=== PATIENT | male | born 1955 | race Caucasian/White ===

== ENCOUNTER 2019-11-09 13:33 | Inpatient (IN) | payer OTHER ==
[~2019-11-09] VITALS: Ht 193 cm; Wt 136.1 kg
--- OUTSIDE RECORDS SUMMARY | 2019-11-09 13:45 | XMS REPORT | Clinical Summary ---
Author Author [facility] Address Unknown Phone Unavailable Care Team Providers Care Tool Crib Attendant Name Role Phone Provider, Unknown PCP Unavailable Allergies Comments Active Allergy Reactions Severity Noted Date nausea Pentazocine 07/20/2018 Topiramate 11/13/2015 Medications End Date Status Medication Sig Dispensed Refills Start Date Active ARMOUR THYROID 30 mg 0 tablet 6 Active pantoprazole (PROTONIX) 0 40 MG EC tablet 6 Active BENICAR HCT 20-12.5 mg 0 per tablet 6 Active montelukast (SINGULAIR) Take 10 mg by 5 10 mg tablet mouth once 6 daily. Active SUMAtriptan (IMITREX) 50 TAKE 1 TAB BY 5 08/08 MG tablet MOUTH ONCE, 6 NEEDED HEADACHE,INST R:MAY REPEAT ONE TIME AFTER 2 HOURS Active phentermine (ADIPEX-P) TAKE 1 TABLET 0 10/16/2 01 37.5 mg tablet BY MOUTH 6 EVERY DAY IN THE MORNING Active aspirin (ECOTRIN) 81 MG Take 81 mg by 0 enteric coated tablet mouth. Active folic acid (FOLVITE) 400 Take 400 mcg 0 MCG tablet by mouth. Active ezetimibe-simvastatin Take 1 tablet 0 (VYTORIN) 10-10 mg per by mouth tablet nightly. Active verapamil (CALAN) 120 MG Take 120 mg 0 tablet by mouth 2 (two) times a day. Active divalproex (DEPAKOTE) 500 Take 500 mg 0 MG EC tablet by mouth 3 (three) times a day. Active cholecalciferol, vitamin Take 10,000 0 D3, (VITAMIN D3) 5,000 tablets by unit tablet mouth. Active zinc 50 mg tablet Take by 0 mouth. Active potassium 99 mg tablet Take 120 0 tablets by mouth. Active magnesium 250 mg tablet Take 500 0 tablets by mouth. Active Linzess 72 mcg capsule TAKE 1 30 capsule 4 CAPSULE BY 0 MOUTH EVERY DAY BEFORE BREAKFAST 08/04/2019 Discontinued linaclotide (LINZESS) 72 Take 1 30 capsule 4 0 mcg capsule capsule (72 9 mcg total) by mouth daily before breakfast. Active Problems Problem Noted Date Gastroparesis 07/20/2018 Chronic constipation 07/20/2018 Gastroesophageal reflux disease 07/20/2018 Encounters Care Team Description Date Type Specialty Casey Leal NP 08/04/2019 Refill Gastroenterology after 11/08/2018 Family History Medical History Relation Name Comments Cancer Paternal Aunt Relation Name Status Comments Paternal Aunt Social History Date Tobacco Use Types Packs/Day Years Used Never Smoker Smokeless Tobacco: Never Used Drinks/Week oz/Week Comments Alcohol Use No Sex Assigned at Date Recorded Not on file Industry Job Start Date Occupation Not on file Not on file Not on file Travel End Travel History Travel Start No recent travel history available. Last Filed Vital Signs Not on file Plan of Treatment Health Maintenance Due Date Last Done Comments DIABETIC RETINAL EYE EXAM 1955 DIABETIC FOOT EXAM 07/18/1965 URINE MICROALBUMIN 07/18/1965 COLONOSCOPY SCREENING 07/18/2005 SHINGLES VACCINES (#1) 07/18/2005 INFLUENZA VACCINE 10/25/2019 Results Not on fileafter 11/08/2018 Insurance Type Payer Benefit Subscriber ID Effective Phone Address Plan / Dates Group HMO AETNA AETNA xxxxxxxxxx 2008-P HMO,POS,EP resent O, MC/EC [phone] Advance Directives For more information, please contact: [phone] Patient Hand Pattern Marker Explanation Type Date Recorded Advance Directives, Living Will and 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
--- OUTSIDE RECORDS SUMMARY | 2019-11-09 13:46 | XMS REPORT | Continuity of Care Document ---
Author Author [facility] Rikki Information STEVEN [place] Information Exchange Address Unknown Phone Unavailable Care Team Providers Care Clinical Dermatologist Name Role Phone [facility] [employer] Information Exchange Unavailable Un available Problems Problem Status Onset Date Classification Date Reported Comments Source PNA Active 1 04/08/2016 [facility] PROLAPSED LUMBAR INTERVERTEBRAL DISC Active 08/22/2016 [facility] Seizure (finding) Active 04/23/2016 Problem 02/04/2019 mini siezures- pt did not know he had t hem [facility] Transient ischemic attack (disorder) Active 04/23/2016 Problem 02/04/2019 [facility] G97.0 Active 09/04/2015 [facility] Epidermoid cyst of skin of scalp (disorder) Active 08/22/2014 Problem 02/04/2019 Data migrated from [employer] on 08/30/14. [facility] Allergic rhinitis (disorder) A ctive 08/22/2013 Problem 02/04/2019 Data migrated from [employer] on . [facility] Anxiety disorder (disorder) Ac tive 08/22/2013 Problem 02/04/2019 Data migrated from [employer] on . Medical [facility] Benign essential hypertension (disorder) Active 08/22/2013 Problem 02/04/2019 Data migrated from [employer] on 07/25/14. [facility] Coronary arteriosclerosis (disorder) Active 08/22/2013 Problem 02/04/2019 Data migrated from [employer] on . [facility] Gastroesophageal reflux disease (disorder) Active 08/22/2013 Problem 02/04/2019 Data migrated from [employer] on 07/25/14. [facility] Hyperlipidemia (disorder) Acti ve 08/22/2013 Problem 02/04/2019 Data migrated from [employer] on . [facility] Impaired glucose tolerance (disorder) Active 08/22/2013 Problem 02/04/2019 Data migrated from [employer] on . [facility] Insomnia (disorder) Active 08/22/2013 Problem 02/04/2019 Data migrated from [employer] on . [facility] Migraine (disorder) Active 08/22/2013 Problem 02/04/2019 Data migrated from [employer] on . [facility] Myocardial infarction (disorder) Resolved 08/24/2007 Problem 02/04/2019 [facility] Appendicitis (disorder) Resolv ed Problem Medical Group,[facility] Arthritis (disorder) Resolved Problem 02/04/2019 [facility] Asthma (disorder) Resolved Problem 02/04/2019 [facility] Bronchitis (disorder) Resolved Problem 02/04/2019 [facility] History of - pneumonia (context-dependent category) Active Problem 02/04/2019 [facility] Group Heart disease (disorder) Resol denise Problem Medical [facility] Hypercholesterolemia (disorder) Resolved Problem [facility] Hypertensive disorder, systemic arterial (disorder) Resolved Problem 02/04/2019 [facility] Hypothyroidism (disorder) Acti ve Problem Medical [facility] Obesity (disorder) Active Problem 02/04/2019 [facility] Osteoarthritis (disorder) Acti ve Problem Medical [facility] Large prostate (finding) Resol denise Problem Medical [facility] Cyst of scalp (disorder) Resol denise Problem Medical Group,[facility] Herniated structure (morphologic abnormality) Resolved Problem 09/09/2015 [facility] Abnormal gastric motility (finding) Active Problem [facility] Viral upper respiratory tract infection (disorder) Active Problem 02/04/2019 [facility] PNEUMONIA IN DISEASES CLASSIFIED ELSEWHE Active [facility] Medications Medication Details Route Status Patient Instructions Ordering Provider Order Date Source cetirizine 10 mg oral tablet 1 0 mg = 1 tab, PO, Daily, # 30 tab, 0 Refill(s), Pharmacy: [id number] Active 02/01/2019 [facility] Codeine Phosphate 0.5 MG/ML / Guaifenesi n 15 MG/ML Oral Solution 10 mL, PO, Q4H, PRN for cough, # 200 mL, 0 Refill(s) Active 02/01/2019 [facility] Levofloxacin 500 MG Oral Tablet [Levaquin] 500 mg = 1 tab, PO, Q24H, X 10 day, # 10 tab, 0 Refill(s), Pharmacy: [facility]/pharmacy #[id number] Active 06/22/2018 [facility] 200 ACTUAT Albuterol 0.09 MG/ACTUAT Mete red Dose Inhaler [ProAir HFA] 2 puff, INHALER, Q4H, PRN for wheezing, # 8.5 gm, 0 Refill(s), Pharmacy: [facility][id number] Active 06/22/2018 [facility] Levofloxacin 500 MG Oral Tablet [Levaquin] 500 mg = 1 tab, PO, Q24H, X 10 day, # 10 tab, 0 Refill(s), Pharmacy: [facility] Inactive 06/22/2018 [facility] Codeine Phosphate 2 MG/ML / Guaifenesin 20 MG/ML Oral Solution 10 mL, PO, Q4H, PRN for cough, X 7 day, # 180 mL, 0 Refill(s) Active 06/22/2018 [facility] 200 ACTUAT Albuterol 0.09 MG/ACTUAT Mete red Dose Inhaler [ProAir HFA] 2 puff, INHALER, Q4H, PRN for wheezing, # 8.5 gm, 0 Refill(s), Pharmacy: [facility] Inactive 06/22/2018 [facility] Metoclopramide 10 MG Oral Tablet 10 mg = 1 tab, PO, Daily, # 360 tab, 0 Refill(s) Active 06/22/2018 [facility] SUMAtriptan 100 mg oral tablet 100 mg = 1 tab, PO, Daily, PRN for migraine headache, # 18 tab, 0 Refill(s) Active 06/22/2018 [facility] folic acid 0.8 mg oral tablet 0.8 mg = 1 tab, PO, Daily, 0 Refill(s) Active 06/22/2018 [facility] pantoprazole 40 mg oral enteric coated tablet 40 mg = 1 tab, PO, Daily, # 90 tab, 0 Refill(s) Active 06/22/2018 [facility] Vitamin D3 10,000 intl units oral capsule 10,000 IntlUnit = 1 cap, PO, 0 Refill(s) Active 06/22/2018 [facility] Hydrochlorothiazide 12.5 MG / Olmesartan medoxomil 20 MG Oral Tablet 1 tab, PO, Daily, # 90 tab, 0 Refill(s) Active 06/22/2018 [facility] ezetimibe 10 MG Oral Tablet [Zetia] 10 mg = 1 tab, PO, Daily, # 90 tab, 0 Refill(s) Active 06/22/2018 [facility] gabapentin 100 MG Oral Capsule 100 mg = 1 cap, PO, Q8H, Please send all requests for new Rx or refills to the patient's virtual recruiter or physiognomist, not to Dr. Ceja, # 90 cap, 0 Refill(s) Active 02/18/2017 [facility] Furosemide 40 MG Oral Tablet 4 0 mg = 1 tab, PO, BID, Please send all requests for new Rx or refills to the patient's virtual recruiter or physiognomist, not to Dr. Ceja, # 60 tab, 0 Refill(s) Active 02/18/2017 [facility] cetirizine 10 mg oral tablet 1 0 mg = 1 tab, PO, Bedtime, Please send all requests for new Rx or refills to the patient's virtual recruiter or physiognomist, not to Dr. Ceja, # 30 tab, 0 Refill(s) Active 02/18/2017 [facility] verapamil 120 mg oral capsule, extended release 120 mg = 1 tab, PO, Daily, do not crush or chew Please send all requests for new Rx or refills to the patient's virtual recruiter or physiognomist, not to Dr. Jonh Pool, # 30 tab, 0 Refill(s) Active 02/18/2017 [facility] nter SUMAtriptan 50 mg oral tablet 50 mg = 1 tab, PO, Q2H, PRN Headache 4-6, 0 Refill(s) Active 02/18/2017 [facility] nter potassium chloride 20 mEq oral tablet, extended releas e 40 mEq = 2 tab, PO, BID, do not crush or chew Follow your Potassium level with your human services manager. Please send all requests for new Rx or refills to the patient's virtual recruiter or physiognomist, not to Dr. Ceja, # 120 tab, 0 Refill(s) Active 02/18/2017 [facility] Sumatriptan Notes: (Same As: I mitrex) No Longer Active 02/13/2017 [facility] gabapentin 100 MG Oral Capsule Notes: (Same as: Neurontin) No Longer Active 02/12/2017 [facility] Furosemide 40 MG Oral Tablet 4 0 mg, 1 tab, Route: PO, Drug form: TAB, BID, Dosing Weight 125, kg, Start date: 02/11/17 9:00:00 [employer]IES[employer] PRODUCTION ASSOCIATE, Duration: 30 day, Stop date: 03/12/17 17:00:00 BIODIESEL PRODUCTION ASSOCIATE No Longer Active 02/11/2017 [facility] Antwan Thyroid Notes: (Same As : Antwan Thyroid, S-P-T) No Longer Active 02/11/2017 [facility] Verapamil 120 mg, 1 tab, Route : PO, Drug form: ERTAB, Daily, Dosing Weight 125, kg, Start date: 02/11/17 9:00:00 BIODIESEL PRODUCTION ASSOCIATE, Duration: 30 day, Stop date: 03/12/17 9:00:00 BIODIESEL PRODUCTION ASSOCIATE No Longer Active 02/11/2017 [facility] nter 24 HR Divalproex Sodium 500 MG Extended Release Tablet Notes: (Same as: Depakote ER) Once daily dosing; indicated for migraines. Divalproex sodium extended-release tab. Do not chew or crush. "Do Not Crush" No Longer Active 02/11/2017 [facility] Sodium Chloride 0.9% (Bolus) IV 250 mL, 250 ml/hr, Infuse Over: 1 hr, Route: IV, 250, Drug form: INJ, ONCE, Priority: STAT, Dosing Weight 125 kg, Start date: 02/10/17 23:04:00 BIODIESEL PRODUCTION ASSOCIATE, Stop date: 02/10/17 23:04:00 BIODIESEL PRODUCTION ASSOCIATE Inactive 02/11/2017 [facility] Crestor Notes: (Same As: Crest or) No Longer Active 02/11/2017 [facility] cetirizine Notes: (Same As: Nigel rtec) No Longer Active 02/11/2017 [facility] rosuvastatin Notes: Same as Cr estor Inactive 02/11/2017 [facility] Loratadine 10 mg, Route: PO, B edtime, Dosing Weight 125, kg, Start date: 02/10/17 21:00:00 BIODIESEL PRODUCTION ASSOCIATE, Duration: 30 day, Stop date: 03/11/17 21:00:00 BIODIESEL PRODUCTION ASSOCIATE Inactive 02/11/2017 [facility] Sodium Chloride 0.9% (Bolus) IV 500 mL, 250 ml/hr, Infuse Over: 2 hr, Route: IV, 500, Drug form: INJ, ONCE, Priority: STAT, Dosing Weight 125 kg, Start date: 02/10/17 20:11:00 BIODIESEL PRODUCTION ASSOCIATE, Stop date: 02/10/17 20:11:00 BIODIESEL PRODUCTION ASSOCIATE Inactive 02/11/2017 [facility] Pulmicort Respules Notes: ([facility] e As: Pulmicort) No Longer Active 02/10/2017 [facility] Sumatriptan Notes: (Same As: I mitrex) No Longer Active 02/10/2017 [facility] Potassium Chloride Notes: ([facility] e as: K-Dur 20) "Do Not Crush" With food and full glass of water No Longer Active 02/10/2017 [facility] nter SUMAtriptan 50 mg oral tablet 50 mg = 1 tab, PO, ONCE, PRN Headache 1-3, 0 Refill(s) No Longer Active 02/10/2017 [facility] nter Verapamil 120 mg, PO, Daily, 0 Refill(s) No Longer Active 02/10/2017 [facility] 24 HR Divalproex Sodium 500 MG Extended Release Tablet 500 mg = 1 tab, PO, Daily, 0 Refill(s) Active 02/10/2017 [facility] nter rosuvastatin 40 mg oral tablet 40 mg = 1 tab, PO, Bedtime, 0 Refill(s) Active 02/10/2017 [facility] heparin sodium, porcine 2500 UNT/ML Injectable Solutio n Notes: porcine heparin No Longer Active 02/10/2017 [facility] nter NS (Bolus) IV 250 mL, 250 ml/h r, Infuse Over: 1 hr, Route: IV, 250, Drug form: INJ, ONCE, Priority: STAT, Dosing Weight 125 kg, Start date: 02/09/17 17:28:00 BIODIESEL PRODUCTION ASSOCIATE, Stop date: 02/09/17 17:28:00 BIODIESEL PRODUCTION ASSOCIATE Inactive 02/09/2017 [facility] Potassium Chloride Notes: ([facility] as: K-Dur 20) "Do Not Crush" With food and full glass of water No Longer Active 02/09/2017 [facility] Sodium Chloride 0.9% (Bolus) IV 250 mL, 250 ml/hr, Infuse Over: 1 hr, Route: IV, 250, Drug form: INJ, ONCE, Dosing Weight 125 kg, Start date: 02/09/17 16:17:00 BIODIESEL PRODUCTION ASSOCIATE, Stop date: 02/09/17 16:17:00 BIODIESEL PRODUCTION ASSOCIATE Inactive 02/09/2017 [facility] verapamil 120 mg oral tablet 1 20 mg = 1 tab, PO, Daily, 0 Refill(s) No Longer Active 02/09/2017 [facility] divalproex sodium 125 mg oral enteric co ated tablet (Depakote) 125 mg = 1 tab, PO, Daily, 0 Refill(s) No Longer Active 02/09/2017 [facility] thyroid (CORRECTION) 60 MG Oral Tablet [[place] Thyroid] 60 mg = 1 tab, PO, Daily, # 30 tab, 1 Refill(s) Active 02/09/2017 [facility] nter Potassium Chloride Notes: ([facility] e as: K-Dur 20) "Do Not Crush" With food and full glass of water No Longer Active 02/09/2017 [facility] Codeine Phosphate 10 MG / Guaifenesin 30 0 MG Oral Tablet Notes: (Same As: Robitussin AC) No Longer Active 02/09/2017 [facility] nter Furosemide Notes: (Same as: Yulia ramirez) MEDICATION WASTE Product Size: 40 mg Product Wasted: ___ mg No Longer Active 02/08/2017 [facility] montelukast Notes: (Same as:Si ngulair) No Longer Active 02/08/2017 [facility] divalproex sodium 125 mg oral enteric co ated tablet (Depakote) Notes: (Same as: Depakote Delayed Releas e) Do not confuse with the extended-release tablet. Delayed absorption, enteric coated tablet. Do not crush No Longer Active 02/08/2017 [facility] Furosemide 20 MG Oral Tablet N otes: (Same as: Lasix) May cause GI upset. Give with food or milk. No Longer Active 02/07/2017 [facility] pantoprazole Notes: Tablet joshua uld not be chewed or crushed. (Same as: Protonix) N o Longer Active 02/07/2017 [facility] nter Verapamil Notes: (Same As: Hardy an, Isoptin) "Avoid grapefruit and grapefruit juice" No Longer Active 02/07/2017 [facility] nter [place] Thyroid Notes: (Same As : Antwan Thyroid, S-P-T) No Longer Active 02/07/2017 [facility] Hydrochlorothiazide 12.5 MG / Olmesartan medoxomil 20 MG Oral Tablet [Benicar HCT 20/12.5] 1 tab, Route: PO, Drug Form: TAB, Dosing Weight 121.364, kg, Daily, Start date: 02/07/17 9:00:00 BIODIESEL PRODUCTION ASSOCIATE, Duration: 30 day, Stop date: 03/08/17 9:00:00 BIODIESEL PRODUCTION ASSOCIATE No Longer Active 02/07/2017 [facility] nter Microzide Notes: (Same as: Sarwat rozide) With food. No Longer Active 02/07/2017 [facility] Folic Acid 0.4 mg, 1 tab, Rout e: PO, Drug form: TAB, Daily, Dosing Weight 121.364, kg, Start date: 02/07/17 9:00:00 BIODIESEL PRODUCTION ASSOCIATE, Duration: 30 day, Stop date: 03/08/17 9:00:00 BIODIESEL PRODUCTION ASSOCIATE No Longer Active 02/07/2017 [facility] nter clopidogrel Notes: (Same As: P lavix) No Longer Active 02/07/2017 [facility] Vitamin D3 Notes: Same as: Vit poon D3 No Longer Active 02/07/2017 [facility] Aspirin Enteric Coated Notes: Do not crush or chew. (Same As: Ecotrin) No Longer Active 02/07/2017 [facility] nter Benicar 20 mg, 1 tab, Route: P O, Drug form: TAB, Daily, Start date: 02/07/17 9:00:00 BIODIESEL PRODUCTION ASSOCIATE, Duration: 30 day, Stop date: 03/08/17 9:00:00 BIODIESEL PRODUCTION ASSOCIATE No Longer Active 02/07/2017 [facility] influenza virus vaccine, inactivated Notes: (Same as: Fluzone Quadrivalent, Fluarix Quadrivalent) For 3 years of age and older (0.5 mL IM) Shake well before use Inactive 02/07/2017 [facility] nter Docusate Notes: (Same as: Cola ce) (Do Not Crush) No Longer Active 02/07/2017 [facility] Albuterol 0.833 MG/ML / Ipratropium Brom kathy 0.167 MG/ML Inhalant Solution [DuoNeb] Notes: (Same as: Duoneb) No Longer Active 02/07/2017 [facility] Dextromethorphan Hydrobromide 10 MG / Gu aifenesin 200 MG Oral Capsule Notes: (dextromethorphan-guaifenesin 10- 100mg/5ml 10 ml oral SOLN ud) (Same as: Robitussin DM) N o Longer Active 02/07/2017 [facility] nter Ondansetron Notes: (Same as: Omayra lane) MEDICATION WASTE Product Size: 4 mg Product Wasted: ___ mg No Longer Active 02/07/2017 [facility] Acetaminophen 325 MG / Hydrocodone Lamar trate 5 MG Oral Tablet Notes: (Same as: Kulm 325/5) Do not ex ceed 4gm/day of acetaminophen. No Longer Active 02/07/2017 [facility] Acetaminophen Notes: Do not ex ceed 4 gm/day. (Same as: Tylenol) No Longer Active 02/07/2017 [facility] Docusate 100 mg, Route: PO, Dr ug form: CAP, BID, Dosing Weight 121.364, kg, Start date: 02/05/17 17:00:00 BIODIESEL PRODUCTION ASSOCIATE, Duration: 30 day, Stop date: 03/07/17 9:00:00 BIODIESEL PRODUCTION ASSOCIATE Inactive 02/05/2017 [facility] nter Dextromethorphan Hydrobromide 10 MG / Gu aifenesin 200 MG Oral Capsule 1 cap, Route: PO, Drug Form: CAP, Dosing Weight 121.364, kg, Q4H, PRN Cough, Start date: 02/05/17 15:14:00 BIODIESEL PRODUCTION ASSOCIATE, Duration: 30 day, Stop date: 03/07/17 15:13:00 BIODIESEL PRODUCTION ASSOCIATE Inactive 02/05/2017 [facility] Ondansetron 4 mg, Route: IVP, Q6H, Dosing Weight 121.364, kg, PRN Nausea & Vomiting, Start date: 02/05/17 15:14:00 BIODIESEL PRODUCTION ASSOCIATE, Duration: 30 day, Stop date: 03/07/17 15:13:00 BIODIESEL PRODUCTION ASSOCIATE Inactive 02/05/2017 [facility] nter Acetaminophen 325 MG / Hydrocodone Lamar trate 5 MG Oral Tablet 1 tab, Route: PO, Drug Form: TAB, Dosing Weight 121.364, kg, Q4H, PRN Pain Score 4-6, Start date: 02/05/17 15:14:00 BIODIESEL PRODUCTION ASSOCIATE, Duration: 30 day, Stop date: 03/07/17 15:13:00 BIODIESEL PRODUCTION ASSOCIATE Inactive 02/05/2017 [facility] Acetaminophen 100.4 F, Start date: 02/05/17 15:14:00 BIODIESEL PRODUCTION ASSOCIATE, Duration: 30 day, Stop date: 03/07/17 15:13:00 BIODIESEL PRODUCTION ASSOCIATE Inactive 02/05/2017 [facility] Albuterol 0.833 MG/ML / Ipratropium Brom kathy 0.167 MG/ML Inhalant Solution [DuoNeb] 3 ml, Route: NEB, Drug Form: SOLN, Dosin g Weight 121.364, kg, PRN, PRN Respiratory Protocol, Start date: 02/05/17 15:14:00 BIODIESEL PRODUCTION ASSOCIATE, Duration: 30 day, Stop date: 03/07/17 15:13:00 BIODIESEL PRODUCTION ASSOCIATE Inactive 02/05/2017 [facility] Hydromorphone Notes: Same as D ilaudid No Longer Active 08/27/2016 [facility] Robaxin Notes: (Same as:Robaxi n) Inactive 08/27/2016 [facility] Robaxin Notes: (Same as:Robaxi n) Inactive 08/27/2016 [facility] Dilaudid Notes: Same as Dilaud id Inactive 08/27/2016 [facility] Lactated Ringers 1,000 mL 1,00 0 mL, Rate: 125 ml/hr, Infuse over: 8 hr, Route: IV, Dosing Weight 121.364 kg, Total Volume: 1,000, Start date: 08/27/16 12:23:00 CDT, Duration: 30 day, Stop date: 09/26/16 12:22:00 CDT No Longer Active 08/27/2016 [facility] Promethazine Notes: Do not giv e IV push. (Same as: Phenergan) No Longer Active 08/27/2016 [facility] Hydromorphone Notes: Same as D ilaudid No Longer Active 08/27/2016 [facility] Acetaminophen 325 MG / Hydrocodone Lamar trate 10 MG Oral Tablet Notes: Do not exceed 4gm/day of acetamin ophen. (Same as: Kulm 325/10) No Longer Active 08/27/2016 [facility] Ondansetron Notes: (Same as: Omayra lane) MEDICATION WASTE Product Size: 4 mg Product Wasted: ___ mg No Longer Active 08/27/2016 [facility] Lactated Ringers 1,000 mL 1,00 0 mL, Rate: 125 ml/hr, Infuse over: 8 hr, Route: IV, Dosing Weight 125.511 kg, Total Volume: 1,000, Start date: 08/27/16 10:37:00 CDT, Duration: 30 day, Stop date: 09/26/16 10:36:00 CDT Inactive 08/27/2016 [facility] Hydromorphone Notes: Same as D ilaudid No Longer Active 08/15/2016 [facility] Acetaminophen 325 MG / Hydrocodone Lamar trate 10 MG Oral Tablet Notes: Do not exceed 4gm/day of acetamin ophen. (Same as: Kulm 325/10) No Longer Active 08/15/2016 [facility] Ondansetron Notes: (Same as: Omayra lane) MEDICATION WASTE Product Size: 4 mg Product Wasted: ___ mg No Longer Active 08/15/2016 [facility] Promethazine Notes: Do not giv e IV push. (Same as: Phenergan) No Longer Active 08/15/2016 [facility] Lactated Ringers 1,000 mL 1,00 0 mL, Rate: 125 ml/hr, Infuse over: 8 hr, Route: IV, Dosing Weight 125.511 kg, Total Volume: 1,000, Start date: 08/15/16 10:45:00 CDT, Duration: 30 day, Stop date: 09/14/16 10:44:00 CDT No Longer Active 08/15/2016 [facility] Lactated Ringers 1,000 mL 1,00 0 mL, Rate: 125 ml/hr, Infuse over: 8 hr, Route: IV, Dosing Weight 125.511 kg, Total Volume: 1,000, Start date: 08/15/16 9:29:00 CDT, Duration: 30 day, Stop date: 09/14/16 9:28:00 CDT Inactive 08/15/2016 [facility] celecoxib 200 MG Oral Capsule [Celebrex] 200 mg = 1 cap, PO, Daily, # 30 cap, 0 Refill(s) Active 08/14/2016 [facility] Methocarbamol 750 MG Oral Tablet [Robaxin] 1,500 mg = 2 tab, PO, TID, # 42 tab, 0 Refill(s) Active 08/14/2016 [facility] verapamil 40 mg oral tablet 40 mg = 1 tab, PO, BID, # 90 tab, 0 Refill(s) Active 08/14/2016 [facility] Acetaminophen 325 MG / Hydrocodone Lamar trate 10 MG Oral Tablet [Kulm 10/325] 1-2 tab, PO, Q4-6H, PRN Pain, # 30 tab, 0 Refill(s) Active 08/14/2016 [facility] Divalproex Sodium 125 MG Enteric Coated Tablet 250 mg = 2 tab, PO, Bedtime, # 90 tab, 0 Refill(s) Active 08/14/2016 [facility] midazolam Notes: (Same as: Faisal sed) MEDICATION WASTE Product Size: 2 mg Product Wasted: ___ mg Inactive 09/06/2015 [facility] Sublimaze Notes: (Same as: Sub limaze) Preservative free. Inactive 09/06/2015 [facility] Allergies, Adverse Reactions, Alerts Substance Category Reaction Severity Reaction type Status Date Reported Comments Source topiramate<sup>1</sup> Asserti on Drug aller gy Active 08/22/2013 Data migrated from [employer] on 06/22/14. Originally documented as TOPAMAX. memory loss [facility] Assertion anaphalaxis Severe Propensity to adverse reactions to substance Active Medical Group Topamax Assertion Drug allergy Active [facility] Immunizations No Data Provided for This Section Results Order Name Results Value Reference Range Date Interpretation Comments Source MOLECULAR DIAGNOSTIC EBV PCR Qnt (lo g) <2.8 02/16/2017 [facility] MOLECULAR DIAGNOSTIC EBV PCR Qnt Not Detected (02/16/17 5:04 AM) 02/16/2017 [facility] CHEM PANEL Phosphorus 3.6 2.5 - 4.5 02/15/2017 [facility] CHEM PANEL Magnesium Lvl 2.2 1.8 - 2.4 02/15/2017 [facility] CHEM PANEL eGFR 71 02/15/2017 Result Comment: The eGFR is calculated using the CKD-EPI formula. In most young, healthy individuals the eGFR will be >90 mL/min/1.73m2. The eGFR declines with age. An eGFR of 60-89 may be normal in some populations, particularly the elderly, for whom the CKD-EPI formula has not been extensively validated. Use of the eGFR is not recommended in the following populations:

Individuals with unstable creatinine concentrations, including patients and those with serious co-morbid conditions.

Patients with extremes in muscle mass or diet.

The data above are obtained from the National Kidney Disease Education Program (NKDEP) which additionally recommends that when the eGFR is used in patients with extremes of body mass index for purposes of drug dosing, the eGFR should be multiplied by the estimated BMI. [facility] CHEM PANEL Calcium Lvl 8.5 8.5 - 10.5 02/15/2017 [facility] CHEM PANEL AGAP 13.1 10.0 - 20.0 02/15/2017 [facility] CHEM PANEL CO2 30 24 - 32 02/15/2017 [facility] CHEM PANEL Chloride Lvl 98 95 - 109 02/15/2017 [facility] CHEM PANEL Potassium Lvl 4.1 3.5 - 5.1 02/15/2017 [facility] CHEM PANEL Sodium Lvl 137 135 - 145 02/15/2017 [facility] CHEM PANEL Creatinine Lvl 1.11 0.50 - 1.40 02/15/2017 [facility] CHEM PANEL Glucose Lvl 94 70 - 99 02/15/2017 [facility] CHEM PANEL BUN 15 7 - 22 02/15/2017 [facility] IMMUNOLOGY CMV IgM 0.8 02/15/2017 [facility] IMMUNOLOGY CMV IgG React peggy *ABN* (02/15/17 3:28 AM) Non Reactive 02/15/2017 [facility] IMMUNOLOGY EBV VCA IgM 1.4 <=0.8 AI 02/15/2017 [facility] IMMUNOLOGY EBV VCA IgG >8.0 <=0.8 AI 02/15/2017 [facility] IMMUNOLOGY EBV NA IgG >8.0 <=0.8 AI 02/15/2017 [facility] CHEM PANEL Phosphorus 3.0 2.5 - 4.5 02/14/2017 [facility] CHEM PANEL Magnesium Lvl 2.1 1.8 - 2.4 02/14/2017 [facility] ELECTROLYTES Sodium Lvl 138 135 - 145 02/14/2017 [facility] ELECTROLYTES Creatinine Lvl 1.0 2 0.50 - 1.40 02/14/2017 [facility] ELECTROLYTES CO2 29 24 - 32 02/14/2017 [facility] ELECTROLYTES AGAP 13.1 10.0 - 20.0 02/14/2017 [facility] ELECTROLYTES Calcium Lvl 8.4 8.5 - 10.5 02/14/2017 [facility] ELECTROLYTES eGFR 79 02/14/2017 Result Comment: The eGFR is calculated using the CKD-EPI formula. In most young, healthy individuals the eGFR will be >90 mL/min/1.73m2. The eGFR declines with age. An eGFR of 60-89 may be normal in some populations, particularly the elderly, for whom the CKD-EPI formula has not been extensively validated. Use of the eGFR is not recommended in the following populations:

Individuals with unstable creatinine concentrations, including patients and those with serious co-morbid conditions.

Patients with extremes in muscle mass or diet.

The data above are obtained from the National Kidney Disease Education Program (NKDEP) which additionally recommends that when the eGFR is used in patients with extremes of body mass index for purposes of drug dosing, the eGFR should be multiplied by the estimated BMI. [facility] ELECTROLYTES Chloride Lvl 100 95 - 109 02/14/2017 [facility] ELECTROLYTES Potassium Lvl 4.1 3.5 - 5.1 02/14/2017 [facility] ELECTROLYTES BUN 13 7 - 22 02/14/2017 [facility] ELECTROLYTES Glucose Lvl 93 70 - 99 02/14/2017 [facility] CHEM PANEL Phosphorus 3.0 2.5 - 4.5 02/13/2017 [facility] CHEM PANEL eGFR 69 02/13/2017 Result Comment: The eGFR is calculated using the CKD-EPI formula. In most young, healthy individuals the eGFR will be >90 mL/min/1.73m2. The eGFR declines with age. An eGFR of 60-89 may be normal in some populations, particularly the elderly, for whom the CKD-EPI formula has not been extensively validated. Use of the eGFR is not recommended in the following populations:

Individuals with unstable creatinine concentrations, including patients and those with serious co-morbid conditions.

Patients with extremes in muscle mass or diet.

The data above are obtained from the National Kidney Disease Education Program (NKDEP) which additionally recommends that when the eGFR is used in patients with extremes of body mass index for purposes of drug dosing, the eGFR should be multiplied by the estimated BMI. [facility] CHEM PANEL Calcium Lvl 8.3 8.5 - 10.5 02/13/2017 [facility] CHEM PANEL CO2 28 24 - 32 02/13/2017 [facility] CHEM PANEL Chloride Lvl 100 95 - 109 02/13/2017 [facility] CHEM PANEL Potassium Lvl 4.2 3.5 - 5.1 02/13/2017 [facility] CHEM PANEL AGAP 12.2 10.0 - 20.0 02/13/2017 [facility] CHEM PANEL Glucose Lvl 102 70 - 99 02/13/2017 [facility] CHEM PANEL BUN 13 7 - 22 02/13/2017 [facility] CHEM PANEL Sodium Lvl 136 135 - 145 02/13/2017 [facility] CHEM PANEL Creatinine Lvl 1.14 0.50 - 1.40 02/13/2017 [facility] CHEM PANEL Magnesium Lvl 2.1 1.8 - 2.4 02/13/2017 [facility] URINE CHEM Total Volume 2680 02/13/2017 [facility] URINE CHEM Total Volume 2680 02/13/2017 [facility] URINE CHEM U24 Creatinine 2203 02/13/2017 [facility] URINE CHEM U Creat mg/dL 82.2 02/13/2017 [facility] URINE CHEM U VMA 2.5 Undefined mg/L 02/13/2017 [facility] URINE CHEM U24 VMA 6.7 0.0 - 7.5 02/13/2017 Result Comment:
This test was yogesh lockwood and its performance characteristics
determined by [facility]. It has not been cleared or
approved by the Food and Drug Administration.
Performed At: [facility]
[address], [place] [id number]
Vivian Scott MD Ph:[phone] [facility] URINE CHEM U24 Normetanephrine 485 82 - 27275 02/13/2017 Result Comment: (Hypertensive) >17 years 11 months: 110 - 1050 [facility] URINE CHEM U24 Metanephrine 142 45 61237 02/13/2017 Result Comment: (Hypertensive) >17 years 11 months: 35 - 460
Performed At: [facility]
[address] [place], [place] [id number]
Vivian Scott MD Ph:[phone] [facility] URINE CHEM U Normetaneph 181 Undefined microgram/Liter 02/13/2017 [facility] URINE CHEM U Metanephrine 53 Undefined microgram/Liter 02/13/2017 [facility] URINE CHEM Total Volume 2680 02/13/2017 [facility] URINE CHEM Total Volume 2680 02/13/2017 [facility] URINE CHEM U Creat mg/dL 82.2 Not Estab. mg/dL 02/13/2017 [facility] URINE CHEM U24 Creatinine 2203 1000 - 2000 02/13/2017 [facility] URINE CHEM U Cortisol Free 9 Undefined microgram/Liter 02/13/2017 [facility] URINE CHEM U24 [place] 24 0 - 5024 02/13/2017 Result Comment:
This test was yogesh lockwood and its performance characteristics
determined by [facility]. It has not been cleared or
approved by the Food and Drug Administration.
Performed At: [facility]
[address], [place] [id number]
Vivian Scott MD Ph:[phone]
Performed At: [facility]
[address], [place] [id number]
Jem Koo MD Ph:[phone] [facility] CHEM PANEL Uric Acid 5.7 3.8 - 8.0 02/11/2017 [facility] ENDOCRINOLOGY Cortisol 13.4 02/11/2017 [facility] ENDOCRINOLOGY Aldosterone 19.5 0.0 - 30.0 02/11/2017 Result Comment:
This test was yogesh lockwood and its performance characteristics
determined by [facility]. It has not been cleared or
approved by the Food and Drug Administration.
Performed At: [facility]
[address], [place] [id number]
Vivian Scott MD Ph:[phone] [facility] ENDOCRINOLOGY Normetanephrine 84 0 - 145 02/11/2017 [facility] ENDOCRINOLOGY Metanephrine 14 0 - 62 02/11/2017 Result Comment:
Concentrations of Normetanephrine between 146 and 487
pg/mL, and Metanephrine between 63 and 255 pg/mL are
considered indeterminate. Follow-up biochemical testing is
recommended when patient levels fall within this
indeterminate range. These tests include repeat testing of
plasma/urinary fractionated metanephrines and plasma
catecholamines.
Performed At: [facility]
[address], [place] [id number]
Vivian Scott MD Ph:[phone] [facility] ENDOCRINOLOGY Renin Activity 19 .586 0.167 - 5.380 02/11/2017 Result Comment: This test was developed and its performance characteristics
determined by [facility]. It has not been cleared or
approved by the Food and Drug Administration.
Performed At: [facility]
[address], [place] [id number]
Vivian Scott MD Ph:[phone] [facility] SPECIAL CHEMISTRY ACTH Lvl 14 0 - 46 02/11/2017 [facility] URINE CHEM U Sodium 113 02/11/2017 [facility] URINE CHEM U Prot/Creat <0.15 02/11/2017 [facility] URINE CHEM U Protein <5.0 02/11/2017 [facility] URINE CHEM U Chloride 151 02/11/2017 [facility] URINE CHEM U Creatinine 33.90 02/11/2017 [facility] URINE CHEM U Osmolality 403 300 - 800 02/11/2017 [facility] URINE CHEM U Potassium 37.9 02/11/2017 [facility] CARDIAC ENZYMES BNP 12 <=100 pg/mL 02/11/2017 [facility] CHEM PANEL Bili Indirect Unabl e to Calculate 0.0 - 1.0 02/11/2017 [facility] CHEM PANEL Bili Total 0.5 0.2 - 1.3 02/11/2017 [facility] CHEM PANEL Bili Direct <0.1 0.0 - 0.3 02/11/2017 [facility] CHEM PANEL A/G Ratio 0.8 0.7 - 1.6 02/11/2017 [facility] CHEM PANEL ALT 49 0 - 65 02/11/2017 [facility] CHEM PANEL Alk Phos 98 39 - 136 02/11/2017 [facility] CHEM PANEL AST 25 0 - 37 02/11/2017 [facility] CHEM PANEL Total Protein 6.0 6.4 - 8.4 02/11/2017 [facility] CHEM PANEL Albumin Lvl 2.6 3.5 - 5.0 02/11/2017 [facility] CHEM PANEL Globulin 3.4 2.7 - 4.2 02/11/2017 [facility] HEMATOLOGY MCV 89.0 80.0 - 94.0 02/11/2017 [facility] HEMATOLOGY Platelet 206 133 - 450 02/11/2017 [facility] HEMATOLOGY MPV 7.8 7.4 - 10.4 02/11/2017 [facility] HEMATOLOGY MCH 30.4 27.0 - 31.0 02/11/2017 [facility] HEMATOLOGY RDW 15.2 11.5 - 14.5 02/11/2017 [facility] HEMATOLOGY MCHC 34.2 32.0 - 36.0 02/11/2017 [facility] HEMATOLOGY Hct 37.4 42.0 - 54.0 02/11/2017 [facility] HEMATOLOGY RBC 4.20 4.70 - 6.10 02/11/2017 [facility] HEMATOLOGY WBC 9.3 3.7 - 10.4 02/11/2017 [facility] HEMATOLOGY Hgb 12.8 14.0 - 18.0 02/11/2017 [facility] HEMATOLOGY Segs 67.6 45.0 - 75.0 02/11/2017 [facility] HEMATOLOGY Lymphocytes 22.6 20.0 - 40.0 02/11/2017 [facility] HEMATOLOGY Monocytes 7.8 2.0 - 12.0 02/11/2017 [facility] HEMATOLOGY Eosinophils 1.2 0.0 - 4.0 02/11/2017 [facility] HEMATOLOGY Basophils # 0.1 0.0 - 0.2 02/11/2017 [facility] HEMATOLOGY Basophils 0.8 0.0 - 1.0 02/11/2017 [facility] HEMATOLOGY Segs-Bands # 6.3 1.5 - 8.1 02/11/2017 [facility] HEMATOLOGY Lymphocytes # 2.1 1.0 - 5.5 02/11/2017 [facility] HEMATOLOGY Monocytes # 0.7 0.0 - 0.8 02/11/2017 [facility] HEMATOLOGY Eosinophils # 0.1 0.0 - 0.5 02/11/2017 [facility] HEMATOLOGY Basophils # 0.1 0.0 - 0.2 02/08/2017 [facility] HEMATOLOGY Monocytes # 1.0 0.0 - 0.8 02/08/2017 [facility] HEMATOLOGY Lymphocytes # 2.2 1.0 - 5.5 02/08/2017 [facility] HEMATOLOGY Segs-Bands # 7.2 1.5 - 8.1 02/08/2017 [facility] HEMATOLOGY Eosinophils # 0.1 0.0 - 0.5 02/08/2017 [facility] HEMATOLOGY Lymphocytes 21.2 20.0 - 40.0 02/08/2017 [facility] HEMATOLOGY Basophils 0.6 0.0 - 1.0 02/08/2017 [facility] HEMATOLOGY Monocytes 9.4 2.0 - 12.0 02/08/2017 [facility] HEMATOLOGY Segs 68.1 45.0 - 75.0 02/08/2017 [facility] HEMATOLOGY Eosinophils 0.7 0.0 - 4.0 02/08/2017 [facility] HEMATOLOGY Platelet 148 133 - 450 02/08/2017 [facility] HEMATOLOGY MPV 7.8 7.4 - 10.4 02/08/2017 [facility] HEMATOLOGY RDW 15.5 11.5 - 14.5 02/08/2017 [facility] HEMATOLOGY MCHC 34.9 32.0 - 36.0 02/08/2017 [facility] HEMATOLOGY MCH 30.8 27.0 - 31.0 02/08/2017 [facility] HEMATOLOGY Hct 38.2 42.0 - 54.0 02/08/2017 [facility] HEMATOLOGY RBC 4.34 4.70 - 6.10 02/08/2017 [facility] HEMATOLOGY MCV 88.1 80.0 - 94.0 02/08/2017 [facility] HEMATOLOGY Hgb 13.3 14.0 - 18.0 02/08/2017 [facility] HEMATOLOGY WBC 10.5 3.7 - 10.4 02/08/2017 [facility] URINE AND STOOL UA Nitrite Negative (02/07/17 1:50 AM) Negative 02/07/2017 [facility] URINE AND STOOL UA CaOx [place] Occasional /HPF None Seen /HPF 02/07/2017 [facility] URINE AND STOOL UA Leuk Est Negative (02/07/17 1:50 AM) Negative 02/07/2017 [facility] URINE AND STOOL UA RBC <1 0 - 2 02/07/2017 [facility] URINE AND STOOL UA Mucus Few /LPF None Seen /LPF 02/07/2017 [facility] URINE AND STOOL UA WBC 1 0 - 5 02/07/2017 [facility] URINE AND STOOL UA Bili Negative *NA* (02/07/17 1:50 AM) Negative 02/07/2017 [facility] URINE AND STOOL UA Glucose Negative mg/dL Negative mg/dL 02/07/2017 [facility] URINE AND STOOL UA Ketones Negative mg/dL Negative mg/dL 02/07/2017 [facility] URINE AND STOOL UA Blood Negative (02/07/17 1:50 AM) Negative 02/07/2017 [facility] URINE AND STOOL UA Color Yellow *NA* (02/07/17 1:50 AM) Yellow 02/07/2017 [facility] URINE AND STOOL UA Turbidity Clear (02/07/17 1:50 AM) Clear 02/07/2017 [facility] URINE AND STOOL UA Protein 20 mg/dL Negative mg/dL 02/07/2017 [facility] URINE AND STOOL UA Spec Grav 1.024 <=1.030 02/07/2017 [facility] URINE AND STOOL UA pH 6.0 5.0 - 8.0 02/07/2017 [facility] URINE AND STOOL UA Hyal Cast 3 0 - 2 02/07/2017 [facility] URINE AND STOOL UA Sq Epi None Seen 02/07/2017 [facility] URINE AND STOOL UA Urobilinogen <=1.0 mg/dL 0.1 - 1.0 02/07/2017 [facility] URINE CHEM U Sodium 42 02/07/2017 [facility] URINE CHEM U Creatinine 247.00 02/07/2017 [facility] URINE CHEM U Prot/Creat 0.14 02/07/2017 [facility] URINE CHEM U Protein 35.5 02/07/2017 [facility] URINE CHEM U Osmolality 894 300 - 800 02/07/2017 [facility] CHEM PANEL Osmolality 286 280 - 300 02/07/2017 [facility] CHEM PANEL Bili Indirect 0.8 0.0 - 1.0 02/07/2017 [facility] CHEM PANEL Bili Direct 0.2 0.0 - 0.3 02/07/2017 [facility] CHEM PANEL Bili Total 1.0 0.2 - 1.3 02/07/2017 [facility] CHEM PANEL Alk Phos 108 39 - 136 02/07/2017 [facility] CHEM PANEL AST 34 0 - 37 02/07/2017 [facility] CHEM PANEL ALT 66 0 - 65 02/07/2017 [facility] CHEM PANEL Albumin Lvl 2.9 3.5 - 5.0 02/07/2017 [facility] CHEM PANEL Total Protein 5.9 6.4 - 8.4 02/07/2017 [facility] CHEM PANEL A/G Ratio 1.0 0.7 - 1.6 02/07/2017 [facility] CHEM PANEL Globulin 3.0 2.7 - 4.2 02/07/2017 [facility] HEMATOLOGY Lymphocytes 16.4 20.0 - 40.0 02/07/2017 [facility] HEMATOLOGY Monocytes 9.6 2.0 - 12.0 02/07/2017 [facility] HEMATOLOGY Eosinophils 0.4 0.0 - 4.0 02/07/2017 [facility] HEMATOLOGY Basophils 0.6 0.0 - 1.0 02/07/2017 [facility] HEMATOLOGY Segs-Bands # 7.7 1.5 - 8.1 02/07/2017 [facility] HEMATOLOGY Basophils # 0.1 0.0 - 0.2 02/07/2017 [facility] HEMATOLOGY Monocytes # 1.0 0.0 - 0.8 02/07/2017 [facility] HEMATOLOGY Lymphocytes # 1.7 1.0 - 5.5 02/07/2017 [facility] HEMATOLOGY Segs 73.0 45.0 - 75.0 02/07/2017 [facility] HEMATOLOGY Sed Rate 12 0 - 15 02/07/2017 [facility] HEMATOLOGY D-Dimer 1.12 02/07/2017 [facility] HEMATOLOGY WBC 10.5 3.7 - 10.4 02/07/2017 [facility] HEMATOLOGY RBC 4.76 4.70 - 6.10 02/07/2017 [facility] HEMATOLOGY Hgb 14.7 14.0 - 18.0 02/07/2017 [facility] HEMATOLOGY MCH 30.8 27.0 - 31.0 02/07/2017 [facility] HEMATOLOGY RDW 14.7 11.5 - 14.5 02/07/2017 [facility] HEMATOLOGY Platelet 150 133 - 450 02/07/2017 [facility] HEMATOLOGY MCHC 35.0 32.0 - 36.0 02/07/2017 [facility] HEMATOLOGY Hct 41.9 42.0 - 54.0 02/07/2017 [facility] HEMATOLOGY MCV 87.9 80.0 - 94.0 02/07/2017 [facility] HEMATOLOGY MPV 7.2 7.4 - 10.4 02/07/2017 [facility] HEMATOLOGY PTT 28.6 22.9 - 35.8 02/07/2017 [facility] HEMATOLOGY PT 13.7 12.0 - 14.7 02/07/2017 [facility] HEMATOLOGY INR 1.05 0.85 - 1.17 02/07/2017 [facility] LIPIDS CHD Risk 3.64 4.00 - 7.30 02/07/2017 [facility] LIPIDS Trig 159 <=149 mg/dL 02/07/2017 [facility] LIPIDS HDL 33 >=61 mg/dL 02/07/2017 [facility] LIPIDS Chol 120 <=199 mg/dL 02/07/2017 [facility] LIPIDS LDL (Calculated) 55 <=99 mg/dL 02/07/2017 [facility] LIPIDS VLDL 32 02/07/2017 [facility] SPECIAL CHEMISTRY Hgb A1C 7.8 <=5.6 % 02/07/2017 [facility] Pathology Reports No Data Provided for This Section Diagnostic Reports Report Value Date Source Neck soft tissue wo contrast CT Exam: CT neck soft tissue without contrast. INDICATION: Cough. COMPARISON: None. TECHNIQUE: Noncontrast axial imaging of the neck soft tissues is performed. Coronal and sagittal reconstructions are obtained. Discussion: Exam is limited without the use of intravenous contrast. No occlusive masses in the aerodigestive tract are identified. True vocal cords are apposed. No fluid collections in the neck are identified. No lymphadenopathy. Mucosal thickening in the left maxillary sinus. Anterior fusion of C5 and C6 is present. IMPRESSION: Noncontrast exam shows no obstructing lesions in the aerodigestive tract. 02/17/2017 [facility] Brain wo contrast CT EXAM: CT BRAIN WITHOUT CONTRAST DATE: 02/17/2017 2:05 PM [employer] INDICATION: - please assess for possible changes contributing to triggered cough COMPARISON: TECHNIQUE: Routine axial CT images of the brain were obtained IV contrast: None. FINDINGS: The sulci and the ventricles are slightly increased in size. To volume loss. The ellington-white matter differentiation is preserved. No intracranial hemorrhage is seen. No parenchymal lesions are noted. The midline is central without evidence of herniations. The paranasal sinuses, orbits and mastoids are unremarkable. IMPRESSION: Age-related volume loss without evidence of acute intracranial injury. 02/17/2017 [facility] Abdomen/Pelvis wo IV contrast CT EXAM: CT ABDOMEN AND PELVIS WITHOUT CONTRAST DATE: 02/07/2017 at 1611 hours INDICATION: Abdominal fullness - severe cough and right flank pain x 6 weeks ADDITIONAL INFORMATION: None. COMPARISON: None. TECHNIQUE: Volumetric CT acquisition of the abdomen and pelvis without intravenous contrast. Axial, coronal and sagittal reconstructions. IV contrast: None. Enteric contrast: None. DLP: 1970 mGy-cm FINDINGS: Lines, tubes and hardware: None. Lower thorax: Minimal subsegmental atelectasis. Liver: Decreased attenuation in keeping with steatosis. Biliary tree: No intra- or extrahepatic biliary ductal dilation. Gallbladder: Normal. No CT evidence of gallstones. Pancreas: Normal. Spleen: Normal. Adrenals: Normal. Kidneys and ureters: Normal. Bladder: Normal. Reproductive organs: Prostate and seminal vesicles are unremarkable. Gastrointestinal tract: Stomach: Normal. Gastric fundal diverticulum is noted as an anatomic variant. Small bowel: Normal. Colon: Normal. Appendix: Normal. Peritoneum, mesentery and retroperitoneum: No free air, ascites or loculated fluid. Lymph nodes: Normal. Vasculature: * Scattered vascular calcifications. * Phleboliths are noted in the pelvis. Bones: Age-related degenerative changes. Soft tissues: Normal. IMPRESSION: 1. No findings to suggest etiology of r ight flank pain. (No right renal calculi or obstruction.) 2. Hepatic steatosis RECOMMENDATIONS: None. 02/07/2017 [facility] Chest wo contrast CT EXAM: CT CHEST WITHOUT CONTRAST DATE: 02/07/2017 12:54 PM [employer] INDICATION: Coughing - unremitting cough, abnormalities seen on chest xray TECHNIQUE: Volumetric CT acquisition of the chest without contrast. Axial, sagittal and coronal reconstructions. Axial MIP images included. IV contrast: None. DLP: 765 mGy-cm COMPARISON: Chest CT 02/28/2011 DISCUSSION: Lines and Tubes: None. Lower Neck: The visible portions or the lower neck and thyroid are unremarkable. Heart, Mediastinum, and Great Vessels: The heart is normal in size. A trace pericardial effusion is seen. Mild calcification of the left anterior descending and right coronary arteries are noted. The ascending aorta is mildly dilated measuring 3.8 cm at the level of the main pulmonary trunk which measures 3.0 cm. Prominent epicardial fat is seen on both sides of the heart. Lymph Nodes: No hilar, mediastinal, axillary or internal mammary lymphadenopathy. Lungs: Streaky airspace densities in both lower lobes and the right middle lobe are noted, likely representing subsegmental atelectasis. No suspicious pulmonary nodules are identified. Small calcified granulomas are seen in both lower lobes. The central airways are patent. Pleura: No pleural effusion or pneumothorax. Esophagus and Upper abdomen: The visualized upper abdominal structures are better evaluated on the concurrent CT abdomen/pelvis performed on the same day. Bones and Soft Tissues: No aggressive osseous lesion is seen. Anterior flowing osteophytes along the thoracic spine are suggestive of DISH. IMPRESSION: 1. Subsegmental atelectasis in the righ t middle lobe and both lower lobes. 2. Ectatic ascending aorta measuring up to 3.8 cm. 3. Trace pericardial effusion. 02/07/2017 [facility] Chest 2 views DX EXAM: XR CHES T 2 VIEWS DATE: 02/07/2017 7:00 AM [employer] INDICATION: - chronic unrelieved coughing COMPARISON: 06/23/2015 TECHNIQUE: PA and lateral chest radiographs FINDINGS: Lines, tubes and hardware: None. Lungs and pleura: Mild bibasilar atelectasis is seen. Underlying consolidation in the right middle lobe cannot be excluded. No pleural effusion or pneumothorax is identified. Mild pleural thickening is seen along the right lateral hemithorax. Heart and mediastinum: The cardiomediastinal silhouette is enlarged, likely slightly accentuated due to poor inspiration. The aorta is tortuous. Bones: Images of ACDF are seen in the lower cervical spine. IMPRESSION: 1. Right middle lobe opacity, possibly representing atelectasis and/or consolidation. 2. Bibasilar atelectasis. 3. Cardiomegaly. 02/07/2017 [facility] Blood patch VR DATE: 6 INDICATION: cerebrospinal fluid leak from spinal puncture. Post dural puncture headache's COMPARISON: None available. Technique informed consent was attained. Patient was prepped and draped. Secondary to anxiety/apprehension moderate sedation was provided utilizing 100 mcg of fentanyl and 1 mg of Versed. Patient was monitored with pulse oximetry, blood pressure, and electrocardiogram. Local anesthesia was affected with 1% lidocaine without epinephrine administered subcutaneously. A 3.5 inch 22-gauge Touhy needle was advanced by Dr. Barron Hanley under fluoroscopic control into the right dorsal lamina at C7-T1. Using [id number] technique (nonbacteriostatic saline), the dorsal epidural space was entered and epidurogram was performed using 2 mL Omnipaque 300. 8 mL of autologous blood was injected sl owly into dorsal epidural space. Needle was removed and patient tolerated procedure well without immediate complication. Fluoroscopy time was 1 minute 9 seconds and dose was 413.7. FINDINGS: Epidurogram demonstrates cephalad flow to the C2 level and caudad flow to the C7 level. IMPRESSION: 1. C7-T1 interlaminar blood patch was pe rformed as described above. 09/06/2015 [facility] Chest 2 views DX Clinical Elisa cation: cough and chest congestion for 1 week Comparison: March 05, 2015 FINDINGS: PA and lateral chest radiographs were obtained. MEDIASTINUM: The cardiac silhouette is normal in size. The aorta is unremarkable. LUNGS: Lung volumes are maintained. There are no focal infiltrates or effusions. There are no pneumothoraces noted. BONES: The visualized osseous structures are unremarkable. IMPRESSION: No acute infiltrates or effusions. SL: [id number] 06/23/2015 [facility] Chest 2 views DX Name: STEVEN HOUGH : 1955 SEX: M Ordering Physician: Juan Atkinson Chest 2 views : Mar 05, 2015 03:24:00 PM. CLINICAL INDICATION: Six week history of cough Comparison Examination: 01/23/2011 FINDINGS: PA and lateral views of the chest demonstrate normal lung volumes without focal consolidation, edema, pleural effusions or pneumothorax. The heart size and pulmonary vasculature is normal. There is a mildly tortuous calcified and atherosclerotic aorta. There are degenerative changes throughout the thoracic spine. IMPRESSION: No acute cardiopulmonary abnormality. SL: 23 03/05/2015 [facility] Consultation Notes No Data Provided for This Section Discharge Summaries No Data Provided for This Section History and Physicals No Data Provided for This Section Vital Signs Vital Sign Value Date Comments Source Systolic (mm Hg) 136 [facility] Diastolic (mm Hg) 80 02/01/2019 [facility] Heart Rate 71 02/01/2019 [facility] Temperature Oral (F) 98.1 F 02/01/2019 [facility] Height 182.88 cm 02/01/2019 [facility] Weight 127.074 02/01/2019 [facility] BMI Calculated 37.99 02/01/2019 [facility] Weight 131.08 06/22/2018 [facility] BMI Calculated 39.19 06/22/2018 [facility] Height 182.88 cm 06/22/2018 [facility] Systolic (mm Hg) 162 06/22/2018 [facility] Diastolic (mm Hg) 110 06/22/2018 [facility] Temperature Oral (F) 97.8 F 06/22/2018 [facility] Heart Rate 69 06/22/2018 [facility] Temperature Oral (F) 98.3 F 02/18/2017 [facility] Heart Rate 94 02/18/2017 [facility] Systolic (mm Hg) 115 02/18/2017 [facility] Diastolic (mm Hg) 80 02/18/[address] [facility] Respitory Rate 18 02/18/2017 [facility] Heart Rate 93 02/18/[address] [facility] Respitory Rate 18 02/18/[address] [facility] Systolic (mm Hg) 129 02/18/[address] [facility] Diastolic (mm Hg) 89 02/18/2017 [facility] Temperature Oral (F) 98.7 F 02/18/2017 [facility] Systolic (mm Hg) 123 02/18/[address] [facility] Diastolic (mm Hg) 84 02/18/[address] [facility] Respitory Rate 18 02/18/2017 [facility] Heart Rate 90 02/18/2017 [facility] Temperature Oral (F) 99.4 F 02/18/2017 [facility] BMI Calculated 37.37 02/07/2017 [facility] Weight 125 02/07/2017 [facility] Height 182.88 cm 02/07/[address] [facility] Systolic (mm Hg) 127 08/27/2016 [facility] Diastolic (mm Hg) 84 08/27/2016 [facility] Respitory Rate 15 08/27/2016 [facility] Respitory Rate 13 08/27/2016 [facility] Systolic (mm Hg) 121 08/27/2016 [facility] Diastolic (mm Hg) 87 08/27/2016 [facility] Respitory Rate 13 08/27/2016 [facility] Systolic (mm Hg) 127 08/27/2016 [facility] Diastolic (mm Hg) 88 08/27/2016 [facility] Heart Rate 88 08/27/2016 [facility] BMI Calculated 36.29 08/27/2016 [facility] Weight 121.364 08/27/2016 [facility] Height 182.88 cm 08/27/2016 [facility] Systolic (mm Hg) 137 08/15/2016 [facility] Diastolic (mm Hg) 83 08/15/2016 [facility] Respitory Rate 16 08/15/2016 [facility] Respitory Rate 16 08/15/2016 [facility] Systolic (mm Hg) 133 08/15/2016 [facility] Diastolic (mm Hg) 82 08/15/2016 [facility] Systolic (mm Hg) 132 08/15/2016 [facility] Diastolic (mm Hg) 79 08/15/2016 [facility] Respitory Rate 16 08/15/2016 [facility] Heart Rate 76 08/15/2016 [facility] Heart Rate 73 08/15/2016 [facility] Temperature Oral (F) 98.2 F 08/15/2016 [facility] Weight 125.511 08/15/2016 [facility] BMI Calculated 37.53 08/15/2016 [facility] Height 182.88 cm 08/14/2016 [facility] Respitory Rate 18 09/06/2015 [facility] Heart Rate 72 09/06/2015 [facility] Systolic (mm Hg) 141 09/06/2015 [facility] Diastolic (mm Hg) 91 09/06/2015 [facility] Heart Rate 71 09/06/2015 [facility] Respitory Rate 20 09/06/2015 [facility] Systolic (mm Hg) 133 09/06/2015 [facility] Diastolic (mm Hg) 90 09/06/2015 [facility] Respitory Rate 18 09/06/2015 [facility] Heart Rate 76 09/06/2015 [facility] Systolic (mm Hg) 152 09/06/2015 [facility] Diastolic (mm Hg) 97 09/06/2015 [facility] Weight 114.545 09/06/2015 [facility] BMI Calculated 34.25 09/06/2015 [facility] Height 182.88 cm 09/06/2015 [facility] Temperature Oral (F) 97.4 F 09/06/2015 [facility] Encounters Location Location Details Encounter Type Encounter Number Reason For Visit Attending Provider ADM Date DC Date Status Source Outpatient [id number] JACKIE SOLO 09/15/2014 Active [facility] Outpatient [id number] RENAN RK 09/29/2014 Active [facility] Outpatient [id number] DONNIE BOYKIN 10/03/2014 Active [facility] Outpatient [id number] DONNIE BOYKIN 12/18/2014 Active [facility] Outpatient [id number] SANGITA GREWAL 02/10/2015 [facility] Outpatient [id number] DONNIE BOYKIN 02/12/2015 [facility] Outpatient [id number] JUAN ATKINSON 03/05/2015 [facility] Outpatient [id number] JUAN ATKINSON 06/18/2015 [facility] Outpatient [id number] JUAN ATKINSON 06/23/2015 [facility] [id number] Luan Maradiaga 09/06/2015 09/07/2015 [facility] Day Surgery [id number] Barron Hanley 08/15/2016 08/16/2016 [facility] Orthopedic [facility] Spine [facility] Day Surgery [id number] Barron Hanley 08/27/2016 08/28/2016 [facility] Inpatient [id number] Elizabeth Ceja 201602/18/2017 [facility] Outpatient [id number] Randee Tamayo 06/22/2018 [facility] Outpatient [id number] Randee Tamayo 06/22/2018 06/23/2018 [facility] [id number] Randee Tamayo 07/02/2018 [facility]ulatory [facility]Reg [id number] Donnie Boykin 07/02/2018 07/02/2018 [facility] Outpatient [id number] Karen Haines 02/01/2019 [facility] Outpatient [id number] Donnie Boykin 02/01/2019 02/02/2019 [facility] Procedures Procedure Code Date Perfomer Comments Source Injection [id number] 08/15/2016 [facility] Bladder operation<sup>1</sup> [id number] 11/24/2015 Removed growth from bladder [facility] Operation on prostate<sup>2</sup> [id number] 11/24/2015 surgery on prostate- scraped [facility] Back fusion [id number] 09/23/2012 [facility] Vagotomy [id number] 02/23/1993 [facility] Arthroscopy of knee<sup>3</sup> [id number] 11 kness s urgeries between both knees [facility] Carpal tunnel release [id number] [facility] Neck closure [id number] [facility] Vasectomy [id number] [facility] Assessment and Plan Assessment and Plan Date Source Extracted from:Title: Clinical Document Author: Barron Hanley MD Date: 08/27/16 PROCEDURE: Bilateral L4-L5 and L5-S1 transforaminal epidural steroid injection. PREOPERATIVE DIAGNOSIS: Lumbar disk herniation. POSTOPERATIVE DIAGNOSIS: Lumbar disk herniation. CLINICAL HISTORY: Bilateral low back and buttock pain. TECHNIQUE: Informed consent was obtained. The patient was prepped and draped. Secondary to anxiety/apprehension monitored anesthesia care was provided. The patient was monitored with pulse oximetry, blood pressure, and EKG. Local anesthesia was effected with 1% lidocaine without epinephrine administered subcutaneously. Then 25-gauge spinal needles were advanced by Dr. Barron Hanley under fluoroscopic control into both L4-L5 and L5-S1 neural foramina. Then 1 mL of Omnipaque 300 was injected for epineurogram/epidurogram into each neural foramen. This was followed by injection of 1.5 mL of a steroid mixture consisting of 12 mg of Celestone, 2 mL of 2% lidocaine and 2 mL of Omnipaque 300 into each neural foramen. AP and lateral images were obtained and needles were removed. Patient tolerated the procedure well without any complication. Fluoro time was 2 minutes and 17 seconds, and dose was 56.29 mGy. FINDINGS: Epidurogram showed cephalad flow of contrast to L2 and caudad flow of contrast to S2. PAIN EVALUATION: Prior to procedure patient's pain was 3/10 and postprocedure patient's pain was 0/10. IMPRESSION: 1. Right L4-L5 transforaminal epidural s teroid injection was performed. 2. Right L5-S1 transforaminal epidural s teroid injection was performed. 3. Left L4-L5 transforaminal epidural st eroid injection was performed. 4. Left L5-S1 transforaminal epidural st eroid injection was performed. 5. Prior to procedure patient's pain was 3/10 and postprocedure patient's pain was 0/10. Barron Hanley MD Date Dictated: 08/27/2016 Date Transcribed: 08/27/2016 ARTHUR/KAIDEN Extracted from:Title: Clinical Document Author: Barron Hanley MD Date: 08/27/16 History and Physical Update: 1. Required on all H&P's completed prior admission, within last 30 days. 2. Update must be completed post admissi on, within 24 hrs or prior to procedure, whichever comes first. Based on examination of the patient: No change in patient current condition 08/28/2016 [facility] Extracted from:Title: Clinical Document Author: Barron Hanley MD Date: 08/15/16 HISTORY AND PHYSICAL EXAMINATION/REVIEW OF SYSTEMS Present Complaint:_ low back pain Past History: chronic Alcohol Details: Past Details: Past, Last use: 1983. Stopped age 28 Years. Exercise Details: Exercise frequency: 3-4 times/week. Exercise type: Walking, Weight lifting.; Comment(s): 3 hrs each time Tobacco Details: Use: Never smoker. Tobacco smoke exposure: None. Did the Patient Smoke Cigarettes Anytime During the Last 365 Days? No. Cessation Counseling Provided? No. Details: Use: Former smoker. Type: Cigarettes. Started age 5.0 Years. Stopped age 28 Years. Tobacco smoke exposure: Exposed at work. Did the Patient Smoke Cigarettes Anytime During the Last 365 Days? No. Cessation Counseling Provided? No. Details: Use: Former smoker. Tobacco smoke exposure: None. Did the Patient Smoke Cigarettes Anytime During the Last 365 Days? No. Cessation Counseling Provided? No. Details: Use: Former smoker. Tobacco smoke exposure: None. Did the Patient Smoke Cigarettes Anytime During the Last 365 Days? No. Cessation Counseling Provided? No. Details: Use: Former smoker. Type: Cigarettes. Stopped age 28 Years. Tobacco smoke exposure: None. Did the Patient Smoke Cigarettes Anytime During the Last 365 Days? No. Cessation Counseling Provided? No. Substance Abuse Details: Use: None. Details: Use: None. Injection: 08/15/16 Bladder operation: 11/2015 Operation on prostate: 11/2015 Back fusion: 09/23/12 Vagotomy: 02/23/93 Vasectomy Carpal tunnel release Neck closure Heart attack HTN - Hypertension Scalp cyst Asthma Bronchitis Appendicitis Heart disease Arthritis High cholesterol Enlarged prostate Mother: Stroke Father: Cancer.; HTN (hypertension).; Thyroid disease Sister: Cancer of body of uterus.; Ovarian cancer. Brother: Thyroid disease Allergies Allergies (3) Active Reaction Bee Sting None Documented Topamax None Documented topiramate None Documented Home Medications: Home Medications (17) Active [place] Thyroid 30 mg oral tablet 30 mg = 1 tab, PO, Daily Aspirin Enteric Coated 81 mg oral delayed release tablet 81 mg = 1 tab, PO, Daily Benicar HCT 12.5 mg-20 mg oral tablet 1 tab, PO, Daily CeleBREX 200 mg oral capsule 200 mg = 1 cap, PO, Daily clopidogrel 75 mg oral tablet 75 mg = 1 tab, PO, Daily divalproex sodium 125 mg oral enteric coated tablet (Depakote) 250 mg = 2 tab, PO, Bedtime EpiPen Auto-Injector 0.3 mg injectable kit 0.3 mg, IM, ONCE folic acid 0.4 mg oral tablet 0.4 mg = 1 tab, PO, Daily glucosamine , PO, Daily magnesium gluconate 500 mg oral tablet 500 mg = 1 tab, PO, Daily montelukast 10 mg oral tablet 10 mg = 1 tab, PO, Bedtime Kulm 10/325 oral tablet 1-2 tab, PRN, PO, Q4-6H pantoprazole 40 mg oral enteric coated tablet 40 mg = 1 tab, PO, Daily propranolol 40 mg oral tablet See Instructions Robaxin-750 oral tablet 1,500 mg = 2 tab, PO, TID verapamil 40 mg oral tablet 40 mg = 1 tab, PO, BID Vitamin D3 2000 intl units oral capsule 2,000 IntlUnit = 1 cap, PO, Daily Vitals Signs: Vital Signs (last 24 hrs) Last Charted Temp Oral 98.2 DegF (AUG 15:56) Heart Rate Peripheral 76 bpm (AUG 15 09:24) Resp Rate 17 BRMIN (AUG 15:56) SBP 138 mmHg (AUG 15:24) DBP 76 mmHg (AUG 15:24) SpO2 95 % (AUG 15:56) Weight 125.51 kg (AUG 15 07:34) Height 182.88 cm (AUG 14 13:01) BMI 37.53 (AUG 15 07:34) General(_xAlert, Oriented, No Acute Distress):_ Pertinent Lab:___none HEENT (_x no mass or deformity):_ Torso/Breast (_ no mass or deformity):_ deferred Heart (_x normal Rhythm, no murmur or gallop):_ Lungs (_x Clear no auscultation):_ Abdomen (no mass or tenderness):_deferred Pelvic/Rectal (no mass or tenderness):_ deferred Extremities (no edema or tenderness):_ deferred Neurological (_ intact):_ deferreed Impressions: _ Diagnosis: -lumbar disc herniation [id number] Treatment plan:_ bilateral L4-S1 TFESI 08/16/2016 [facility] Plan of Care No Data Provided for This Section Social History Social History Date Source Social History TypeResponse Alcohol Past, Last use: 1983. Stopped age 28 Years. Employment/School Status: Employed. Exercise Exercise frequency: Daily. Exercise type: Walking, Weight lifting.1 Sexual Sexually active: Yes. What is your current gender identity? Choose not to disclose. Substance Abuse Use: None. Smoking Status Former smoker; Type: Cigarettes; Exposure to Tobacco Smoke None; Cigarette Smoking Last 365 Days No; Reg Smoking Cessation Counseling No; Stopped at age: 28; entered on: 02/01/19 13 hrs each time 06/22/2018 [facility] Social History TypeResponse Substance Abuse Use: None. Exercise Exercise frequency: 3-4 times/week. Exercise type: Walking, Weight lifting.1 Alcohol Past, Last use: 1983. Stopped age 28 Years. Smoking Status Former smoker; Type: Cigarettes; Stopped at age: 28; Exposure to Tobacco Smoke None; Cigarette Smoking Last 365 Days No; Reg Smoking Cessation Counseling No 13 hrs each time 06/19/2015 [facility] Social History TypeResponse Substance Abuse Use: None. Exercise Exercise frequency: 3-4 times/week. Exercise type: Walking, Weight lifting.1 Alcohol Past, Last use: 1983. Stopped age 28 Years. Smoking Status Former smoker; Type: Cigarettes; Exposure to Tobacco Smoke None; Cigarette Smoking Last 365 Days No; Reg Smoking Cessation Counseling No; Stopped at age: 28; 13 hrs each time 06/19/2015 [facility] Family History No Data Provided for This Section Advance Directives No Data Provided for This Section Functional Status No Data Provided for This Section
--- OUTSIDE RECORDS SUMMARY | 2019-11-09 13:46 | XMS REPORT | Continuity of Care Document ---
Author Author [facility] Organization [facility] Address [address] [place] [address] Phone Unavailable Care Team Providers Care Commissioned [employer] Officer Name Role Phone Provider, Unknown PCP Unavailable Elvis GÓMEZ, Devi Peña Attphys [phone] Xu Boykin Attphys Jose C Tamayo Attphys Swathi Ceja Attphys [phone] SUSANNE DIAZ Attcaroline Unavailable Yan Maradiaga Attphys Swathi Ceja Admphys [phone] SUSANNE DIAZ Unavailable Payers Payer Name Policy Type Policy Number Effective Date Expiration Date S brandon AETNAAETNA HMO,POS,EPO, [id number] xxxxxxxxxx 2008 00:00:00 Bryce Galvez Problems Condition Name Condition Details Condition Category Status Onset Date Resolution Date Last Treatment Date Treating Clinician Comments Source Gastroparesis Gastroparesis Disease Active 2018-07-20 00:00:00 Bryce Galvez Chronic constipation Chronic constipation Disease Active 00:00:00 Bryce Galvez Gastroesophageal reflux disease Gastroesophageal reflux disease Dis ease Active 2018-07-20 00:00:00 Bryce Galvez PNA PNA Active 02/05/2017 [facility] Diagnosis Active 2017-02-05 00:00:00 2017-02-26 21:56:00 Rick Brandt 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 Active 08/22/2016 Rick Barndt Diagnosis Active 2016-08-22 00:00:00 2016-10-17 18:24:00 [facility] Seizure (finding) Seiz ure (finding) Active 04/23/2016 Problem 02/04/2019 mini siezures- pt did not know he had them [facility] Problem Active 2016-04-23 00:00:00 2019-02-04 01:58:14 Rick Brandt Transient ischemic attack (disorder) Transient ischemic attack (disorder) Active 04/23/2016 Problem 02/04/2019 [facility] Group,[facility], [facility] Problem Active 2016-04-23 00:00:00 2019-02-04 01:58:14 Rick Brandt G97.0 G97. 0 Active 09/04/2015 Rick Brandt Diagnosis Active 2015-09-04 00:00:00 2015-09-06 07:04:00 Rick Brandt Epidermoid cyst of skin of scalp (disorder) Epidermoid cyst of skin of scalp (disorder) Active 08/22/2014 Problem 02/04/2019 Data migrated from [employer] on 08/30/14. [facility] Problem Active 2014-08-22 00:00:00 2019-02-04 01:58:14 [facility] R[place] Allergic rhinitis (disorder) A llergic rhinitis (disorder) Active 08/22/2013 Problem 02/04/2019 Data migrated from [employer] on 07/25/14. [facility] Problem Active 2013-08-22 00:00:00 2019-02-04 01:58:14 [facility] [place] Anxiety disorder (disorder) An xiety disorder (disorder) Active 08/22/2013 Problem 02/04/2019 Data migrated from [employer] on 07/25/14. [facility], [facility] Problem Active 2013-08-22 00:00:00 2019-02-04 01:58:14 [facility] Benign essential hypertension (disorder) Benign essential hypertension (disorder) Active 08/22/2013 Problem 02/04/2019 Data migrated from [employer] on 07/25/14. [facility] Problem Active 2013-08-22 00:00:00 2019-02-04 01:58: 14 [facility] Coronary arteriosclerosis (disorder) Coronary arteriosclerosis (disorder) Active 08/22/2013 Problem 02/04/2019 Data migrated from [employer] on 07/25/14. [facility] Group,[facility], [facility] Problem Active 2013-08-22 00:00:00 2019-02-04 01:58:14 [facility] Gastroesophageal reflux disease (disorder) Gastroesophageal reflux disease (disorder) Active 08/22/2013 Problem 02/04/2019 Data migrated from [employer] on 07/25/14. [facility] Group,[facility], [facility] Problem Active 2013-08-22 00:00:00 2019-02-04 01:58: 14 [facility] Hyperlipidemia (disorder) Hype rlipidemia (disorder) Active 08/22/2013 Problem 02/04/2019 Data migrated from [employer] on 07/25/14. [facility] Group,[facility], [facility] Problem Active 2013-08-22 00:00:00 2019-02-04 01:58:14 [facility] Impaired glucose tolerance (disorder) Impaired glucose tolerance (disorder) Active 08/22/2013 Problem 02/04/2019 Data migrated from [employer] on 07/25/14. [facility] Group,[facility], [facility] Problem Active 2013-08-22 00:00:00 2019-02-04 01:58:14 [facility] Insomnia (disorder) Inso mnia (disorder) Active 08/22/2013 Problem 02/04/2019 Data migrated from [employer] on 07/25/14. Medical Group,[facility] Problem Active 2013-08-22 00:00:00 2019-02-04 01:58:14 [facility] Migraine (disorder) Migr odalys (disorder) Active 08/22/2013 Problem 02/04/2019 Data migrated from [facility] on 07/25/14. Medical Group,[facility], [facility] Problem Active 2013-08-22 00:00:00 2019-02-04 01:58:14 Rick Smithann Appendicitis (disorder) Appe ndicitis (disorder) Resolved Problem 02/04/2019 [facility] Problem Resolved 2019-02-04 01:58:14 [facility] Arthritis (disorder) Arth ritis (disorder) Resolved Problem 02/04/2019 [facility] Problem Resolved 2019-02-04 01:58:14 [facility] Asthma (disorder) Asth ma (disorder) Resolved Problem 02/04/2019 [facility] Problem Resolved 2019-02-04 01:58:14 Ermias Brandt Bronchitis (disorder) Bron chitis (disorder) Resolved Problem 02/04/2019 [facility], [facility] Problem Resolved 2019-02-04 01:58:14 [facility] Heart disease (disorder) Hear t disease (disorder) Resolved Problem 02/04/2019 [facility] Problem Resolved 2019-02-04 01:58:14 Rick Brandt Hypercholesterolemia (disorder) Hypercholesterolemia (disorder) Resolved Problem 02/04/2019 [facility] Problem Resolved 2019-02-04 01:58:14 Rick Brandt Hypertensive disorder, systemic arterial (disorder) Hypertensive disorder, systemic arterial (disorder) Resolved Problem 02/04/2019 Medical Group,[facility], [facility] Problem Resolved 2019-02-04 01:58:14 Memfloyd Brandt Large prostate (finding) Larg e prostate (finding) Resolved Problem 02/04/2019 [facility] Problem Resolved 2019-02-04 01:58:14 Rick Brandt Cyst of scalp (disorder) Cyst of scalp (disorder) Resolved Problem 02/04/2019 [facility], [facility] Problem Resolved 2019-02-04 01:58:14 Rick Brandt Herniated structure (morphologic abnormality) Herniated structure (morphologic abnormality) Resolved Problem 09/09/2015 [facility] Problem Resolved 2015-09-09 02:17:48 Jozef Brandt History of - pneumonia (context-dependent category) History of - pneumonia (context-dependent category) Active Problem 02/04/2019 Medical Group Problem Active 2019-02-04 01:58:14 Rick Brandt Hypothyroidism (disorder) Hypo thyroidism (disorder) Active Problem 02/04/2019 [facility] Group,[facility], [facility] Problem Active 2019-02-04 01:58:14 Rick Brandt Obesity (disorder) Obes ity (disorder) Active Problem 02/04/2019 [facility], [facility] Problem Active 2019-02-04 01:58:14 Ermias Brandt Osteoarthritis (disorder) Oste oarthritis (disorder) Active Problem 02/04/2019 [facility] Problem Active 2019-02-04 01:58:14 Rick Brandt 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 Problem 02/04/2019 [facility] Group Problem Active 2019-02-04 01:58:14 Rick Brandt Viral upper respiratory tract infection (disorder) Viral upper respiratory tract infection (disorder) Active Problem 02/04/2019 [facility] Problem Active 2019-02-04 01:58:14 [facility] [place] PNEUMONIA IN DISEASES CLASSIFIED ELSEWHE PNEUMONIA IN DISEASES CLASSIFIED ELSEWHE Active [facility] Diagnosis Active 2017-02-26 21:56:00 Rick Brandt History of Past Illness Condition Name Condition Details Condition Category Status Onset Date Resolution Date Last Treatment Date Treating Clinician Comments Source Myocardial infarction (disorder) Myocardial infarction (disorder) Resolved 08/24/2007 Problem 02/04/2019 [facility] Problem Resolved 2007-08-24 00:00:00 20 10-02-13 01:58:14 2019-02-04 01:58:14 Rick galvez Allergies, Adverse Reactions, Alerts Allergy Name Allergy Type Status Severity Reaction(s) Onset Date Inacti ve Date Treating Clinician Comments Source Pentazocine Propensity to adverse reactions to drug Active 2018-07-20 00:00:00 nausea [facility] topiramate DA Active SV 2017-10-29 00:00:00 [facility] coconut DA Active SV 2017-10-29 00:00:00 [facility] pentazocine DA Active SV 2017-09-02 00:00:00 [facility] topiramate DA Active SV 2017-09-02 00:00:00 [facility] coconut DA Active SV 2017-09-02 00:00:00 [facility] Topiramate Propensity to adverse reactions to drug Active 2015-11-13 00:00:00 Bryce salas Bee Sting Bee Sting Active Severe Barrie rial R[facility]ki Topamax Topamax Active Rick Brandt Family History Family Member Diagnosis Comments Start Date Stop Date Source Paternal aunt Cancer Bryce barba Social History Social Habit Start Date Stop Date Quantity Comments Source Sex Assigned At Lon rivera Leonor Alcohol intake 2017-11-26 00:00:00 2017-11-26 00:00:00 Current non-drinker of alcohol (finding) Bryce Galvez Social History 2015-06-19 01:40:32 2015-06-19 01:40:32 Rick Brandt Smoking Status Start Date Stop Date Source Never smoker Bryce salas Medications Ordered Medication Name Filled Medication Name Start Date Stop Da te Current Medication? Ordering Clinician Indication Dosage Frequency Signature (SIG) Comments Components Source Linzess 72 mcg capsule 2019-08-04 00:00:00 Yes TAKE 1 CAPSULE BY MOUTH EVERY DAY BEFORE BREAKFAST Bryce Galvez cetirizine 10 mg oral tablet 2019-02-01 16:54:00 Yes 10 mg = 1 tab, PO, Daily, # 30 tab, 0 Refill(s), Pharmacy: [id number] Rick Brandt Codeine Phosphate 0.5 MG/ML / Guaifenesin 15 MG/ML Oral Solu tion 2019-02-01 16:54:00 Yes 10 mL, PO, Q4H, PRN for cough , # 200 mL, 0 Refill(s) Rick Brandt zinc 50 mg tablet 2018-07-20 08:52:07 Yes Ta ke by mouth. Bryce Galvez potassium 99 mg tablet 2018-07-20 08:52:07 Yes 120{tbl} Take 120 tablets by mouth. Bryce Galvez magnesium 250 mg tablet 2018-07-20 08:52:07 Yes 500{tbl} Take 500 tablets by mouth. Bryce Galvez verapamil (CALAN) 120 MG tablet 2018-07-20 08:52:06 Yes 120mg Q.5D Take 120 mg by mouth 2 (two) times a day. Lon Galvez divalproex (DEPAKOTE) 500 MG EC tablet 2018-07-20 08:52:06 Yes 500mg Q.[id number] Take 500 mg by mouth 3 (three) times a day. Bryce Galvez cholecalciferol, vitamin D3, (VITAMIN D3) 5,000 unit tablet 2018-07-20 08:52:06 Yes 19150{tbl} Take 10,000 tablets by [facility]. Bryce Galvez folic acid (FOLVITE) 400 MCG tablet 2018-07-20 08:48:47 Yes 400ug Take 400 mcg by mouth. Bryce Galvez ezetimibe-simvastatin (VYTORIN) 10-10 mg per tablet 07-20 08:48:47 Yes 1{tbl} QD Take 1 tablet by mouth nightly. Bryce Galvez linaclotide (LINZESS) 72 mcg capsule 2018-07-20 00:00: 00 2019-08-04 00:00:00 No 72ug QD Take 1 capsule (72 mcg total) by mouth daily before breakfast. Bryce Galvez Levofloxacin 500 MG Oral Tablet [Levaquin] 2018-06-22 16:07:08 Yes 500 mg = 1 tab, PO, Q24H, X 10 day, # 10 tab, 0 Refill(s), Pharmacy: [facility]/pharmacy #[id number] [facility] Rikki 200 ACTUAT Albuterol 0.09 MG/ACTUAT Metered Dose Inhaler [Pr oAir HFA] 2018-06-22 16:07:08 Yes 2 puff, INHALER, Q4H, PRN for wheezing, # 8.5 gm, 0 Refill(s), Pharmacy: [facility]/pharmacy #[id number] [facility] Levofloxacin 500 MG Oral Tablet [Levaquin] 2018-06-22 15:55:00 No 500 mg = 1 tab, PO, Q24H, X 10 day, # 10 tab, 0 Refill(s), Pharmacy: [facility] Codeine Phosphate 2 MG/ML / Guaifenesin 20 MG/ML Oral Soluti on 2018-06-22 15:55:00 Yes 10 mL, PO, Q4H, PRN for cough, X 7 day, # 180 mL, 0 Refill(s) Rick Brandt 200 ACTUAT Albuterol 0.09 MG/ACTUAT Metered Dose Inhaler [Pr oAir HFA] 2018-06-22 15:55:00 No 2 puff, INHALER, Q4H, PRN for wheezing, # 8.5 gm, 0 Refill(s), Pharmacy: [facility] [place] Metoclopramide 10 MG Oral Tablet 2018-06-22 15:41:00 Yes 10 mg = 1 tab, PO, Daily, # 360 tab, 0 Refill(s) [facility] R[facility] SUMAtriptan 100 mg oral tablet 2018-06-22 15:41:00 Yes 100 mg = 1 tab, PO, Daily, PRN for migraine headache, # 18 tab, 0 Refill(s) Rick Brandt folic acid 0.8 mg oral tablet 2018-06-22 15:41:00 Yes 0.8 mg = 1 tab, PO, Daily, 0 Refill(s) Rick [facility] galvez pantoprazole 40 mg oral enteric coated tablet 2018-06-22 15:41:0 0 Yes 40 mg = 1 tab, PO, Daily, # 90 tab, 0 Refill(s) [facility] [place] Vitamin D3 10,000 intl units oral capsule 2018-06-22 15:41:00 Yes 10,000 IntlUnit = 1 cap, PO, 0 Refill(s) Rick Brandt Hydrochlorothiazide 12.5 MG / Olmesartan medoxomil 20 MG Ora l Tablet 2018-06-22 15:41:00 Yes 1 tab, PO, Daily, # 90 tab, 0 Refill(s) [facility] ezetimibe 10 MG Oral Tablet [Zetia] 2018-06-22 15:41:00 Yes 10 mg = 1 tab, PO, Daily, # 90 tab, 0 Refill(s) [facility] gabapentin 100 MG Oral Capsule 2017-02-18 20:43:00 Yes 100 mg = 1 cap, PO, Q8H, Please send all requests for new Rx or refills to the patient's co chairman or gill net stringer, not to Dr. Ceja, # 90 cap, 0 Refill(s) [facility] Furosemide 40 MG Oral Tablet 2017-02-18 20:43:00 Yes 40 mg = 1 tab, PO, BID, Please send all requests for new Rx or refills to the patient's co chairman or gill net stringer, not to Dr. Ceja, # 60 tab, 0 Refill(s) Rick Smithann cetirizine 10 mg oral tablet 2017-02-18 20:43:00 Yes 10 mg = 1 tab, PO, Bedtime, Please send all requests for new Rx or refills to the patient's co chairman or gill net stringer, not to Dr. Ceja, # 30 tab, 0 Refill(s) Rick Rikki verapamil 120 mg oral capsule, extended release 2017-02-18 20:43 :00 Yes 120 mg = 1 tab, PO, Daily, d o not crush or chew Please send all requests for new Rx or refills to the patient's co chairman or gill net stringer, not to Dr. Ceja, # 30 tab, 0 Refill(s) Rick Brandt SUMAtriptan 50 mg oral tablet 2017-02-18 20:43:00 Yes 50 mg = 1 tab, PO, Q2H, PRN Headache 4-6, 0 Refill(s) Rick [place] potassium chloride 20 mEq oral tablet, extended release 2017-02-18 20:43:00 Yes 40 mEq = 2 tab, PO, BID, do not crush or chew Follow your Potassium level with your pumper gauger apprentice. Please send all requests for new Rx or refills to the patient's co chairman or gill net stringer, not to Dr. Ceja, # 120 tab, 0 Refill(s) Rick Brandt Sumatriptan 2017-02-13 22:13:00 No Notes: ( Same As: Imitrex) Rick Brandt gabapentin 100 MG Oral Capsule 2017-02-12 22:00:00 No Notes: (Same as: Neurontin) Rick Brandt Furosemide 40 MG Oral Tablet 2017-02-11 15:00:00 No 40 mg, 1 tab, Route: PO, Drug form: TAB, BID, Dosing Weight 125, kg, Start date: 02/11/17 9:00:00 ASSOCIATE PRODUCER, Duration: 30 day, Stop date: 03/12/17 17:00:00 ASSOCIATE PRODUCER Rick Brandt [place] Thyroid 2017-02-11 15:00:00 No Notes: (Same As: Antwan Thyroid, S-P-T) [facility] Verapamil 2017-02-11 15:00:00 No 120 mg, 1 tab, Route: PO, Drug form: ERTAB, Daily, Dosing Weight 125, kg, Start date: 02/11/17 9:00:00 ASSOCIATE PRODUCER, Duration: 30 day, Stop date: 03/12/17 9:00:00 ASSOCIATE PRODUCER [facility] 24 HR Divalproex Sodium 500 MG Extended Release Tablet 2017-02-11 15:00:00 No Notes: (Same as : Depakote ER) Once daily dosing; indicated for migraines. Divalproex sodium extended-release tab. Do not chew or crush. "Do Not Crush" [facility] Sodium Chloride 0.9% (Bolus) IV 2017-02-11 05:04:00 No 250 mL, 250 ml/hr, Infuse Over: 1 hr, Route: IV, 250, Drug form: INJ, ONCE, Priority: STAT, Dosing Weight 125 kg, Start date: 02/10/17 23:04:00 ASSOCIATE PRODUCER, Stop date: 02/10/17 23:04:00 [facility] Crestor 2017-02-11 04:00:00 No Notes: (Same As: Mckenna) [facility] cetirizine 2017-02-11 03:00:00 No Notes: (S hilary As: Dyan) [facility] rosuvastatin 2017-02-11 03:00:00 No Notes: Same as Mckenna [facility] Loratadine 2017-02-11 03:00:00 No 10 mg, Route: PO, Bedtime, Dosing Weight 125, kg, Start date: 02/10/17 21:00:00 ASSOCIATE PRODUCER, Duration: 30 day, Stop date: 03/11/17 21:00:00 ASSOCIATE PRODUCER [facility] Sodium Chloride 0.9% (Bolus) IV 2017-02-11 02:11:00 No 500 mL, 250 ml/hr, Infuse Over: 2 hr, Route: IV, 500, Drug form: INJ, ONCE, Priority: STAT, Dosing Weight 125 kg, Start date: 02/10/17 20:11:00 ASSOCIATE PRODUCER, Stop date: 02/10/17 20:11:00 ASSOCIATE PRODUCER [facility] Pulmicort Respules 2017-02-10 23:32:00 No Notes: (Same As: Pulmicort) [facility] Sumatriptan 2017-02-10 23:06:00 No Notes: ( Same As: Imitrex) [facility] Potassium Chloride 2017-02-10 23:00:00 No Notes: (Same as: K-Dur 20) "Do Not Crush" With food and full glass of water [facility] SUMAtriptan 50 mg oral tablet 2017-02-10 22:59:00 No 50 mg = 1 tab, PO, ONCE, PRN Headache 1-3, 0 Refill(s) [facility] Verapamil 2017-02-10 22:59:00 No 120 mg, PO , Daily, 0 Refill(s) [facility] 24 HR Divalproex Sodium 500 MG Extended Release Tablet 2017-02-10 22:59:00 Yes 500 mg = 1 tab, PO, Daily, 0 Refill(s) [facility] rosuvastatin 40 mg oral tablet 2017-02-10 22:59:00 Yes 40 mg = 1 tab, PO, Bedtime, 0 Refill(s) [facility] heparin sodium, porcine 2500 UNT/ML Injectable Solution 2017-02-10 03:00:00 No Notes: porcine heparin [facility] NS (Bolus) IV 2017-02-09 23:28:00 No 250 mL, 250 ml/hr, Infuse Over: 1 hr, Route: IV, 250, Drug form: INJ, ONCE, Priority: STAT, Dosing Weight 125 kg, Start date: 02/09/17 17:28:00 ASSOCIATE PRODUCER, Stop date: 02/09/17 17:28:00 ASSOCIATE PRODUCER [facility] Potassium Chloride 2017-02-09 23:00:00 No Notes: (Same as: K-Dur 20) "Do Not Crush" With food and full glass of water [facility] Sodium Chloride 0.9% (Bolus) IV 2017-02-09 22:17:00 No 250 mL, 250 ml/hr, Infuse Over: 1 hr, Route: IV, 250, Drug form: INJ, ONCE, Dosing Weight 125 kg, Start date: 02/09/17 16:17:00 ASSOCIATE PRODUCER, Stop date: 02/09/17 16:17:00 ASSOCIATE PRODUCER [facility] verapamil 120 mg oral tablet 2017-02-09 17:24:00 No 120 mg = 1 tab, PO, Daily, 0 Refill(s) [facility] [place] divalproex sodium 125 mg oral enteric coated tablet (Depakot e) 2017-02-09 17:24:00 No 125 mg = 1 tab, PO, Daily, 0 Refill(s) Rick Brandt thyroid (RETIREMENT) 60 MG Oral Tablet [[place] Thyroid] 2017-02-09 17:24:00 Yes 60 mg = 1 tab, PO, Daily, # 30 tab, 1 Refill(s) [facility] R[place] Potassium Chloride 2017-02-09 15:00:00 No Notes: (Same as: K-Dur 20) "Do Not Crush" With food and full glass of water [facility] R[place] Codeine Phosphate 10 MG / Guaifenesin 300 MG Oral Tablet 2017-02-09 05:57:00 No Notes: (Same As: Robitussin AC) [facility] [place] Furosemide 2017-02-08 23:00:00 No Notes: (Same as: Lasix) MEDICATION WASTE Product Size: 40 mg Product Wasted: ___ mg [facility] R[place] montelukast 2017-02-08 03:00:00 No Notes: ( Same as:Lizethir) [facility] divalproex sodium 125 mg oral enteric coated tablet (Depakot e) 2017-02-08 03:00:00 No Notes: (Sa me as: Depakote Delayed Release) Do not confuse with the extended-release tablet. Delayed absorption, enteric coated tablet. Do not crush [facility] Furosemide 20 MG Oral Tablet 2017-02-07 23:00:00 No Notes: (Same as: Lasix) May cause GI upset. Give with food or milk. [facility] pantoprazole 2017-02-07 22:30:00 No Notes: Tablet should not be chewed or crushed. (Same as: Protonix) [facility] Verapamil 2017-02-07 15:00:00 No Notes: (Same As: Daniel Sutton) "Avoid grapefruit and grapefruit juice" [facility] [place] Thyroid 2017-02-07 15:00:00 No Notes: (Same As: [place]tw[place] Thyroid, S-P-T) [facility] Hydrochlorothiazide 12.5 MG / Olmesartan medoxomil 20 MG Oral Tablet [Benicar HCT 20/12.5] 2017-02-07 15:00:00 No 1 tab, Route: PO, Drug Form: TAB, Dosing Weight 121.364, kg, Daily, Start date: 02/07/17 9:00:00 ASSOCIATE PRODUCER, Duration: 30 day, Stop date: 03/08/17 9:00:00 ASSOCIATE PRODUCER [facility] Microzide 2017-02-07 15:00:00 No Notes: (Same as: Microzide) With food. [facility] Folic Acid 2017-02-07 15:00:00 No 0.4 mg, 1 tab, Route: PO, Drug form: TAB, Daily, Dosing Weight 121.364, kg, Start date: 02/07/17 9:00:00 ASSOCIATE PRODUCER, Duration: 30 day, Stop date: 03/08/17 9:00:00 ASSOCIATE PRODUCER [facility] clopidogrel 2017-02-07 15:00:00 No Notes: ( Same As: Plavix) [facility] Vitamin D3 2017-02-07 15:00:00 No Notes: Sa me as: Vitamin D3 [facility] Aspirin Enteric Coated 2017-02-07 15:00:00 No Notes: Do not crush or chew. (Same As: Ecotrin) [facility] Benicar 2017-02-07 15:00:00 No 20 mg, 1 tab, Route: PO, Drug form: TAB, Daily, Start date: 02/07/17 9:00:00 ASSOCIATE PRODUCER, Duration: 30 day, Stop date: 03/08/17 9:00:00 [facility] influenza virus vaccine, inactivated 2017-02-07 15:00:00 Ye s Notes: (Same as: Fluzone Quadrivalent, Fluarix Quadrivalent) For 3 years of age and older (0.5 mL IM) Shake well before use [facility] Docusate 2017-02-07 15:00:00 No Notes: (Same as: Colace) (Do Not Crush) [facility] Albuterol 0.833 MG/ML / Ipratropium Brom kathy 0.167 MG/ML Inhalant Solution [DuoNeb] 2017-02-07 06:00:00 No Notes: (S hilary as: Duoneb) [facility] Dextromethorphan Hydrobromide 10 MG / Guaifenesin 200 MG Ora l Capsule 2017-02-07 03:02:00 No Notes: (dextromethorphan-guaifenesin 10- 100mg/5ml 10 ml oral SOLN ud) (Same as: Robitussin DM) Rick Brandt Ondansetron 2017-02-07 03:02:00 No Notes: (Same as: Zofran) MEDICATION WASTE Product Size: 4 mg Product Wasted: ___ mg Rick Brandt Acetaminophen 325 MG / Hydrocodone Bitartrate 5 MG Oral Tabl et 2017-02-07 03:02:00 No Notes: (Sa me as: Brule 325/5) Do not exceed 4gm/day of acetaminophen. Rick Brandt Acetaminophen 2017-02-07 03:02:00 No Notes: Do not exceed 4 gm/day. (Same as: Tylenol) Rick Brandt Docusate 2017-02-05 23:00:00 No 100 mg, Route: PO, Drug form: CAP, BID, Dosing Weight 121.364, kg, Start date: 02/05/17 17:00:00 ASSOCIATE PRODUCER, Duration: 30 day, Stop date: 03/07/17 9:00:00 ASSOCIATE PRODUCER [facility] laura Brandt Dextromethorphan Hydrobromide 10 MG / Guaifenesin 200 MG Ora l Capsule 2017-02-05 21:14:00 No 1 cap, Route: PO, Drug Form: CAP, Dosing Weight 121.364, kg, Q4H, PRN Cough, Start date: 02/05/17 15:14:00 ASSOCIATE PRODUCER, Duration: 30 day, Stop date: 03/07/17 15:13:00 [facility]OCIATE PRODUCER [facility] Ondansetron 2017-02-05 21:14:00 No 4 mg, Route: IVP, Q6H, Dosing Weight 121.364, kg, PRN Nausea & Vomiting, Start date: 02/05/17 15:14:00 ASSOCIATE PRODUCER, Duration: 30 day, Stop date: 03/07/17 15:13:00 ASSOCIATE PRODUCER Rick Brandt Acetaminophen 325 MG / Hydrocodone Bitartrate 5 MG Oral Tabl et 2017-02-05 21:14:00 No 1 tab, Rou te: PO, Drug Form: TAB, Dosing Weight 121.364, kg, Q4H, PRN Pain Score 4-6, Start date: 02/05/17 15:14:00 ASSOCIATE PRODUCER, Duration: 30 day, Stop date: 03/07/17 15:13:00 ASSOCIATE PRODUCER [facility] Acetaminophen 2017-02-05 21:14:00 No 100.4 F, Start date: 02/05/17 15:14:00 ASSOCIATE PRODUCER, Duration: 30 day, Stop date: 03/07/17 15:13:00 ASSOCIATE PRODUCER [facility] Albuterol 0.833 MG/ML / Ipratropium Brom kathy 0.167 MG/ML Inhalant Solution [DuoNeb] 2017-02-05 21:14:00 No 3 ml, Route: NEB, Drug Form: SOLN, Dosing Weight 121.364, kg, PRN, PRN Respiratory Protocol, Start date: 02/05/17 15:14:00 ASSOCIATE PRODUCER, Duration: 30 day, Stop date: 03/07/17 15:13:00 ASSOCIATE PRODUCER [facility] Hydromorphone 2016-08-27 18:45:00 No Notes: Same as Dildaniid [facility] Robaxin 2016-08-27 18:44:00 No Notes: (Same as:Robaxin) [facility] Robaxin 2016-08-27 18:37:00 No Notes: (Same as:Robaxin) [facility] Dilaudid 2016-08-27 17:59:00 No Notes: [facility] Lactated Ringers 1,000 mL 2016-08-27 17:23:00 No 1,000 mL, Rate: 125 ml/hr, Infuse over: 8 hr, Route: IV, Dosing Weight 121.364 kg, Total Volume: 1,000, Start date: 08/27/16 12:23:00 CDT, Duration: 30 day, Stop date: 09/26/16 12:22:00 CDT [facility] Promethazine 2016-08-27 17:23:00 No Notes: Do not give IV push. (Same as: Phenergan) [facility] Hydromorphone 2016-08-27 17:23:00 No Notes: Same as Dilbob [facility] Acetaminophen 325 MG / Hydrocodone Bitartrate 10 MG Oral Tab let 2016-08-27 17:23:00 No Notes: Do not exceed 4gm/day of acetaminophen. (Same as: Brule 325/10) Rick Brandt Ondansetron 2016-08-27 17:23:00 No Notes: (Same as: Zofran) MEDICATION WASTE Product Size: 4 mg Product Wasted: ___ mg Rick Brandt Lactated Ringers 1,000 mL 2016-08-27 15:37:00 No 1,000 mL, Rate: 125 ml/hr, Infuse over: 8 hr, Route: IV, Dosing Weight 125.511 kg, Total Volume: 1,000, Start date: 08/27/16 10:37:00 CDT, Duration: 30 day, Stop date: 09/26/16 10:36:00 CDT [facility] [place] Hydromorphone 2016-08-15 15:45:00 No Notes: Same as Dilaudid Rick Brandt Acetaminophen 325 MG / Hydrocodone Bitartrate 10 MG Oral Tab let 2016-08-15 15:45:00 No Notes: Do not exceed 4gm/day of acetaminophen. (Same as: Brule 325/10) [facility] [place] Ondansetron 2016-08-15 15:45:00 No Notes: (Same as: Roseannefran) MEDICATION WASTE Product Size: 4 mg Product Wasted: ___ mg Rick Brandt Promethazine 2016-08-15 15:45:00 No Notes: Do not give IV push. (Same as: Phenergan) Rick Brandt Lactated Ringers 1,000 mL 2016-08-15 15:45:00 No 1,000 mL, Rate: 125 ml/hr, Infuse over: 8 hr, Route: IV, Dosing Weight 125.511 kg, Total Volume: 1,000, Start date: 08/15/16 10:45:00 CDT, Duration: 30 day, Stop date: 09/14/16 10:44:00 CDT [facility] [place] Lactated Ringers 1,000 mL 2016-08-15 14:29:00 No 1,000 mL, Rate: 125 ml/hr, Infuse over: 8 hr, Route: IV, Dosing Weight 125.511 kg, Total Volume: 1,000, Start date: 08/15/16 9:29:00 CDT, Duration: 30 day, Stop date: 09/14/16 9:28:00 CDT Rick Brandt celecoxib 200 MG Oral Capsule [Celebrex] 2016-08-14 18:20:00 Yes 200 mg = 1 cap, PO, Daily, # 30 cap, 0 Refill(s) Rick Brandt Methocarbamol 750 MG Oral Tablet [Robaxin] 2016-08-14 18:20:00 Yes 1,500 mg = 2 tab, PO, TID, # 42 tab, 0 Refill(s) Rick Brandt verapamil 40 mg oral tablet 2016-08-14 18:19:00 Yes 40 mg = 1 tab, PO, BID, # 90 tab, 0 Refill(s) Rick Brandt Acetaminophen 325 MG / Hydrocodone Bitartrate 10 MG Or al Tablet [Brule 10/325] 2016-08-14 18:19:00 Yes 1-2 tab, PO, Q4-6H, PRN Pain, # 30 tab, 0 Refill(s) Rick Brandt Divalproex Sodium 125 MG Enteric Coated Tablet 2016-08-14 18:18: 00 Yes 250 mg = 2 tab, PO, Bedtime, # 90 tab, 0 Refill(s) Rick Brandt aspirin (ECOTRIN) 81 MG enteric coated tablet 2015-11-13 13:52:5 5 Yes 81mg Take 81 mg by mouth. Bryce Galvez BENICAR HCT 20-12.5 mg per tablet 2015-11-09 00:00:00 Yes Bryce Galvez ARMOUR THYROID 30 mg tablet 2015-11-08 00:00:00 Yes Bryce Galvez pantoprazole (PROTONIX) 40 MG EC tablet 2015-11-08 00:00:00 Ye john Galvez montelukast (SINGULAIR) 10 mg tablet 2015-10-30 00:00:00 Hany lopez 10mg QD Take 10 mg by mouth once daily. Bryce Galvez phentermine (ADIPEX-P) 37.5 mg tablet 2015-10-17 00:00:00 Y es TAKE 1 TABLET BY MOUTH EVERY DAY IN THE MORNING Bryce Galvez midazolam 2015-09-06 14:45:00 No Notes: (Same as: Versed) MEDICATION WASTE Product Size: 2 mg Product Wasted: ___ mg Rick Brandt Sublimaze 2015-09-06 14:44:00 No Notes: (Same as: Sublimaze) Preservative free. Rick Brandt SUMAtriptan (IMITREX) 50 MG tablet 2015-08-09 00:00:00 Yes TAKE 1 TAB BY MOUTH ONCE, NEEDED HEADACHE,INSTR:MAY REPEAT ONE TIME AFTER 2 HOURS Bryce Galvez Vital Signs Vital Name Observation Time Observation Value Comments Source Systolic (mm Hg) 2019-02-01 16:29:00 [facility] [place] Diastolic (mm Hg) 2019-02-01 16:29:00 [facility] [place] Heart Rate 2019-02-01 16:29:00 [facility] [place] Temperature Oral (F) 2019-02-01 16:29:00 98.1 F [facility] [place] Height 2019-02-01 16:29:00 182.88 cm [facility] [place] Weight 2019-02-01 16:29:00 [facility] [place] BMI Calculated 2019-02-01 16:29:00 [facility] [place] Weight 2018-06-22 15:37:00 [facility] [place] BMI Calculated 2018-06-22 15:37:00 Jozefori al [place] Height 2018-06-22 15:37:00 182.88 cm [facility] [place] Systolic (mm Hg) 2018-06-22 15:37:00 [facility] [place] Diastolic (mm Hg) 2018-06-22 15:37:00 [facility] [place] Temperature Oral (F) 2018-06-22 15:37:00 97.8 F [facility] [place] Heart Rate 2018-06-22 15:37:00 [facility] [place] Temperature Oral (F) 2017-02-18 21:53:00 98.3 F [facility] [place] Heart Rate 2017-02-18 21:53:00 [facility] [place] Systolic (mm Hg) 2017-02-18 21:53:00 Barrie [facility] [place] Diastolic (mm Hg) 2017-02-18 21:53:00 [facility] [place] Respitory Rate 2017-02-18 21:53:00 [facility] [place] Heart Rate 2017-02-18 17:40:00 [facility] [place] Respitory Rate 2017-02-18 17:40:00 [facility] [place] Systolic (mm Hg) 2017-02-18 17:40:00 [facility] [place] Diastolic (mm Hg) 2017-02-18 17:40:00 [facility] [place] Temperature Oral (F) 2017-02-18 17:40:00 98.7 F [facility] [place] Systolic (mm Hg) 2017-02-18 13:40:00 Barrie [facility] [place] Diastolic (mm Hg) 2017-02-18 13:40:00 [facility] [place] Respitory Rate 2017-02-18 13:40:00 [facility] [place] Heart Rate 2017-02-18 13:40:00 [facility] [place] Temperature Oral (F) 2017-02-18 13:40:00 99.4 F [facility] BMI Calculated 2017-02-07 03:32:00 [facility] [place] Weight 2017-02-07 03:32:00 [facility] [place] Height 2017-02-07 03:32:00 182.88 cm [facility] [place] Systolic (mm Hg) 2016-08-27 19:45:00 Barrie [facility] [place] Diastolic (mm Hg) 2016-08-27 19:45:00 [facility] [place] Respitory Rate 2016-08-27 19:45:00 [facility] [place] Respitory Rate 2016-08-27 19:26:00 [facility] [place] Systolic (mm Hg) 2016-08-27 19:26:00 Barrie [facility] [place] Diastolic (mm Hg) 2016-08-27 19:26:00 [facility] [place] Respitory Rate 2016-08-27 19:14:00 [facility] [place] Systolic (mm Hg) 2016-08-27 19:14:00 [facility] [place] Diastolic (mm Hg) 2016-08-27 19:14:00 [facility] [place] Heart Rate 2016-08-27 15:49:00 [facility] [place] BMI Calculated 2016-08-27 15:45:00 [facility] [place] Weight 2016-08-27 15:45:00 [facility] [place] Height 2016-08-27 15:45:00 182.88 cm [facility] [place] Systolic (mm Hg) 2016-08-15 16:15:00 [facility] [place] Diastolic (mm Hg) 2016-08-15 16:15:00 [facility] [place] Respitory Rate 2016-08-15 16:15:00 [facility] [place] Respitory Rate 2016-08-15 16:00:00 [facility] [place] Systolic (mm Hg) 2016-08-15 16:00:00 Barrie [facility] [place] Diastolic (mm Hg) 2016-08-15 16:00:00 [facility] [place] Systolic (mm Hg) 2016-08-15 15:45:00 [facility] [place] Diastolic (mm Hg) 2016-08-15 15:45:00 [facility] [place] Respitory Rate 2016-08-15 15:45:00 [facility] [place] Heart Rate 2016-08-15 14:24:00 [facility] [place] Heart Rate 2016-08-15 12:56:00 [facility] [place] Temperature Oral (F) 2016-08-15 12:56:00 98.2 F [facility] [place] Weight 2016-08-15 12:34:00 [facility] [place] BMI Calculated 2016-08-15 12:34:00 [facility] [place] Height 2016-08-14 18:01:00 182.88 cm [facility] Respitory Rate 2015-09-06 16:55:00 [facility] [place] Heart Rate 2015-09-06 16:55:00 [facility] [place] Systolic (mm Hg) 2015-09-06 16:55:00 Barrie [facility] [place] Diastolic (mm Hg) 2015-09-06 16:55:00 [facility] [place] Heart Rate 2015-09-06 16:00:00 [facility] [place] Respitory Rate 2015-09-06 16:00:00 [facility] [place] Systolic (mm Hg) 2015-09-06 16:00:00 [facility] [place] Diastolic (mm Hg) 2015-09-06 16:00:00 [facility] [place] Respitory Rate 2015-09-06 14:55:00 [facility] [place] Heart Rate 2015-09-06 14:55:00 [facility] [place] Systolic (mm Hg) 2015-09-06 14:55:00 [facility] [place] Diastolic (mm Hg) 2015-09-06 14:55:00 [facility] [place] Weight 2015-09-06 14:14:00 [facility] [place] BMI Calculated 2015-09-06 14:14:00 [facility] [place] Height 2015-09-06 14:14:00 182.88 cm [facility] [place] Temperature Oral (F) 2015-09-06 14:00:00 97.4 F [facility] Procedures Procedure Date / Time Performed Performing Clinician Sourc e Injection 2016-08-15 05:00:00 [facility] Bladder operation<sup>1</sup> 2015-11-24 00:00:00 [facility] Operation on prostate<sup>2</sup> 2015-11-24 00:00:00 [facility] [place] Back fusion 2012-09-23 05:00:00 [facility] Her galvez Vagotomy 1993-02-23 06:00:00 [facility] Her galvez Arthroscopy of knee<sup>3</sup> [facility] Carpal tunnel release [facility] ermann Neck closure [facility] Vasectomy [facility] Plan of Care Planned Activity Planned Date Details Comments Source Future Scheduled Test 2019-10-25 00:00:00 INFLUENZA VACCINE [code = INFLUENZA VACCINE] [facility] Scheduled Test 2005-07-18 00:00:00 COLONOSCOPY SCREEN ING [code = COLONOSCOPY SCREENING] [facility] Scheduled Test 2005-07-18 00:00:00 SHINGLES VACCINES (#1) [code = SHINGLES VACCINES (#1)] [facility] Future Scheduled Test 1965-07-18 00:00:00 DIABETIC FOOT EXAM [code = DIABETIC FOOT EXAM] [facility] Scheduled Test 1965-07-18 00:00:00 URINE MICROALBUMIN [code = URINE MICROALBUMIN] [facility] Future Scheduled Test 1955 00:00:00 DIABETIC RETINAL E YE EXAM [code = DIABETIC RETINAL EYE EXAM] [facility] Encounters Start Date/Time End Date/Time Encounter Type Admission Type [facility] Care Department Encounter ID Source 2019-02-01 10:40:00 2019-02-01 23:59:59 Outpatient Neema Sen [facility] [id number] 2018-07-02 08:30:00 2018-07-02 08:30:00 Outpatient Nelson Tamayo [facility] [id number] 2018-06-22 10:30:00 2018-06-22 23:59:59 Outpatient Nelson Tamayo [facility] [id number] 2017-02-06 21:02:00 2017-02-18 17:15:00 Outpatient Elizabeth Lowry [facility] [id number] 2016-08-27 09:39:00 2016-08-27 23:59:00 Outpatient Susanne Diaz [facility] [id number] 2016-08-15 07:07:00 2016-08-15 23:59:00 Outpatient Susanne Diaz [facility] [id number] 2016-08-06 12:53:00 2016-08-06 14:50:00 Outpatient C SUSANNE DIAZ [facility] [id number] [facility] 2015-09-06 06:47:00 2015-09-06 23:59:00 Outpatient Sonia maggijose antonio Luan Swan [facility] [id number] Results Test Description Test Time Test Comments Results Result Comments Source MOLECULAR DIAGNOSTIC 2017-02-16 11:04:00 <2.8 [facility] [place] MOLECULAR DIAGNOSTIC 2017-02-16 11:04:00 Not Detected ( 5:04 AM) [facility] CHEM PANEL 2017-02-15 09:28:00 3.6 [facility] [place] CHEM PANEL 2017-02-15 09:28:00 2.2 [facility] [place] CHEM PANEL 2017-02-15 09:28:00 71 [facility] [place] CHEM PANEL 2017-02-15 09:28:00 8.5 [facility] [place] CHEM PANEL 2017-02-15 09:28:00 13.1 [facility] [place] CHEM PANEL 2017-02-15 09:28:00 30 [facility] [place] CHEM PANEL 2017-02-15 09:28:00 98 [facility] [place] CHEM PANEL 2017-02-15 09:28:00 4.1 [facility] [place] CHEM PANEL 2017-02-15 09:28:00 137 [facility] [place] CHEM PANEL 2017-02-15 09:28:00 1.11 [facility] [place] CHEM PANEL 2017-02-15 09:28:00 94 [facility] [place] CHEM PANEL 2017-02-15 09:28:00 15 [facility] [place] IMMUNOLOGY 2017-02-15 09:28:00 0.8 [facility] [place] IMMUNOLOGY 2017-02-15 09:28:00 Reactive *ABN*(02/15/17 3:2 8 AM) [facility] [place] IMMUNOLOGY 2017-02-15 09:28:00 1.4 [facility] [place] IMMUNOLOGY 2017-02-15 09:28:00 >8.0 [facility] [place] IMMUNOLOGY 2017-02-15 09:28:00 >8.0 [facility] [place] CHEM PANEL 2017-02-14 12:33:00 3.0 [facility] [place] CHEM PANEL 2017-02-14 12:33:00 2.1 [facility] [place] ELECTROLYTES 2017-02-14 12:33:00 138 [facility] [place] ELECTROLYTES 2017-02-14 12:33:00 1.02 [facility] [place] ELECTROLYTES 2017-02-14 12:33:00 29 [facility] [place] ELECTROLYTES 2017-02-14 12:33:00 13.1 [facility] [place] ELECTROLYTES 2017-02-14 12:33:00 8.4 [facility] [place] ELECTROLYTES 2017-02-14 12:33:00 79 [facility] [place] ELECTROLYTES 2017-02-14 12:33:00 100 [facility] [place] ELECTROLYTES 2017-02-14 12:33:00 4.1 [facility] [place] ELECTROLYTES 2017-02-14 12:33:00 13 [facility] [place] ELECTROLYTES 2017-02-14 12:33:00 93 [facility] [place] CHEM PANEL 2017-02-13 10:52:00 3.0 [facility] [place] CHEM PANEL 2017-02-13 10:52:00 69 [facility] [place] CHEM PANEL 2017-02-13 10:52:00 8.3 [facility] [place] CHEM PANEL 2017-02-13 10:52:00 28 [facility] [place] CHEM PANEL 2017-02-13 10:52:00 100 [facility] [place] CHEM PANEL 2017-02-13 10:52:00 4.2 [facility] [place] CHEM PANEL 2017-02-13 10:52:00 12.2 [facility] [place] CHEM PANEL 2017-02-13 10:52:00 102 [facility] [place] CHEM PANEL 2017-02-13 10:52:00 13 [facility] [place] CHEM PANEL 2017-02-13 10:52:00 136 [facility] [place] CHEM PANEL 2017-02-13 10:52:00 1.14 [facility] [place] CHEM PANEL 2017-02-13 10:52:00 2.1 [facility] [place] URINE CHEM 2017-02-13 00:22:00 2680 [facility] [place] URINE CHEM 2017-02-13 00:22:00 2680 [facility] [place] URINE CHEM 2017-02-13 00:22:00 2203 [facility] [place] URINE CHEM 2017-02-13 00:22:00 82.2 [facility] URINE CHEM 2017-02-13 00:22:00 2.5 [facility] [place] URINE CHEM 2017-02-13 00:22:00 6.7 [facility] [place] URINE CHEM 2017-02-13 00:22:00 485 [facility] [place] URINE CHEM 2017-02-13 00:22:00 142 [facility] [place] URINE CHEM 2017-02-13 00:22:00 181 [facility] [place] URINE CHEM 2017-02-13 00:22:00 53 [facility] [place] URINE CHEM 2017-02-13 00:22:00 2680 [facility] [place] URINE CHEM 2017-02-13 00:22:00 2680 [facility] [place] URINE CHEM 2017-02-13 00:22:00 82.2 [facility] [place] URINE CHEM 2017-02-13 00:22:00 2203 [facility] [place] URINE CHEM 2017-02-13 00:22:00 9 [facility] [place] URINE CHEM 2017-02-13 00:22:00 24 [facility] [place] CHEM PANEL 2017-02-11 20:43:00 5.7 [facility] [place] ENDOCRINOLOGY 2017-02-11 20:43:00 13.4 Ok morial [place] ENDOCRINOLOGY 2017-02-11 20:43:00 19.5 Ok [facility] [place] ENDOCRINOLOGY 2017-02-11 20:43:00 84 [facility] [place] ENDOCRINOLOGY 2017-02-11 20:43:00 14 [facility] [place] ENDOCRINOLOGY 2017-02-11 20:43:00 19.586 Ok morial [place] SPECIAL CHEMISTRY 2017-02-11 20:43:00 14 [facility] [place] URINE CHEM 2017-02-11 20:43:00 113 [facility] [place] URINE CHEM 2017-02-11 20:43:00 <0.15 [facility] [place] URINE CHEM 2017-02-11 20:43:00 <5.0 [facility] [place] URINE CHEM 2017-02-11 20:43:00 151 [facility] [place] URINE CHEM 2017-02-11 20:43:00 33.90 [facility] [place] URINE CHEM 2017-02-11 20:43:00 403 [facility] [place] URINE CHEM 2017-02-11 20:43:00 37.9 [facility] [place] CARDIAC ENZYMES 2017-02-11 09:30:00 12 [facility] [place] CHEM PANEL 2017-02-11 09:30:00 0.5 [facility] [place] CHEM PANEL 2017-02-11 09:30:00 <0.1 [facility] [place] CHEM PANEL 2017-02-11 09:30:00 0.8 [facility] [place] CHEM PANEL 2017-02-11 09:30:00 49 [facility] [place] CHEM PANEL 2017-02-11 09:30:00 98 [facility] [place] CHEM PANEL 2017-02-11 09:30:00 25 [facility] [place] CHEM PANEL 2017-02-11 09:30:00 6.0 [facility] [place] CHEM PANEL 2017-02-11 09:30:00 2.6 [facility] [place] CHEM PANEL 2017-02-11 09:30:00 3.4 [facility] [place] HEMATOLOGY 2017-02-11 09:30:00 89.0 [facility] [place] HEMATOLOGY 2017-02-11 09:30:00 206 [facility] [place] HEMATOLOGY 2017-02-11 09:30:00 7.8 [facility] [place] HEMATOLOGY 2017-02-11 09:30:00 Test Item MCH (test code = MCH) 30.4 pg 27.0-31.0 [facility] BweizccUFLDVWJEXW9247-51-47 09:30:0015.2[facility]ann[facility]MATOLOGY 2017-02-11 09:30:0034.2[facility] YxqbyeeMMDMHQREMS5879-25-76 09:30:0037.4[facility] LgltmcuFETEYQGESU1188-61-49 09:30:004.20[facility] ZctdlztQTYDJPQIAN9193-43-28 09:30:009.3[facility] CjvkpxwLWHESVLGSE7275-19-18 09:30:0012.8[facility] [place] OQLSFGCIRN5115-47-84 09:30:0067.6[facility] MnpcoreGTZDLXNBBQ5505-94-22 09:30:00 22.6[facility] SjcaphzWFSNCDDCQM0496-35-90 09:30:007.8[facility]annHEMATOLOGY 2017-02-11 09:30:001.2[facility] BhezqlaIKTBSNKQWN1623-54-58 09:30:000.1[facility] GefpaeoWXELZYTEBF5207-36-28 09:30:000.8[facility] IkoeakxAVWXSWJSFH6896-86-53 09:30:006.3[facility] LjmiozmPKFPGXJHXH2543-23-82 09:30:002.1[facility] ZMIQYMHNAB6658-90-02 09:30:000.7[facility] OrfbdjiVGRQVVEBGI3244-78-37 09:30:000.1 [facility] VacbwacKRQSPLNGPQ4830-78-10 10:03:000.1[facility] HermannHEMATOLOGY 2017-02-08 10:03:001.0[facility] DyeyuyfRLJLULCQLA8797-98-13 10:03:002.2[facility] UuwadmfWRWNYLGLFI3442-77-77 10:03:007.2[facility] ElvfmflNXGFBJXULJ4077-48-87 10:03:000.1[facility] AgfawrjTUPYDEKOUS7339-11-97 10:03:0021.2[facility] [place] CPQODWRCIS8016-18-97 10:03:000.6[facility] ImaxpsvYTIIEYPHBD6001-62-50 10:03:009.4 [facility] PqtcqtkZGMKYAOCNT6668-24-05 10:03:0068.1[facility]annHEMATOLOGY 2017-02-08 10:03:000.7[facility] XfeijmxPCYURFYYJH8722-29-81 10:03:14658Ltpdxpba PpmdjctLGCYDTDJBJ8169-12-80 10:03:007.8[facility] PzkhkqlYXNGEKCFTP0144-33-93 10:03:0015.5[facility] LoyqnxyRNPXUDSWFC4318-17-16 10:03:0034.9[facility] [place] KSKWESJFRM1226-74-77 10:03:00* Test Item Value Reference Range Interpretation Comments MCH (test code = MCH) 30.8 pg 27.0-31.0 [facility] OnqqtpsNBKQEZBFHV9318-84-62 10:03:0038.2[facility]annHEMATOLOGY 2017-02-08 10:03:004.34[facility] YqpcnbmTJBJPQSEOI1852-21-45 10:03:0088.1[facility] KciuqsxEMUKXMHRFS7666-35-96 10:03:0013.3[facility] PlkzsisWMJYROEXAJ5682-12-58 10:03:0010.5[facility] HermannURINE AND FGAAZ8993-85-17 07:50:00Negative (02/07/17 1:50 AM)[facility] FYWDT6101-90-37 07:50:00Negative (02/07/17 1:50 AM)[facility] LQKZM8552-40-89 07:50:00<1[facility] URINE AND AEJGB7494-40-05 07:50:001[facility]ann[facility] AND JEQWG0920-34-22 07:50:00Negative *NA*(02/07/17 1:50 AM)[facility] YAJVJ9621-98-80 07:50:00Negative (02/07/17 1:50 AM)[facility] HEWXP9130-05-22 07:50:00Yellow *NA*(02/07/17 1:50 AM)[facility] AHTGJ3981-26-58 07:50:00Clear (02/07/17 1:50 AM)[facility] YRPGB9470-32-99 07:50:001.024[facility] XBOPH8201-54-46 07:50:006.0[facility] AND IVDLA6687-04-44 07:50:003[facility]ann[facility] EXTI8050-62-23 07:50:0042[facility]ann[facility] AEZY3051-87-21 07:50:40243.00[facility] URINE SOWX2161-12-36 07:50:000.14[facility]annURINE FQDH7558-13-80 07:50:00 35.5[facility]ann[facility] TJNU6489-88-51 07:50:95486Rkcjvtsg HermannCHEM PANEL 2017-02-07 04:04:96350Fgdlrvbt HermannCHEM ESOVV6712-13-28 04:04:000.8[facility] HermannCHEM GHEQS3049-33-29 04:04:000.2[facility] HermannCHEM EFDLK6691-54-73 04:04:001.0[facility] HermannCHEM AMVVR7001-06-38 04:04:78387Xdrpidcl HermannCHEM VFRWN5863-82-20 04:04:0034[facility] HermannCHEM DNSIT7695-87-36 04:04:0066 [facility] HermannCHEM LRNAF0048-28-71 04:04:002.9[facility] HermannCHEM PANEL 2017-02-07 04:04:005.9[facility] HermannCHEM IYLWK1023-78-56 04:04:001.0[facility] HermannCHEM ZSVES7128-28-28 04:04:003.0[facility] NqwcpwoRKTCSYJQDW2426-47-23 04:04:0016.4[facility] YhrqlzuKBYFALVIRB5169-47-97 04:04:009.6[facility] R[facility]ki NCNGQEETLK8573-96-25 04:04:000.4[facility] ShjgnhcEEEKRTGRPX0444-86-93 04:04:000.6 [facility] OapdefxDBSKOQMAHQ7973-62-85 04:04:007.7[facility] HermannHEMATOLOGY 2017-02-07 04:04:000.1[facility] VzgwdfzYKHBIBIUIV6726-86-34 04:04:001.0[facility] MbhuwcgDYKNGOSSBG5375-89-03 04:04:001.7[facility] BwygknjSRGNDHWZIM1587-22-55 04:04:0073.0[facility] ZqrsfvwAOVQQDZPKR4517-19-36 04:04:0012[facility] WZVSHHRMTB2362-49-04 04:04:001.12[facility] PwodpwcPDIBOTZZEO3992-23-03 04:04:00 10.5[facility] FzbjvceSBGWSJBDOQ1909-23-55 04:04:004.76[facility] HermannHEMATOLOGY 2017-02-07 04:04:0014.7[facility] QsvcrszLJVWZAUQBA2025-55-64 04:04:00* Test Item Value Reference Range Interpretation Comments MCH (test code = MCH) 30.8 pg 27.0-31.0 [facility] OlmmhpeVUOLLKTZUZ9539-81-62 04:04:0014.7[facility] HermannHEMATOLOGY 2017-02-07 04:04:52724Xmghmhpt JulbrzcTYVSYBJYFF0218-91-87 04:04:0035.0[facility] OrvaukeSWSEOXVEXQ0558-87-32 04:04:0041.9[facility] BskihnlYQLIEPVLSZ8804-95-34 04:04:0087.9[facility] KmootmgDKXEDHSOAF8470-30-80 04:04:007.2[facility] R[facility] VOBQMAEDLJ8644-71-57 04:04:00* Test Item Value Reference Range Interpretation Comments PTT (test code = PTT) 28.6 s 22.9-35.8 [facility] LxgbmowGBMVVLYOSY4306-51-64 04:04:00* Test Item Value Reference Range Interpretation Comments PT (test code = PT) 13.7 s 12.0-14.7 [facility] NmnlqjmPEBEYZJWHB4102-81-87 04:04:001.05[facility] HermannLIPIDS 2017-02-07 04:04:003.64[facility] MyxifxrFQQEVO4421-10-43 04:04:88557Nqljjejw ZvofxpuWOYVPY9574-42-01 04:04:0033[facility] VymnjkaTSPEGM0859-21-51 04:04:06479 [facility] VcjfpdkKRNWSV9749-31-77 04:04:0055[facility] DecwkzmHZVDNV0985-00-12 04:04:0032[facility] HermannSPECIAL TBEMNEUBT6510-48-69 04:04:007.8[facility] HermannMRI BRAIN WO/WCLINICAL INDICATION: R51 HeadacheMODALITY: Hitachi Bensley 1.2 Leonela High Field Open MRITECHNIQUE: Multiplanar SE, FSE and inversion recovery pulse sequences of the brain were performed without contrast enhancement. Diffusion weighted imaging was utilized. IV contrast, 10 ml gadolinium are injected IV and post-contrast T1 axial and coronal images obtained.IMPRESSION:There are no acute intracranial abnormalities prior to or following contrast administration.FINDINGS:COMPARISON: noneThere are no significant white matter lesions in the posterior fossa. In the supratentorial brain there are a few scattered subcentimeter foci of T2 and FLAIR increased signal intensity, somewhat nonspecific. Findings are most likely related to minimal microvascular white matter ischemic change. These findings can also be related to chronic headache.There are no acute infarcts or hemorrhages. There is no acute restriction on diffusion sequences.There are no intracranial or extra-axial masses. There is no hydrocephalous.Sella and parasellar structures are normal. Central skull base is intact. The craniocervical junction is normal without mass or Chiari malformation.The brainstem, midbrain and cerebellum are normal. Bilateral internal auditory canals are normal and symmetric.Normal flow voids are seen intracranially in carotid and vertebrobasilar arteries. The dural venous sinuses are patent.The calvarium is intact.Extracranial soft ti ssues are unremarkable.There is no pathologic intracranial enhancement.
[2019-11-09] MEDS ORDERED: CEFTRIAXONE SOD 1 GM/NS 50 ML 50 ML IV ONE (14:00)
--- NOTE | 2019-11-09 14:13 | NUR ---
MD ordered ABX prior to blood cultures and lactic. 1st abx admin prior to obtaining blood cultures. aware.
--- NOTE | 2019-11-09 14:16 | Emergency Department Note ---
History of Present Illnes History of Present Illness Chief Complaint: Respiratory History of Present Illness This is a 64 year old male Chief Complaint Comment pt states he was r ecently positive for covid in september and he was sent by his md to come to er due to maybe having pneumonia. pt endorses dizziness, sob, cough. Historian: Patient Arrival Mode: Car [employer] Operator Required: No Onset (how long ago): week(s) (3) Location: Chest Quality: Cough Radiation: Reports non-radiation Severity: moderate Onset quality: gradual Duration (how long): week(s) Timing of current episode: constant Progression: worsening Chronicity: new Context: Reports recent illness; Denies recent surgery Relieving factors: none Exacerbating factors: none Associated symptoms: Reports denies other symptoms Treatments prior to arrival: none Past Medical/Family History Physician Review I have reviewed the patient's past medical and family history. Any updates have been documented here. Past Medical History Recent Fever: Yes Clinical Suspicion of Infectio: No New/Unexplained Change in Ment: No Review of Systems Review of Systems Constitutional: Reports as per HPI EENTM: Reports no symptoms Cardiovascular: Reports no symptoms Respiratory: Reports as per HPI, Reports chest congestion, Reports cough Gastrointestinal: Reports no symptoms Genitourinary: Reports no symptoms Musculoskeletal: Reports no symptoms Integumentary: Reports no symptoms Neurological: Reports no symptoms Psychological: Reports no symptoms Endocrine: Reports no symptoms Hematological/Lymphatic: Reports no symptoms Physical Exam Related Data Allergies: Coded Allergies: No Known Allergies (Unverified , 06/07/10) Triage Vital Signs Vital Signs Date Time Temp Pulse Resp B/P (MAP) Pulse Ox O2 Delivery O2 Flow Rate FiO2 11/09/19 14:08 99.0 92 26 108/72 99 Room Air Vital signs reviewed: Yes Physical Exam CONSTITUTIONAL Constitutional: Present well-developed, Present well-nourished HENT HENT: Present normocephalic, Present atraumatic, Present oropharynx clear/moist, Present nose normal HENT L/R: Present left ext ear normal, Present right ext ear normal EYES Eyes: Reports PERRL, Reports conjunctivae normal NECK Neck: Present ROM normal PULMONARY Pulmonary: Present effort normal, Present breath sounds normal CARDIOVASCULAR Cardiovascular: Present regular rhythm, Present heart sounds normal, Present capillary refill normal, Present normal rate GASTROINTESTINAL Abdominal: Present soft, Present nontender, Present bowel sounds normal GENITOURINARY Genitourinary: Present exam deferred SKIN Skin: Present warm, Present dry MUSCULOSKELETAL Musculoskeletal: Present ROM normal NEUROLOGICAL Neurological: Present alert, Present oriented x 3, Present no gross motor or sensory deficits PSYCHOLOGICAL Psychological: Present mood/affect normal, Present judgement normal Assessment & Plan Medical Decision Making MDM 64 y.o M presents for cough, fever, chest congestion. He is recently tested for coronavirus and is positive about 3 weeks ago. His symptoms improve and then worsened. He is sent to the emergency department by Dr. Juarez for concerns over bacterial pneumonia. Patient was discussed with Dr. Parmar who has agreed to admit for pneumonia. Do not suspect sepsis at this time. Reassessment Reassessment time: 14:15 Reassessment Well appearing, NAD Assessment & Plan Final Impression: (1) Pneumonia Depart Disposition: ADMITTED Last Vital Signs Date Time Temp Pulse Resp B/P (MAP) Pulse Ox O2 Delivery O2 Flow Rate FiO2 11/09/19 14:08 99.0 92 26 108/72 99 Room Air Medications in the ED Ceftriaxone Sodium 50 ml @ 100 mls/hr ONCE ONCE IV Last administered on 11/09/19at 14:11; Admin Dose 100 MLS/HR; Start 11/09/19 at 14:00; Stop 11/09/19 at 14:29 Azithromycin 250 ml @ 200 mls/hr ONCE ONCE IV ; Start 11/09/19 at 14:30; Stop 11/09/19 at 15:44 DREW DIAZ MD Nov 09, 2019 14:15
--- OUTSIDE RECORDS SUMMARY | 2019-11-09 14:19 | XMS REPORT | Continuity of Care Document ---
Author Author [facility] [employer]ikki Information STEVEN [employer] Information Exchange Address Unknown Phone Unavailable Care Team Providers Care Engineering Mgr Name Role Phone [facility] [employer] Unavailable Un available Problems Problem Status Onset Date Classification Date Reported Comments Source PNA Active 1 04/08/2016 [facility] PROLAPSED LUMBAR INTERVERTEBRAL DISC Active 08/22/2016 [facility] Seizure (finding) Active 04/23/2016 Problem 02/04/2019 mini siezures- pt did not know he had t hem [facility] Transient ischemic attack (disorder) Active 04/23/2016 Problem 02/04/2019 [facility] G97.0 Active 09/04/2015 [facility] Epidermoid cyst of skin of scalp (disorder) Active 08/22/2014 Problem 02/04/2019 Data migrated from [employer] on 08/30/14. [facility] Allergic rhinitis (disorder) A ctive 08/22/2013 Problem 02/04/2019 Data migrated from [employer] on . [facility] Anxiety disorder (disorder) Ac tive 08/22/2013 Problem 02/04/2019 Data migrated from [employer] on . [facility] Benign essential hypertension (disorder) Active 08/22/2013 Problem 02/04/2019 Data migrated from [employer] on 07/25/14. [facility] Coronary arteriosclerosis (disorder) Active 08/22/2013 Problem 02/04/2019 Data migrated from [employer] on . [facility] Gastroesophageal reflux disease (disorder) Active 08/22/2013 Problem 02/04/2019 Data migrated from [employer] on 07/25/14. [facility] Hyperlipidemia (disorder) Acti ve 08/22/2013 Problem 02/04/2019 Data migrated from [employer] on . [facility] Impaired glucose tolerance (disorder) Active 08/22/2013 Problem 02/04/2019 Data migrated from [employer] on . [facility] Insomnia (disorder) Active 08/22/2013 Problem 02/04/2019 Data migrated from [employer] on . [facility] Migraine (disorder) Active 08/22/2013 Problem 02/04/2019 Data migrated from [employer] on . [facility] Myocardial infarction (disorder) Resolved 08/24/2007 Problem 02/04/2019 [facility] Appendicitis (disorder) Resolv ed Problem [facility] Arthritis (disorder) Resolved Problem 02/04/2019 [facility] Asthma (disorder) Resolved Problem 02/04/2019 [facility] Bronchitis (disorder) Resolved Problem 02/04/2019 [facility] History of - pneumonia (context-dependent category) Active Problem 02/04/2019 [facility] Heart disease (disorder) Resol denise Problem [facility] Hypercholesterolemia (disorder) Resolved Problem [facility] Hypertensive disorder, systemic arterial (disorder) Resolved Problem 02/04/2019 [facility] Hypothyroidism (disorder) Acti ve Problem [facility] Obesity (disorder) Active Problem 02/04/2019 [facility] Osteoarthritis (disorder) Acti ve Problem [facility] Large prostate (finding) Resol denise Problem [facility] Cyst of scalp (disorder) Resol denise Problem [facility] Herniated structure (morphologic abnormality) Resolved Problem 09/09/2015 [facility] Abnormal gastric motility (finding) Active Problem [facility] Viral upper respiratory tract infection (disorder) Active Problem 02/04/2019 [facility] PNEUMONIA IN DISEASES CLASSIFIED ELSEWHE Active [facility] Medications Medication Details Route Status Patient Instructions Ordering Provider Order Date Source cetirizine 10 mg oral tablet 1 0 mg = 1 tab, PO, Daily, # 30 tab, 0 Refill(s), Pharmacy: [id number] Active 02/01/2019 [facility] Codeine Phosphate 0.5 MG/ML / Guaifenesi n 15 MG/ML Oral Solution 10 mL, PO, Q4H, PRN for cough, # 200 mL, 0 Refill(s) Active 02/01/2019 [facility] Levofloxacin 500 MG Oral Tablet [Levaquin] 500 mg = 1 tab, PO, Q24H, X 10 day, # 10 tab, 0 Refill(s), Pharmacy: [facility]/pharmacy #[id number] Active 06/22/2018 [facility] 200 ACTUAT [...] # 180 mL, 0 Refill(s) Active 06/22/2018 [facility] 200 ACTUAT Albuterol 0.09 MG/ACTUAT Mete [...] new Rx or refills to the patient's primary substance abuse counselor or train operator, not to Dr. Ceja, # 90 cap, 0 Refill(s) Active 02/18/2017 [facility] Furosemide 40 MG Oral Tablet 4 0 mg = 1 tab, PO, BID, Please send all requests for new Rx or refills to the patient's primary substance abuse counselor or train operator, not to Dr. Ceja, # 60 tab, 0 Refill(s) Active 02/18/2017 [facility] cetirizine 10 mg oral tablet 1 0 mg = 1 tab, PO, Bedtime, Please send all requests for new Rx or refills to the patient's primary substance abuse counselor or train operator, not to Dr. Ceja, # 30 tab, 0 Refill(s) Active 02/18/2017 [facility] verapamil 120 mg oral capsule, extended release 120 mg = 1 tab, PO, Daily, do not crush or chew Please send all requests for new Rx or refills to the patient's primary substance abuse counselor or train operator, not to Dr. Jonh Pool, # 30 tab, 0 Refill(s) Active 02/18/2017 [facility] nter SUMAtriptan 50 mg oral tablet 50 mg = 1 tab, PO, Q2H, PRN Headache 4-6, 0 Refill(s) Active 02/18/2017 [facility] nter potassium chloride 20 mEq oral tablet, extended releas e 40 mEq = 2 tab, PO, BID, do not crush or chew Follow your Potassium level with your instruments sales representative. Please send all requests for new Rx or refills to the patient's primary substance abuse counselor or train operator, not to Dr. Ceja, # 120 tab, 0 Refill(s) Active 02/18/2017 [facility] Sumatriptan Notes: (Same As: I mitrex) No Longer Active 02/13/2017 [facility] gabapentin 100 MG Oral Capsule Notes: (Same as: Neurontin) No Longer Active 02/12/2017 [facility] Furosemide 40 MG Oral Tablet 4 0 mg, 1 tab, Route: PO, Drug form: TAB, BID, Dosing Weight 125, kg, Start date: 02/11/17 9:00:00 REGISTERED N[facility]SE [facility]GICAL [facility], Duration: 30 day, Stop date: 03/12/17 17:00:00 REGISTERED NURSE SURGICAL SERVICES No Longer Active 02/11/2017 [facility] Antwan Thyroid Notes: (Same As : Antwan Thyroid, S-P-T) No Longer Active 02/11/2017 [facility] Verapamil 120 mg, 1 tab, Route : PO, Drug form: ERTAB, Daily, Dosing Weight 125, kg, Start date: 02/11/17 9:00:00 REGISTERED NURSE SURGICAL SERVICES, Duration: 30 day, Stop date: 03/12/17 9:00:00 REGISTERED NURSE SURGICAL SERVICES No Longer Active 02/11/2017 [facility] nter 24 HR Divalproex Sodium 500 MG Extended Release Tablet Notes: (Same as: Depakote ER) Once daily dosing; indicated for migraines. Divalproex sodium extended-release tab. Do not chew or crush. "Do Not Crush" No Longer Active 02/11/2017 [facility] Sodium Chloride 0.9% (Bolus) IV 250 mL, 250 ml/hr, Infuse Over: 1 hr, Route: IV, 250, Drug form: INJ, ONCE, Priority: STAT, Dosing Weight 125 kg, Start date: 02/10/17 23:04:00 REGISTERED NURSE SURGICAL SERVICES, Stop date: 02/10/17 23:04:00 REGISTERED NURSE SURGICAL SERVICES Inactive 02/11/2017 [facility] Crestor Notes: (Same As: Crest or) No Longer Active 02/11/2017 [facility] cetirizine Notes: (Same As: Nigel rtec) No Longer Active 02/11/2017 [facility] rosuvastatin Notes: Same as Cr estor Inactive 02/11/2017 [facility] Loratadine 10 mg, Route: PO, B edtime, Dosing Weight 125, kg, Start date: 02/10/17 21:00:00 REGISTERED NURSE SURGICAL SERVICES, Duration: 30 day, Stop date: 03/11/17 21:00:00 REGISTERED NURSE SURGICAL SERVICES Inactive 02/11/2017 [facility] Sodium Chloride 0.9% (Bolus) IV 500 mL, 250 ml/hr, Infuse Over: 2 hr, Route: IV, 500, Drug form: INJ, ONCE, Priority: STAT, Dosing Weight 125 kg, Start date: 02/10/17 20:11:00 REGISTERED NURSE SURGICAL SERVICES, Stop date: 02/10/17 20:11:00 REGISTERED NURSE SURGICAL SERVICES Inactive 02/11/2017 [facility] Pulmicort Respules Notes: ([facility] e As: Pulmicort) No Longer Active 02/10/2017 [facility] Sumatriptan Notes: (Same As: I mitrex) No Longer Active 02/10/2017 [facility] Potassium Chloride Notes: ([facility] e as: K-Dur 20) "Do Not Crush" With food and full glass of water No Longer Active 02/10/2017 [facility] nter SUMAtriptan 50 mg oral tablet 50 mg = 1 tab, PO, ONCE, PRN Headache 1-3, 0 Refill(s) No Longer Active 02/10/2017 [facility] nter Verapamil 120 mg, PO, Daily, 0 Refill(s) No Longer Active 02/10/2017 [facility] 24 HR Divalproex Sodium 500 MG Extended Release Tablet 500 mg = 1 tab, PO, Daily, 0 Refill(s) Active 02/10/2017 [facility] nter rosuvastatin 40 mg oral tablet 40 mg = 1 tab, PO, Bedtime, 0 Refill(s) Active 02/10/2017 [facility] heparin sodium, porcine 2500 UNT/ML Injectable Solutio n Notes: porcine heparin No Longer Active 02/10/2017 [facility] nter NS (Bolus) IV 250 mL, 250 ml/h r, Infuse Over: 1 hr, Route: IV, 250, Drug form: INJ, ONCE, Priority: STAT, Dosing Weight 125 kg, Start date: 02/09/17 17:28:00 REGISTERED NURSE SURGICAL SERVICES, Stop date: 02/09/17 17:28:00 REGISTERED NURSE SURGICAL SERVICES Inactive 02/09/2017 [facility] Potassium Chloride Notes: ([facility] as: K-Dur 20) "Do Not Crush" With food and full glass of water No Longer Active 02/09/2017 [facility] Sodium Chloride 0.9% (Bolus) IV 250 mL, 250 ml/hr, Infuse Over: 1 hr, Route: IV, 250, Drug form: INJ, ONCE, Dosing Weight 125 kg, Start date: 02/09/17 16:17:00 REGISTERED NURSE SURGICAL SERVICES, Stop date: 02/09/17 16:17:00 REGISTERED NURSE SURGICAL SERVICES Inactive 02/09/2017 [facility] verapamil 120 mg oral tablet 1 20 mg = 1 tab, PO, Daily, 0 Refill(s) No Longer Active 02/09/2017 [facility] divalproex sodium 125 mg oral enteric co ated tablet (Depakote) 125 mg = 1 tab, PO, Daily, 0 Refill(s) No Longer Active 02/09/2017 [facility] thyroid (CORRECTION) 60 MG Oral Tablet [Waelder Thyroid] 60 mg = 1 tab, PO, Daily, # 30 tab, 1 Refill(s) Active 02/09/2017 [facility] nter Potassium Chloride Notes: ([facility] e as: K-Dur 20) "Do Not Crush" With food and full glass of water No Longer Active 02/09/2017 [facility] Codeine Phosphate 10 MG / Guaifenesin 30 0 MG Oral Tablet Notes: (Same As: Robitussin AC) No Longer Active 02/09/2017 [facility] nter Furosemide Notes: (Same as: Yulia ramirez) MEDICATION WASTE Product Size: 40 mg Product Wasted: ___ mg No Longer Active 02/08/2017 [facility] montelukast Notes: (Same as:Si ngulair) No Longer Active 02/08/2017 [facility] divalproex sodium 125 mg oral enteric co ated tablet (Depakote) Notes: (Same as: Depakote Delayed Releas e) Do not confuse with the extended-release tablet. Delayed absorption, enteric coated tablet. Do not crush No Longer Active 02/08/2017 [facility] Furosemide 20 MG Oral Tablet N otes: (Same as: Lasix) May cause GI upset. Give with food or milk. No Longer Active 02/07/2017 [facility] pantoprazole Notes: Tablet joshua uld not be chewed or crushed. (Same as: Protonix) N o Longer Active 02/07/2017 [facility] nter Verapamil Notes: (Same As: Hardy an, Isoptin) "Avoid grapefruit and grapefruit juice" No Longer Active 02/07/2017 [facility] nter Waelder Thyroid Notes: (Same As : Antwan Thyroid, S-P-T) No Longer Active 02/07/2017 [facility] Hydrochlorothiazide 12.5 MG / Olmesartan medoxomil 20 MG Oral Tablet [Benicar HCT 20/12.5] 1 tab, Route: PO, Drug Form: TAB, Dosing Weight 121.364, kg, Daily, Start date: 02/07/17 9:00:00 REGISTERED NURSE SURGICAL SERVICES, Duration: 30 day, Stop date: 03/08/17 9:00:00 REGISTERED NURSE SURGICAL SERVICES No Longer Active 02/07/2017 [facility] nter Microzide Notes: (Same as: Sarwat rozide) With food. No Longer Active 02/07/2017 [facility] Folic Acid 0.4 mg, 1 tab, Rout e: PO, Drug form: TAB, Daily, Dosing Weight 121.364, kg, Start date: 02/07/17 9:00:00 REGISTERED NURSE SURGICAL SERVICES, Duration: 30 day, Stop date: 03/08/17 9:00:00 REGISTERED NURSE SURGICAL SERVICES No Longer Active 02/07/2017 [facility] nter clopidogrel Notes: (Same As: P lavix) No Longer Active 02/07/2017 [facility] Vitamin D3 Notes: Same as: Vit poon D3 No Longer Active 02/07/2017 [facility] Aspirin Enteric Coated Notes: Do not crush or chew. (Same As: Ecotrin) No Longer Active 02/07/2017 [facility] nter Benicar 20 mg, 1 tab, Route: P O, Drug form: TAB, Daily, Start date: 02/07/17 9:00:00 REGISTERED NURSE SURGICAL SERVICES, Duration: 30 day, Stop date: 03/08/17 9:00:00 REGISTERED NURSE SURGICAL SERVICES No Longer Active 02/07/2017 [facility] influenza virus vaccine, inactivated Notes: (Same as: Fluzone Quadrivalent, Fluarix Quadrivalent) For 3 years of age and older (0.5 mL IM) Shake well before use Inactive 02/07/2017 [facility] nter Docusate Notes: (Same as: Cola ce) (Do Not Crush) No Longer Active 02/07/2017 [facility] Albuterol 0.833 MG/ML / Ipratropium Brom kathy 0.167 MG/ML Inhalant Solution [DuoNeb] Notes: (Same as: Duoneb) No Longer Active 02/07/2017 [facility] Dextromethorphan Hydrobromide 10 MG / Gu aifenesin 200 MG Oral Capsule Notes: (dextromethorphan-guaifenesin 10- 100mg/5ml 10 ml oral SOLN ud) (Same as: Robitussin DM) N o Longer Active 02/07/2017 [facility] nter Ondansetron Notes: (Same as: Omayra lane) MEDICATION WASTE Product Size: 4 mg Product Wasted: ___ mg No Longer Active 02/07/2017 [facility] Acetaminophen 325 MG / Hydrocodone Lamar trate 5 MG Oral Tablet Notes: (Same as: Marinette 325/5) Do not ex ceed 4gm/day of acetaminophen. No Longer Active 02/07/2017 [facility] Acetaminophen Notes: Do not ex ceed 4 gm/day. (Same as: Tylenol) No Longer Active 02/07/2017 [facility] Docusate 100 mg, Route: PO, Dr ug form: CAP, BID, Dosing Weight 121.364, kg, Start date: 02/05/17 17:00:00 REGISTERED NURSE SURGICAL SERVICES, Duration: 30 day, Stop date: 03/07/17 9:00:00 REGISTERED NURSE SURGICAL SERVICES Inactive 02/05/2017 [facility] nter Dextromethorphan Hydrobromide 10 MG / Gu aifenesin 200 MG Oral Capsule 1 cap, Route: PO, Drug Form: CAP, Dosing Weight 121.364, kg, Q4H, PRN Cough, Start date: 02/05/17 15:14:00 REGISTERED NURSE SURGICAL SERVICES, Duration: 30 day, Stop date: 03/07/17 15:13:00 REGISTERED NURSE SURGICAL SERVICES Inactive 02/05/2017 [facility] Ondansetron 4 mg, Route: IVP, Q6H, Dosing Weight 121.364, kg, PRN Nausea & Vomiting, Start date: 02/05/17 15:14:00 REGISTERED NURSE SURGICAL SERVICES, Duration: 30 day, Stop date: 03/07/17 15:13:00 REGISTERED NURSE SURGICAL SERVICES Inactive 02/05/2017 [facility] nter Acetaminophen 325 MG / Hydrocodone Lamar trate 5 MG Oral Tablet 1 tab, Route: PO, Drug Form: TAB, Dosing Weight 121.364, kg, Q4H, PRN Pain Score 4-6, Start date: 02/05/17 15:14:00 REGISTERED NURSE SURGICAL SERVICES, Duration: 30 day, Stop date: 03/07/17 15:13:00 REGISTERED NURSE SURGICAL SERVICES Inactive 02/05/2017 [facility] Acetaminophen 100.4 F, Start date: 02/05/17 15:14:00 REGISTERED NURSE SURGICAL SERVICES, Duration: 30 day, Stop date: 03/07/17 15:13:00 REGISTERED NURSE SURGICAL SERVICES Inactive 02/05/2017 [facility] Albuterol 0.833 MG/ML / Ipratropium Brom kathy 0.167 MG/ML Inhalant Solution [DuoNeb] 3 ml, Route: NEB, Drug Form: SOLN, Dosin g Weight 121.364, kg, PRN, PRN Respiratory Protocol, Start date: 02/05/17 15:14:00 REGISTERED NURSE SURGICAL SERVICES, Duration: 30 day, Stop date: 03/07/17 15:13:00 REGISTERED NURSE SURGICAL SERVICES Inactive 02/05/2017 [facility] Hydromorphone Notes: Same as D ilaudid No [...] exceed 4gm/day of acetamin ophen. (Same as: Marinette 325/10) No Longer Active 08/27/2016 [facility] [...] exceed 4gm/day of acetamin ophen. (Same as: Marinette 325/10) No Longer Active 08/15/2016 [facility] [...] Hydrocodone Lamar trate 10 MG Oral Tablet [Marinette 10/325] 1-2 tab, PO, Q4-6H, PRN Pain, [...] aller gy Active 08/22/2013 Data migrated from [employer] on 06/22/14. Originally documented as TOPAMAX. memory loss [facility] Bee Sting Assertion anaphalaxis Severe Propensity to adverse reactions to substance Active [facility] Topamax Assertion Drug allergy Active [facility] Immunizations No Data Provided for This Section Results Order Name Results Value Reference Range Date Interpretation Comments Source MOLECULAR DIAGNOSTIC EBV PCR Qnt (lo g) <2.8 02/16/2017 [facility] MOLECULAR DIAGNOSTIC EBV PCR Qnt Not Detected (02/16/17 5:04 AM) 02/16/2017 [facility] CHEM PANEL Phosphorus 3.6 2.5 - 4.5 02/15/2017 [facility] CHEM PANEL Magnesium Lvl 2.2 1.8 - 2.4 02/15/2017 [facility] CHEM PANEL eGFR 71 02/15/2017 Result Comment: [...] should be multiplied by the estimated BMI. [facility] CHEM PANEL Calcium Lvl 8.5 8.5 - 10.5 02/15/2017 [facility] CHEM PANEL AGAP 13.1 10.0 - 20.0 02/15/2017 [facility] CHEM PANEL CO2 30 24 - 32 02/15/2017 [facility] CHEM PANEL Chloride Lvl 98 95 - 109 02/15/2017 [facility] CHEM PANEL Potassium Lvl 4.1 3.5 - 5.1 02/15/2017 [facility] CHEM PANEL Sodium Lvl 137 135 - 145 02/15/2017 [facility] CHEM PANEL Creatinine Lvl 1.11 0.50 - 1.40 02/15/2017 [facility] CHEM PANEL Glucose Lvl 94 70 - 99 02/15/2017 [facility] CHEM PANEL BUN 15 7 - 22 02/15/2017 [facility] IMMUNOLOGY CMV IgM 0.8 02/15/2017 [facility] IMMUNOLOGY CMV IgG React peggy *ABN* (02/15/17 3:28 AM) Non Reactive 02/15/2017 [facility] IMMUNOLOGY EBV VCA IgM 1.4 <=0.8 AI 02/15/2017 [facility] IMMUNOLOGY EBV VCA IgG >8.0 <=0.8 AI 02/15/2017 [facility] IMMUNOLOGY EBV NA IgG >8.0 <=0.8 AI 02/15/2017 [facility] CHEM PANEL Phosphorus 3.0 2.5 - 4.5 02/14/2017 [facility] CHEM PANEL Magnesium Lvl 2.1 1.8 - 2.4 02/14/2017 [facility] ELECTROLYTES Sodium Lvl 138 135 - 145 02/14/2017 [facility] ELECTROLYTES Creatinine Lvl 1.0 2 0.50 - 1.40 02/14/2017 [facility] ELECTROLYTES CO2 29 24 - 32 02/14/2017 [facility] ELECTROLYTES AGAP 13.1 10.0 - 20.0 02/14/2017 [facility] ELECTROLYTES Calcium Lvl 8.4 8.5 - 10.5 02/14/2017 [facility] ELECTROLYTES eGFR 79 02/14/2017 Result Comment: The [...] should be multiplied by the estimated BMI. [facility] ELECTROLYTES Chloride Lvl 100 95 - 109 02/14/2017 [facility] ELECTROLYTES Potassium Lvl 4.1 3.5 - 5.1 02/14/2017 [facility] ELECTROLYTES BUN 13 7 - 22 02/14/2017 [facility] ELECTROLYTES Glucose Lvl 93 70 - 99 02/14/2017 [facility] CHEM PANEL Phosphorus 3.0 2.5 - 4.5 02/13/2017 [facility] CHEM PANEL eGFR 69 02/13/2017 Result Comment: [...] should be multiplied by the estimated BMI. [facility] CHEM PANEL Calcium Lvl 8.3 8.5 - 10.5 02/13/2017 [facility] CHEM PANEL CO2 28 24 - 32 02/13/2017 [facility] CHEM PANEL Chloride Lvl 100 95 - 109 02/13/2017 [facility] CHEM PANEL Potassium Lvl 4.2 3.5 - 5.1 02/13/2017 [facility] CHEM PANEL AGAP 12.2 10.0 - 20.0 02/13/2017 [facility] CHEM PANEL Glucose Lvl 102 70 - 99 02/13/2017 [facility] CHEM PANEL BUN 13 7 - 22 02/13/2017 [facility] CHEM PANEL Sodium Lvl 136 135 - 145 02/13/2017 [facility] CHEM PANEL Creatinine Lvl 1.14 0.50 - 1.40 02/13/2017 [facility] CHEM PANEL Magnesium Lvl 2.1 1.8 - 2.4 02/13/2017 [facility] URINE CHEM Total Volume 2680 02/13/2017 [facility] URINE CHEM Total Volume 2680 02/13/2017 [facility] URINE CHEM U24 Creatinine 2203 02/13/2017 [facility] URINE CHEM U Creat mg/dL 82.2 02/13/2017 [facility] URINE CHEM U VMA 2.5 Undefined mg/L 02/13/2017 [facility] URINE CHEM U24 VMA 6.7 0.0 - 7.5 02/13/2017 Result Comment:
This test was yogesh lockwood and its performance characteristics
determined by [employer]. It has not been cleared or
approved by the Food and Drug Administration.
Performed At: [facility]
[address], [place] [id number]
Vivian Scott MD Ph:[phone] [facility] URINE CHEM U24 Normetanephrine 485 82 - 95033 02/13/2017 Result Comment: (Hypertensive) >17 years 11 months: 110 - 1050 [facility] URINE CHEM U24 Metanephrine 142 45 [id number] 02/13/2017 Result Comment: (Hypertensive) >17 years 11 months: 35 - 460
Performed At: [facility]
[address], [place] [id number]
Vivian Scott MD Ph:[phone] [facility] URINE CHEM U Normetaneph 181 Undefined microgram/Liter 02/13/2017 [facility] URINE CHEM U Metanephrine 53 Undefined microgram/Liter 02/13/2017 [facility] URINE CHEM Total Volume 2680 02/13/2017 [facility] URINE CHEM Total Volume 2680 02/13/2017 [facility] URINE CHEM U Creat mg/dL 82.2 Not Estab. mg/dL 02/13/2017 [facility] URINE CHEM U24 Creatinine 2203 1000 - 2000 02/13/2017 [facility] URINE CHEM U Cortisol Free 9 Undefined microgram/Liter 02/13/2017 [facility] URINE CHEM U24 [place] 24 0 - 5024 02/13/2017 Result Comment:
This test was yogesh lockwood and its performance characteristics
determined by [facility]. It has not been cleared or
approved by the Food and Drug Administration.
Performed At: [facility]
[address], [place] [id number]
Vivian Scott MD Ph:[phone]
Performed At: [facility]
[address], [place] [id number]
Jem Koo MD Ph:[phone] [facility] CHEM PANEL Uric Acid 5.7 3.8 - 8.0 02/11/2017 [facility] ENDOCRINOLOGY Cortisol 13.4 02/11/2017 [facility] ENDOCRINOLOGY Aldosterone 19.5 0.0 - 30.0 02/11/2017 Result Comment:
This test was yogesh lockwood and its performance characteristics
determined by [facility]. It has not been cleared or
approved by the Food and Drug Administration.
Performed At: [facility]
[address], [place] [id number]
Vivian Scott MD Ph:[phone] [facility] ENDOCRINOLOGY Normetanephrine 84 0 - 145 02/11/2017 [facility] ENDOCRINOLOGY Metanephrine 14 0 - 62 02/11/2017 Result Comment:
Concentrations of Normetanephrine between 146 and 487
pg/mL, and Metanephrine between 63 and 255 pg/mL are
considered indeterminate. Follow-up biochemical testing is
recommended when patient levels fall within this
indeterminate range. These tests include repeat testing of
plasma/urinary fractionated metanephrines and plasma
catecholamines.
Performed At: [facility]
[address], [place] [id number]
Vivian Scott MD Ph:[phone] [facility] ENDOCRINOLOGY Renin Activity 19 .586 0.167 - 5.380 02/11/2017 Result Comment: This test was developed and its performance characteristics
determined by [facility]. It has not been cleared or
approved by the Food and Drug Administration.
Performed At: [facility]
[address], [place] [id number]
Vivian Scott MD Ph:[phone] [facility] SPECIAL CHEMISTRY ACTH Lvl 14 0 - 46 02/11/2017 [facility] URINE CHEM U Sodium 113 02/11/2017 [facility] URINE CHEM U Prot/Creat <0.15 02/11/2017 [facility] URINE CHEM U Protein <5.0 02/11/2017 [facility] URINE CHEM U Chloride 151 02/11/2017 [facility] URINE CHEM U Creatinine 33.90 02/11/2017 [facility] URINE CHEM U Osmolality 403 300 - 800 02/11/2017 [facility] URINE CHEM U Potassium 37.9 02/11/2017 [facility] CARDIAC ENZYMES BNP 12 <=100 pg/mL 02/11/2017 [facility] CHEM PANEL Bili Indirect Unabl e to Calculate 0.0 - 1.0 02/11/2017 [facility] CHEM PANEL Bili Total 0.5 0.2 - 1.3 02/11/2017 [facility] CHEM PANEL Bili Direct <0.1 0.0 - 0.3 02/11/2017 [facility] CHEM PANEL A/G Ratio 0.8 0.7 - 1.6 02/11/2017 [facility] CHEM PANEL ALT 49 0 - 65 02/11/2017 [facility] CHEM PANEL Alk Phos 98 39 - 136 02/11/2017 [facility] CHEM PANEL AST 25 0 - 37 02/11/2017 [facility] CHEM PANEL Total Protein 6.0 6.4 - 8.4 02/11/2017 [facility] CHEM PANEL Albumin Lvl 2.6 3.5 - 5.0 02/11/2017 [facility] CHEM PANEL Globulin 3.4 2.7 - 4.2 02/11/2017 [facility] HEMATOLOGY MCV 89.0 80.0 - 94.0 02/11/2017 [facility] HEMATOLOGY Platelet 206 133 - 450 02/11/2017 [facility] HEMATOLOGY MPV 7.8 7.4 - 10.4 02/11/2017 [facility] HEMATOLOGY MCH 30.4 27.0 - 31.0 02/11/2017 [facility] HEMATOLOGY RDW 15.2 11.5 - 14.5 02/11/2017 [facility] HEMATOLOGY MCHC 34.2 32.0 - 36.0 02/11/2017 [facility] HEMATOLOGY Hct 37.4 42.0 - 54.0 02/11/2017 [facility] HEMATOLOGY RBC 4.20 4.70 - 6.10 02/11/2017 [facility] HEMATOLOGY WBC 9.3 3.7 - 10.4 02/11/2017 [facility] HEMATOLOGY Hgb 12.8 14.0 - 18.0 02/11/2017 [facility] HEMATOLOGY Segs 67.6 45.0 - 75.0 02/11/2017 [facility] HEMATOLOGY Lymphocytes 22.6 20.0 - 40.0 02/11/2017 [facility] HEMATOLOGY Monocytes 7.8 2.0 - 12.0 02/11/2017 [facility] HEMATOLOGY Eosinophils 1.2 0.0 - 4.0 02/11/2017 [facility] HEMATOLOGY Basophils # 0.1 0.0 - 0.2 02/11/2017 [facility] HEMATOLOGY Basophils 0.8 0.0 - 1.0 02/11/2017 [facility] HEMATOLOGY Segs-Bands # 6.3 1.5 - 8.1 02/11/2017 [facility] HEMATOLOGY Lymphocytes # 2.1 1.0 - 5.5 02/11/2017 [facility] HEMATOLOGY Monocytes # 0.7 0.0 - 0.8 02/11/2017 [facility] HEMATOLOGY Eosinophils # 0.1 0.0 - 0.5 02/11/2017 [facility] HEMATOLOGY Basophils # 0.1 0.0 - 0.2 02/08/2017 [facility] HEMATOLOGY Monocytes # 1.0 0.0 - 0.8 02/08/2017 [facility] HEMATOLOGY Lymphocytes # 2.2 1.0 - 5.5 02/08/2017 [facility] HEMATOLOGY Segs-Bands # 7.2 1.5 - 8.1 02/08/2017 [facility] HEMATOLOGY Eosinophils # 0.1 0.0 - 0.5 02/08/2017 [facility] HEMATOLOGY Lymphocytes 21.2 20.0 - 40.0 02/08/2017 [facility] HEMATOLOGY Basophils 0.6 0.0 - 1.0 02/08/2017 [facility] HEMATOLOGY Monocytes 9.4 2.0 - 12.0 02/08/2017 [facility] HEMATOLOGY Segs 68.1 45.0 - 75.0 02/08/2017 [facility] HEMATOLOGY Eosinophils 0.7 0.0 - 4.0 02/08/2017 [facility] HEMATOLOGY Platelet 148 133 - 450 02/08/2017 [facility] HEMATOLOGY MPV 7.8 7.4 - 10.4 02/08/2017 [facility] HEMATOLOGY RDW 15.5 11.5 - 14.5 02/08/2017 [facility] HEMATOLOGY MCHC 34.9 32.0 - 36.0 02/08/2017 [facility] HEMATOLOGY MCH 30.8 27.0 - 31.0 02/08/2017 [facility] HEMATOLOGY Hct 38.2 42.0 - 54.0 02/08/2017 [facility] HEMATOLOGY RBC 4.34 4.70 - 6.10 02/08/2017 [facility] HEMATOLOGY MCV 88.1 80.0 - 94.0 02/08/2017 [facility] HEMATOLOGY Hgb 13.3 14.0 - 18.0 02/08/2017 [facility] HEMATOLOGY WBC 10.5 3.7 - 10.4 02/08/2017 [facility] URINE AND STOOL UA Nitrite Negative (02/07/17 1:50 AM) Negative 02/07/2017 [facility] URINE AND STOOL UA CaOx [place] Occasional /HPF None Seen /HPF 02/07/2017 [facility] URINE AND STOOL UA Leuk Est Negative (02/07/17 1:50 AM) Negative 02/07/2017 [facility] URINE AND STOOL UA RBC <1 0 - 2 02/07/2017 [facility] URINE AND STOOL UA Mucus Few /LPF None Seen /LPF 02/07/2017 [facility] URINE AND STOOL UA WBC 1 0 - 5 02/07/2017 [facility] URINE AND STOOL UA Bili Negative *NA* (02/07/17 1:50 AM) Negative 02/07/2017 [facility] URINE AND STOOL UA Glucose Negative mg/dL Negative mg/dL 02/07/2017 [facility] URINE AND STOOL UA Ketones Negative mg/dL Negative mg/dL 02/07/2017 [facility] URINE AND STOOL UA Blood Negative (02/07/17 1:50 AM) Negative 02/07/2017 [facility] URINE AND STOOL UA Color Yellow *NA* (02/07/17 1:50 AM) Yellow 02/07/2017 [facility] URINE AND STOOL UA Turbidity Clear (02/07/17 1:50 AM) Clear 02/07/2017 [facility] URINE AND STOOL UA Protein 20 mg/dL Negative mg/dL 02/07/2017 [facility] URINE AND STOOL UA Spec Grav 1.024 <=1.030 02/07/2017 [facility] URINE AND STOOL UA pH 6.0 5.0 - 8.0 02/07/2017 [facility] URINE AND STOOL UA Hyal Cast 3 0 - 2 02/07/2017 [facility] URINE AND STOOL UA Sq Epi None Seen 02/07/2017 [facility] URINE AND STOOL UA Urobilinogen <=1.0 mg/dL 0.1 - 1.0 02/07/2017 [facility] URINE CHEM U Sodium 42 02/07/2017 [facility] URINE CHEM U Creatinine 247.00 02/07/2017 [facility] URINE CHEM U Prot/Creat 0.14 02/07/2017 [facility] URINE CHEM U Protein 35.5 02/07/2017 [facility] URINE CHEM U Osmolality 894 300 - 800 02/07/2017 [facility] CHEM PANEL Osmolality 286 280 - 300 02/07/2017 [facility] CHEM PANEL Bili Indirect 0.8 0.0 - 1.0 02/07/2017 [facility] CHEM PANEL Bili Direct 0.2 0.0 - 0.3 02/07/2017 [facility] CHEM PANEL Bili Total 1.0 0.2 - 1.3 02/07/2017 [facility] CHEM PANEL Alk Phos 108 39 - 136 02/07/2017 [facility] CHEM PANEL AST 34 0 - 37 02/07/2017 [facility] CHEM PANEL ALT 66 0 - 65 02/07/2017 [facility] CHEM PANEL Albumin Lvl 2.9 3.5 - 5.0 02/07/2017 [facility] CHEM PANEL Total Protein 5.9 6.4 - 8.4 02/07/2017 [facility] CHEM PANEL A/G Ratio 1.0 0.7 - 1.6 02/07/2017 [facility] CHEM PANEL Globulin 3.0 2.7 - 4.2 02/07/2017 [facility] HEMATOLOGY Lymphocytes 16.4 20.0 - 40.0 02/07/2017 [facility] HEMATOLOGY Monocytes 9.6 2.0 - 12.0 02/07/2017 [facility] HEMATOLOGY Eosinophils 0.4 0.0 - 4.0 02/07/2017 [facility] HEMATOLOGY Basophils 0.6 0.0 - 1.0 02/07/2017 [facility] HEMATOLOGY Segs-Bands # 7.7 1.5 - 8.1 02/07/2017 [facility] HEMATOLOGY Basophils # 0.1 0.0 - 0.2 02/07/2017 [facility] HEMATOLOGY Monocytes # 1.0 0.0 - 0.8 02/07/2017 [facility] HEMATOLOGY Lymphocytes # 1.7 1.0 - 5.5 02/07/2017 [facility] HEMATOLOGY Segs 73.0 45.0 - 75.0 02/07/2017 [facility] HEMATOLOGY Sed Rate 12 0 - 15 02/07/2017 [facility] HEMATOLOGY D-Dimer 1.12 02/07/2017 [facility] HEMATOLOGY WBC 10.5 3.7 - 10.4 02/07/2017 [facility] HEMATOLOGY RBC 4.76 4.70 - 6.10 02/07/2017 [facility] HEMATOLOGY Hgb 14.7 14.0 - 18.0 02/07/2017 [facility] HEMATOLOGY MCH 30.8 27.0 - 31.0 02/07/2017 [facility] HEMATOLOGY RDW 14.7 11.5 - 14.5 02/07/2017 [facility] HEMATOLOGY Platelet 150 133 - 450 02/07/2017 [facility] HEMATOLOGY MCHC 35.0 32.0 - 36.0 02/07/2017 [facility] HEMATOLOGY Hct 41.9 42.0 - 54.0 02/07/2017 [facility] HEMATOLOGY MCV 87.9 80.0 - 94.0 02/07/2017 [facility] HEMATOLOGY MPV 7.2 7.4 - 10.4 02/07/2017 [facility] HEMATOLOGY PTT 28.6 22.9 - 35.8 02/07/2017 [facility] HEMATOLOGY PT 13.7 12.0 - 14.7 02/07/2017 [facility] HEMATOLOGY INR 1.05 0.85 - 1.17 02/07/2017 [facility] LIPIDS CHD Risk 3.64 4.00 - 7.30 02/07/2017 [facility] LIPIDS Trig 159 <=149 mg/dL 02/07/2017 [facility] LIPIDS HDL 33 >=61 mg/dL 02/07/2017 [facility] LIPIDS Chol 120 <=199 mg/dL 02/07/2017 [facility] LIPIDS LDL (Calculated) 55 <=99 mg/dL 02/07/2017 [facility] LIPIDS VLDL 32 02/07/2017 [facility] SPECIAL CHEMISTRY Hgb A1C 7.8 <=5.6 % 02/07/2017 [facility] Pathology Reports No Data Provided for This [...] obstructing lesions in the aerodigestive tract. 02/17/2017 [facility] Brain wo contrast CT EXAM: CT BRAIN WITHOUT CONTRAST DATE: 02/17/2017 2:05 PM REGISTERED NURSE [facility]GICAL [facility] INDICATION: - please assess for possible changes [...] without evidence of acute intracranial injury. 02/17/2017 [facility] Abdomen/Pelvis wo IV contrast CT EXAM: CT [...] obstruction.) 2. Hepatic steatosis RECOMMENDATIONS: None. 02/07/2017 [facility] Chest wo contrast CT EXAM: CT CHEST WITHOUT CONTRAST DATE: 02/07/2017 12:54 PM REGISTERED NURSE SURGICAL SERVICES INDICATION: Coughing - unremitting cough, abnormalities seen [...] 3.8 cm. 3. Trace pericardial effusion. 02/07/2017 [facility] Chest 2 views DX EXAM: XR CHES T 2 VIEWS DATE: 02/07/2017 7:00 AM REGISTERED NURSE [facility]GICAL [facility] INDICATION: - chronic unrelieved coughing COMPARISON: 06/23/2015 [...] consolidation. 2. Bibasilar atelectasis. 3. Cardiomegaly. 02/07/2017 [facility] Blood patch VR DATE: 6 INDICATION: cerebrospinal [...] the right dorsal lamina at C7-T1. Using pwqs-na-zofbuwmitg technique (nonbacteriostatic saline), the dorsal epidural space [...] was pe rformed as described above. 09/06/2015 [facility] Chest 2 views DX Clinical Elisa cation: [...] IMPRESSION: No acute infiltrates or effusions. SL: [id number] 06/23/2015 [facility] Chest 2 views DX Name: STEVEN HOUGH [...] No acute cardiopulmonary abnormality. SL: 23 03/05/2015 [facility] Consultation Notes No Data Provided for This [...] Group Temperature Oral (F) 98.3 F 02/18/2017 [facility] Heart Rate 94 02/18/2017 [facility] Systolic (mm Hg) 115 02/18/2017 [facility] Diastolic (mm Hg) 80 02/18/2017 [facility] Respitory Rate 18 02/18/2017 [facility] Heart Rate 93 02/18/2017 [facility] Respitory Rate 18 02/18/2017 [facility] Systolic (mm Hg) 129 02/18/2017 [facility] Diastolic (mm Hg) 89 02/18/2017 [facility] Temperature Oral (F) 98.7 F 02/18/2017 [facility] Systolic (mm Hg) 123 02/18/2017 [facility] Diastolic (mm Hg) 84 02/18/2017 [facility] Respitory Rate 18 02/18/2017 [facility] Heart Rate 90 02/18/2017 [facility] Temperature Oral (F) 99.4 F 02/18/2017 [facility] BMI Calculated 37.37 02/07/2017 [facility] Weight 125 02/07/2017 [facility] Height 182.88 cm 02/07/2017 [facility] Systolic (mm Hg) 127 [...] ADM Date DC Date Status Source Outpatient [id number] JACKIE SOLO 09/15/2014 Active [facility] Outpatient [id number] RENAN RK 09/29/2014 Active [facility] Outpatient [id number] DONNIE BOYKIN 10/03/2014 Active [facility] Outpatient [id number] DONNIE BOYKIN 12/18/2014 Active [facility] Outpatient [id number] SANGITA GREWAL 02/10/2015 [facility] Outpatient [id number] DONNIE BOYKIN 02/12/2015 [facility] Outpatient [id number] JUAN ATKINSON 03/05/2015 [facility] Outpatient [id number] JUAN ATKINSON 06/18/2015 [facility] Outpatient [id number] JUAN ATKINSON 06/23/2015 [facility] Outpatient [id number] Luan Maradiaga 09/06/2015 09/07/2015 [facility] [id number] Barron Hanley 08/15/2016 08/16/2016 [facility] Orthopedic [facility] Spine [facility] Day [facility] [id number] Barron Hanley 08/27/2016 08/28/2016 [facility] Inpatient [id number] Elizabeth Ceja 201602/18/2017 [facility] Outpatient [id number] Randee Tamayo 06/22/2018 [facility] [place] Outpatient [id number] Randee Tamayo 06/22/2018 06/23/2018 [facility] [id number] Randee Tamayo 07/02/2018 [facility] [place] Ambulatory Pre-Reg [id number] Donnie Boykin 07/02/2018 07/02/2018 [facility] [id number] Karen Haines 02/01/2019 [facility] [place] Outpatient [id number] Donnie Boykin 02/01/2019 02/02/2019 [facility] Procedures Procedure Code Date Perfomer Comments Source Injection [id number] 08/15/2016 [facility] Bladder operation<sup>1</sup> [id number] 11/24/2015 Removed growth from bladder [facility] Operation on prostate<sup>2</sup> [id number] 11/24/2015 surgery on prostate- scraped [facility] Back fusion [id number] 09/23/2012 [facility] Vagotomy [id number] 02/23/1993 [facility] Arthroscopy of knee<sup>3</sup> [id number] 11 kness s urgeries between both knees [facility] Carpal tunnel release [id number] [facility] Neck closure [id number] [facility] Vasectomy [id number] [facility] Assessment and Plan Assessment [...] Documented Home Medications: Home Medications (17) Active [place] Thyroid 30 mg oral tablet 30 mg [...] 10 mg = 1 tab, PO, Bedtime [place] 10/325 oral tablet 1-2 tab, PRN, PO, [...] deferreed Impressions: _ Diagnosis: -lumbar disc herniation [id number] Treatment plan:_ bilateral L4-S1 TFESI 08/16/2016 Ortho [...] age: 28; 13 hrs each time 06/19/2015 [facility] Family History No Data Provided for This Section Advance Directives No Data Provided for This Section Functional Status No Data Provided for This Section
[2019-11-09 14:23] LABS: BASOPHILS # (AUTO) 0.1 (0.0-0.1); BASOPHILS % 0.8 % (0.0-1.0); EOSINOPHILS # (AUTO) 0.1 (0.0-0.4); EOSINOPHILS % 1.5 % (0.0-6.0); HEMOGLOBIN 15.2 g/dL (14.0-18.0); LYMPHOCYTES % 22.1 % (18.0-39.1); MEAN CORPUSCULAR HEMOGLOBIN 28.6 pg (28-32); MEAN CORPUSCULAR VOLUME 86.5 fL (81-99); MONOCYTES # (AUTO) 1.1 (0.2-0.8); MONOCYTES % 12.1 % (4.4-11.3); NEUTROPHILS # (AUTO) 5.8 (2.1-6.9); PLATELET COUNT 326 x10e3/uL (140-360); RED BLOOD COUNT 5.32 x10e6/uL (4.3-5.7); RED CELL DISTRIBUTION WIDTH 13.3 % (11.7-14.4)
[2019-11-09] MEDS ORDERED: AZITHROMYCIN 500MG/NS 250 ML 250 ML IV ONE (14:30)
[2019-11-09 14:39] LABS: ALANINE AMINOTRANSFERASE 33 IU/L (0-55); ALBUMIN/GLOBULIN RATIO 1.5 (0.8-2.0); ALKALINE PHOSPHATASE 144 IU/L (40-150); ANION GAP 13.8 mmol/L (8-16); BLOOD UREA NITROGEN 18 mg/dL (7-26); BUN/CREATININE RATIO 16 (6-25); CALCIUM 9.1 mg/dL (8.4-10.2); CARBON DIOXIDE 26 mmol/L (22-29); CHLORIDE 102 mmol/L (98-107); EST GLOMERULAR FILTRATION RATE > 60 ML/MIN (60-); GLUCOSE 101 mg/dL (74-118); POTASSIUM 3.8 mmol/L (3.5-5.1); SODIUM 138 mmol/L (136-145)
--- NOTE | 2019-11-09 14:55 | Diagnostic Imaging Report ---
EXAMINATION: CHEST SINGLE (PORTABLE) INDICATION: Shortness of breath, cough COMPARISON: None FINDINGS: LINES/TUBES:None LUNGS:The lungs are well-inflated. No focal consolidation or pulmonary edema. PLEURA:No pleural effusion or pneumothorax. MEDIASTINUM:The cardiomediastinal silhouette appears normal in size and shape. BONES/SOFT TISSUES:No acute osseous injury. ABDOMEN:No free air under the diaphragm. IMPRESSION: No focal pneumonia or pulmonary edema. Signed by: Aleksandr Rojas MD on 11/09/2019 2:51 PM
--- NOTE | 2019-11-09 15:25 | History and Physical ---
HISTORY OF PRESENT ILLNESS: The patient is a 64-year-old male with past medical history positive for recent pneumonia, sepsis, COVID-19, hypertension, coronary artery disease, status post stent placement, came to the hospital complaining of fever and cough again. The patient has been seen by Dr. Medina before. He did have COVID-19 like a month ago. REVIEW OF SYSTEMS: CARDIOVASCULAR: No chest pain or palpitation. RESPIRATORY: He has cough and shortness of breath. No fever. GASTROINTESTINAL: No nausea, vomiting, or diarrhea. GENITOURINARY: No frequency or dysuria. ALLERGIES: LISTED IN THE CHART. SOCIAL HISTORY: He does not smoke, does not drink. MEDICAL HISTORY: History of COVID-19 infection like a month ago, history of sepsis, history of pneumonia, hypertension, coronary artery disease, status post stent placement. PHYSICAL EXAMINATION: HEART: Showed regular rhythm. Normal S1, S2 sound. LUNGS: Clear bilaterally. ABDOMEN: Soft. EXTREMITIES: Show no evidence of edema or cyanosis. IMPRESSION: 1. Pneumonia. 2. Hypertension. 3. Coronary artery disease. 4. Obesity. 5. Possible sepsis. PLAN OF TREATMENT: The patient is going to be started on empiric IV antibiotic. Blood work has been ordered. CBC, BMP, blood cultures. Dr. Medina has been consulted for Infectious Disease point of view. I do not have the rest of the chart because the patient came to the emergency room. Plan of care with depending on the blood culture report on the rest of the lab work. The case has been discussed with the emergency room physician. The patient time spent around an hour. MD RYAN Salmon/YOUNG /[id number]
--- NOTE | 2019-11-09 15:41 | NUR ---
NOTIFIED OF BP 91/67. MAP IS 75. NO NEW ORDERS PER MD
--- NOTE | 2019-11-09 17:01 | NUR ---
REPORT GIVEN TO JOIE RUBIO
[2019-11-09 17:11] VITALS: BP_SYST 114; BP_DIAS 43; BP_DIAS 73
[2019-11-09 17:24] VITALS: BP 114/73
--- NOTE | 2019-11-09 18:00 | NUR ---
Pt received from ER at 1711. Pt is aox4 and able to verbalize needs. Denies any pain at this time. Breaths are even and unlabored on room air. Spoke with Dr. Medina and received order for medications and CTA of chest.
[2019-11-09] MEDS ORDERED: ARMOUR THYROID60 MG PO (18:28)
[2019-11-09] MEDS ORDERED: MONTELUKAST SOD10 MG PO (18:28)
[2019-11-09] MEDS ORDERED: PANTOPRAZOLE SO40 MG PO (18:28)
[2019-11-09] MEDS ORDERED: EZETIMIBE10 MG PO (18:28)
[2019-11-09] MEDS ORDERED: VITAMIN D3 COM1 EACH (18:28)
[2019-11-09] MEDS ORDERED: NEPHRO-VITE TABL1 EA PO (18:28)
[2019-11-09] MEDS ORDERED: ASPIRIN81 MG PO (18:28)
[2019-11-09] MEDS ORDERED: ZINC SULFATE220 M1 PO (18:28)
[2019-11-09] MEDS ORDERED: LINZESS72 MCG PO (18:28)
[2019-11-09] MEDS ORDERED: BENICAR40 MG PO (18:28)
[2019-11-09] MEDS ORDERED: DIVALPROEX SOD500 MG PO (18:28)
[2019-11-09] MEDS ORDERED: REPATHA SY140 MG/1 M SQ (18:28)
[2019-11-09] MEDS ORDERED: VERAPAMIL ER120 MG PO (18:28)
[2019-11-09] MEDS ORDERED: SUMATRIPTAN SUC25 MG PO (18:28)
[2019-11-09] MEDS ORDERED: NIACIN500 M2 PO (18:28)
[2019-11-09] MEDS ORDERED: SODIUM CHLORIDE 0.9% 50ML 50 ML ONE (18:47)
[2019-11-09] MEDS ORDERED: IOPAMIDOL 370 MG/ML 200 ML INFUS..BTL INJ ONE (18:48)
[2019-11-09 20:00] VITALS: BP 97/67
--- NOTE | 2019-11-09 20:19 | Diagnostic Imaging Report ---
EXAMINATION: CT of the chest with contrast, PE protocol. TECHNIQUE: Spiral CT images of the chest were performed from the lung apices through the level of the adrenal glands after the IV administration of 100 cc of Isovue 370. Thin section reconstructions were obtained with special concentration on the pulmonary arteries. Coronal and sagittal reformatted images were also performed. COMPARISON: Portable chest 11/09/2019 CLINICAL HISTORY:COVID +, pneumonia, suspect PE DISCUSSION: Lungs: No filling defects are identified in the main, right or left pulmonary arteries to their segmental levels, to suggest pulmonary embolism. Unable to assess subsegmental levels. Mild bilateral lower lobe dependent atelectasis. Subpleural wedge/linear shape densities in the lateral left upper lobe (series 3, images 53 and 51), are felt to represent focal atelectasis or scarring. No diffuse groundglass opacities or consolidation. 3-4 mm and 5 mm pulmonary nodules in the lateral right upper lobe (series 3, images 39 and 33). 4-5 mm pulmonary nodule in the posterior right lower lobe (series 3, image 63) No other pulmonary nodules. Airways: <The major airways are clear.> Pleura: <There is no evidence of pleural effusion or pneumothorax.> Heart and mediastinum: Thyroid is unremarkable. Borderline cardiomegaly. Aorta is not aneurysmal. Main pulmonary artery is normal in caliber. Atherosclerotic calcification of the coronary arteries and to lesser degree thoracic aortic arch. Mediastinal lipomatosis. Lymph nodes: No mediastinal, hilar or axillary adenopathy. Abdomen: The visualized portions of the liver, gallbladder, spleen, pancreas, adrenal glands and kidneys are unremarkable. Bones and soft tissues: No aggressive lytic or suspicious focal sclerotic lesions. Multilevel degenerated disks in the thoracic spine. Soft tissues are grossly unremarkable. Minimal gynecomastia. IMPRESSION: 1. No CT evidence of pulmonary embolism to the segmental level. 2. Mild bilateral lower lobe dependent atelectasis. No diffuse groundglass opacities or consolidation to suggest pneumonia. 3. Nonspecific pulmonary nodules which measure up to 5 mm. If patient is low risk, no further follow-up is indicated per Fleischner Society 2017 guidelines. Signed by: Dr. Rene Alexandra M.D. on 11/09/2019 8:16 PM
[2019-11-09] MEDS: ENOXAPARIN SOD INJ 40 MG/0.4 ML SYR SC SCH (20:27)
[2019-11-09] MEDS: SODIUM CHLORIDE 0.9% 1000ML 1,000 ML IV SCH (20:27)
--- NOTE | 2019-11-09 20:51 | Consultation ---
DATE OF CONSULTATION: HISTORY OF PRESENT ILLNESS: This is a very pleasant 64-year-old white male, who has no past medical history. Three weeks ago, he was diagnosed with COVID-19. He had to go to the emergency room couple times where he got some fluid. He was doing well. He was visiting my office with his who had COVID-19 recently, looked very sick when I was talking to his , he was short of breath. He did not look good at all. Told him he needed to be admitted because of concern about superimposed infection. PAST MEDICAL HISTORY: Hypertension. PAST SURGICAL HISTORY: Denies. ALLERGIES: NKA. SOCIAL HISTORY: There is no smoking, drug abuse or alcohol abuse. Originally, he is from [facility]. He has been here for seven years ago. LABORATORY DATA: White count was 9.2, hemoglobin 15, hematocrit 46. His COVID-19 is positive. White count was 9.2. Chest x-ray was read as no focal pneumonia. PHYSICAL EXAMINATION: GENERAL: Currently alert and oriented. VITAL SIGNS: Stable. Currently afebrile but he is not hypoxemic. HEENT: He is not icteric. NECK: Supple. CHEST: Crackles bilateral. HEART: S1, S2. ABDOMEN: Soft. Bowel sounds present. EXTREMITIES: No edema. SKIN: No rash. IMPRESSION: Sepsis, concerned about infection. Agree with blood cultures and urine cultures. We will put him on Rocephin and azithromycin, Lovenox 40 subcutaneous q.12. We will also obtain CTA to rule out pulmonary embolism. I will give IV fluid. His positive PCR does not reflect infection at the present time. He has been sick for more than three weeks but he needs to maintain with the mask. The patient is not hypoxemic. We will follow. MD CHETNA Reyna/YOUNG /[id number]
[2019-11-09 21:00] VITALS: BP 97/67
[2019-11-10] VITALS (7 sets, daily range): BP systolic 102–113; BP diastolic 53–79
[2019-11-10] MEDS: SODIUM CHLORIDE 0.9% 1000ML 1,000 ML IV SCH ×2 (03:45→14:27)
[2019-11-10 06:20] LABS: BASOPHILS # (AUTO) 0.1 (0.0-0.1); BASOPHILS % 0.7 % (0.0-1.0); EOSINOPHILS # (AUTO) 0.2 (0.0-0.4); HEMATOCRIT 47.1 % (38.2-49.6); HEMOGLOBIN 14.8 g/dL (14.0-18.0); LYMPHOCYTES # (AUTO) 2.9 (1.0-3.2); LYMPHOCYTES % 25.9 % (18.0-39.1); MEAN CORPUSCULAR HGB CONC 31.4 g/dL (31-35); MONOCYTES # (AUTO) 1.4 (0.2-0.8); MONOCYTES % 12.7 % (4.4-11.3); NEUTROPHILS # (AUTO) 6.5 (2.1-6.9); PLATELET COUNT 298 x10e3/uL (140-360); RED BLOOD COUNT 5.29 x10e6/uL (4.3-5.7); RED CELL DISTRIBUTION WIDTH 13.6 % (11.7-14.4)
[2019-11-10 06:42] LABS: ANION GAP 13.1 mmol/L (8-16); BLOOD UREA NITROGEN 19 mg/dL (7-26); BUN/CREATININE RATIO 20 (6-25); CALCIUM 9.5 mg/dL (8.4-10.2); CARBON DIOXIDE 26 mmol/L (22-29); CHLORIDE 102 mmol/L (98-107); CREATININE, SERUM 0.95 mg/dL (0.72-1.25); EST GLOMERULAR FILTRATION RATE > 60 ML/MIN (60-); GLUCOSE 99 mg/dL (74-118); POTASSIUM 4.1 mmol/L (3.5-5.1); SODIUM 137 mmol/L (136-145)
[2019-11-10] MEDS: ENOXAPARIN SOD INJ 40 MG/0.4 ML SYR SC SCH ×2 (08:41→20:36)
--- NOTE | 2019-11-10 11:30 | Consultation ---
DATE OF CONSULTATION: Pulmonary Consultation REASON FOR CONSULT: Shortness of breath. COVID pneumonia. HISTORY OF PRESENT ILLNESS: Mr. Martinez is a 64-year-old male who presented to the emergency room with complaints of shortness of breath. He was recently diagnosed with COVID-19 pneumonia. He has a history of hypertension, coronary artery disease, status post stent placement for coronary artery disease. He had fever and cough again, so he decided to come to the emergency room. The patient's PCR was positive for coronavirus. All other labs were okay. Chest CT was done, which showed no pulmonary embolism, mild atelectasis and there is no ground-glass or consolidation to suggest pneumonia. REVIEW OF SYSTEMS: GENERAL: He was having fever. No chills. HEAD: Denies any head trauma. ENT: Denies any earache. CVS: Denies any chest pain. RESPIRATORY: Shortness of breath. The rest of the review of systems are negative except as in HPI. PAST MEDICAL HISTORY: Hypertension and coronary artery disease. FAMILY AND SOCIAL HISTORY: He does not smoke. Does not drink. He quit smoking in 1984. PHYSICAL EXAMINATION: VITAL SIGNS: Temperature 97.6, pulse of 74, blood pressure 105/72, respiratory rate of 18, and O2 saturation 99% on room air. HEENT: Head is atraumatic, normocephalic. NECK: Supple. CHEST: No wheezing. No crackles. HEART: S1, S2 audible. ABDOMEN: Soft. EXTREMITIES: Trace pedal edema. NEUROLOGIC: He is awake and alert. No focal neurologic deficits. LABORATORY DATA: Reviewed. Chest CT reviewed. ASSESSMENT AND PLAN: Mr. Martinez is a 64-year-old male with coronavirus disease-19 infection. Currently appears to be very stable, not on oxygen. No need for steroids at this point. On IV antibiotics. He will be continued Lovenox 40 subcu b.i.d. for DVT prophylaxis. MD NABIL Watts/YOUNG /[id number]
[2019-11-10] MEDS ORDERED: GUAIFENESIN 200 MG/10 ML UDC PO PRN (14:15)
[2019-11-10] MEDS: CEFTRIAXONE SOD 2 GM/NS 100 ML 100 ML IV SCH (14:27)
[2019-11-10] MEDS: AZITHROMYCIN 500MG/NS 250 ML 250 ML IV SCH (16:09)
--- NOTE | 2019-11-10 16:41 | NUR ---
INFECTIOUS DISEASE PROGRESS NOTE SHARRON JONES M.D. HISTORY OF PRESENT ILLNESS: This is a very pleasant 64-year-old white male, who has no past medical history. Three weeks ago, he was diagnosed with COVID-19. He had to go to the emergency room couple times where he got some fluid. He was doing well. He was visiting my office with his who had COVID-19 recently, looked very sick when I was talking to his , he was short of breath. He did not look good at all. Told him he needed to be admitted because of concern about superimposed infection. PAST MEDICAL HISTORY: Hypertension. LABORATORY DATA: reviewed RADIOLOGY: Chest x-ray was read as no focal pneumonia. IMPRESSION: 1. No CT evidence of pulmonary embolism to the segmental level. 2. Mild bilateral lower lobe dependent atelectasis. No diffuse groundglass opacities or consolidation to suggest pneumonia. 3. Nonspecific pulmonary nodules which measure up to 5 mm. If patient is low risk, no further follow-up is indicated per Fleischner Society 2017 guidelines. PHYSICAL EXAMINATION: GENERAL: Currently alert and oriented. VITAL SIGNS: Stable. Currently afebrile but he is not hypoxemic. HEENT: He is not icteric. NECK: Supple. CHEST: Crackles bilateral. HEART: S1, S2. ABDOMEN: Soft. Bowel sounds present. EXTREMITIES: No edema. SKIN: No rash. IMPRESSION: Sepsis present on admission CHF COVID 19 PLAN: Agree with blood cultures and urine cultures We will put him on Rocephin and azithromycin, Lovenox [address] negative for PE COVID 19 for more than 3 weeks Radha Wright MSN, [employer], [facility]- Sharron Jones M.D.
[2019-11-10] MEDS ORDERED: NON-FORMULARY MEDICATION (Olmesartan Medoxomil (Benicar) 40 MG) PO SCH (17:00)
[2019-11-10] MEDS: VERAPAMIL HCL 120 MG TABSR PO SCH (17:00)
--- NOTE | 2019-11-10 17:22 | Progress Note ---
DATE: Internal Medicine Progress Note SUBJECTIVE: The patient is with cough. PHYSICAL EXAMINATION: VITAL SIGNS: Blood pressure 108/65, temperature 97.5 degrees Fahrenheit, heart rate 65 per minute, respiratory rate 20 per minute, and oxygen saturation 99%. HEART: Showed regular rate and rhythm. Normal S1 and S2 sound. LUNGS: Clear bilaterally. ABDOMEN: Soft. EXTREMITIES: Show no edema. LABORATORY DATA: On the CBC; white blood count elevated 11.24, hemoglobin 14.8, hematocrit 47.1, and platelet count 288,000. On the BMP; sodium 137, potassium 4.1, chloride 102, CO2 26, BUN 19, creatinine 0.95, glucose is 99, lactic acid 1.6, and calcium 9.5. Total troponin 0.033. Brain natriuretic peptide is 10. C-reactive protein is 2. Serology; coronavirus test is positive. MICROBIOLOGY: Blood cultures are pending. IMAGING: On the chest CT showed no CT evidence of pulmonary embolism to the segmental level. Mild bilateral lower lobe dependent atelectasis. Noted few ground-glass opacities or consolidation to suggest pneumonia. Nonspecific pulmonary nodules, which measured up to 5 mm and patient is low risk. No further followup indicated per Fleischner Society guidelines. FINAL IMPRESSION: 1. Most likely COVID-19 pneumonia. 2. Hypertension. 3. Coronary artery disease, status post stent. 4. Obesity. 5. Sepsis. PLAN OF TREATMENT: We are going to continue with Zithromax 500 mg IV daily, ceftriaxone 2 g IV once a day, normal saline 100 mL an hour, and Lovenox 40 mg subcutaneously twice a day. We are going to continue aspirin 81 mg daily, Depakote 500 mg daily, Zetia 10 mg daily, folic acid with vitamin B12 and pyridoxine which is Nephro-Carlee one tablet daily, Singulair 10 mg daily, niacin 500 mg daily, Protonix 40 mg daily, sumatriptan 100 mg daily as needed for headache, thyroid 60 mg daily, verapamil 120 mg twice a day, and zinc sulfate 50 mg daily. He is taking also Linzess 72 mcg daily and Benicar 40 mg twice a day. The patient of course on contact droplet respiratory isolation due to the COVID positivity. Dr. Medina has been consulted from Infectious Disease point of view. Time spent 45 minutes. MD RYAN Salmon/YOUNG /[id number]
[2019-11-10] MEDS ORDERED: DEPAKOTE DELAYED-RELEASE TAB 500 MG PO SCH (21:00)
[2019-11-11] VITALS: BP 111/70
[2019-11-11 04:00] VITALS: BP 117/79
[2019-11-11] MEDS: SODIUM CHLORIDE 0.9% 1000ML 1,000 ML IV SCH ×2 (05:05→09:45)
[2019-11-11 05:55] LABS: BASOPHILS # (AUTO) 0.1 (0.0-0.1); BASOPHILS % 0.7 % (0.0-1.0); EOSINOPHILS # (AUTO) 0.2 (0.0-0.4); EOSINOPHILS % 3.2 % (0.0-6.0); HEMATOCRIT 42.1 % (38.2-49.6); HEMOGLOBIN 13.7 g/dL (14.0-18.0); LYMPHOCYTES # (AUTO) 1.7 (1.0-3.2); MEAN CORPUSCULAR HEMOGLOBIN 28.8 pg (28-32); MEAN CORPUSCULAR HGB CONC 32.5 g/dL (31-35); MEAN CORPUSCULAR VOLUME 88.6 fL (81-99); MONOCYTES # (AUTO) 0.8 (0.2-0.8); MONOCYTES % 11.7 % (4.4-11.3); PLATELET COUNT 234 x10e3/uL (140-360); RED BLOOD COUNT 4.75 x10e6/uL (4.3-5.7); RED CELL DISTRIBUTION WIDTH 13.4 % (11.7-14.4)
[2019-11-11] MEDS ORDERED: THYROID 60 MG TAB PO SCH (06:00)
[2019-11-11] MEDS ORDERED: (Linaclotide (Linzess) 72 MCG) PO SCH (07:30)
--- NOTE | 2019-11-11 07:40 | NUR ---
PATIENT IS AWAKE, ALERT, AND IN STABLE CONDITION WITH NO S/S OF RESPIRATORY DISTRESS. PATIENT DENIES PAIN AND TELEMETRY APPLIED. IV FLUIDS INFUSING. CALL LIGHT IS WITHIN REACH, PATIENT INSTRUCTED TO CALL FOR ASSISTANCE NEEDED.
[2019-11-11] MEDS: VERAPAMIL HCL 120 MG TABSR PO SCH ×2 (08:26→17:01)
[2019-11-11] MEDS: ENOXAPARIN SOD INJ 40 MG/0.4 ML SYR SC SCH (08:26)
[2019-11-11] MEDS ORDERED: FOLIC ACID/CYANOCOB/PYRIDOXINE TAB PO SCH (09:00)
[2019-11-11] MEDS ORDERED: EZETIMIBE 10 MG TAB PO SCH (09:00)
[2019-11-11] MEDS ORDERED: OLMESARTAN 20 MG TAB PO SCH (09:00)
[2019-11-11] MEDS ORDERED: ASPIRIN 81 MG CHEW TAB PO SCH (09:00)
[2019-11-11] MEDS ORDERED: NIACIN 500 MG TABSR PO SCH (09:00)
[2019-11-11] MEDS ORDERED: MONTELUKAST SODIUM 10 MG TAB PO SCH (09:00)
[2019-11-11] MEDS ORDERED: PANTOPRAZOLE SOD 40 MG TABEC PO SCH (09:00)
[2019-11-11] MEDS ORDERED: ZINC SULFATE 220 MG CAP PO SCH (09:00)
[2019-11-11 09:11] VITALS: BP 112/84
[2019-11-11 09:15] VITALS: BP 112/84
[2019-11-11 13:00] VITALS: BP 114/79
[2019-11-11] MEDS: CEFTRIAXONE SOD 2 GM/NS 100 ML 100 ML IV SCH (13:00)
[2019-11-11] MEDS: AZITHROMYCIN 500MG/NS 250 ML 250 ML IV SCH (14:42)
--- NOTE | 2019-11-11 17:04 | NUR ---
infectious disease progress note the patient is doing well there is no new complaints review of systems present time HEENT negative per minute according negative the patient is feeling better. This is a very pleasant 64-year-old white male, who has no past medical history. Three weeks ago, he was diagnosed with COVID-19. He had to go to the emergency room couple times where he got some fluid. PAST MEDICAL HISTORY: Hypertension. LABORATORY DATA: reviewed RADIOLOGY: Chest x-ray was read as no focal pneumonia. IMPRESSION: 1. No CT evidence of pulmonary embolism to the segmental level. 2. Mild bilateral lower lobe dependent atelectasis. No diffuse groundglass opacities or consolidation to suggest pneumonia. 3. Nonspecific pulmonary nodules which measure up to 5 mm. If patient is low risk, no further follow-up is indicated per Fleischner Society 2017 guidelines. PHYSICAL EXAMINATION: GENERAL: Currently alert and oriented. VITAL SIGNS: Stable. Currently afebrile but he is not hypoxemic. HEENT: He is not icteric. NECK: Supple. CHEST: Crackles bilateral. HEART: S1, S2. ABDOMEN: Soft. Bowel sounds present. EXTREMITIES: No edema. SKIN: No rash. IMPRESSION: bacterial pneumonia community-acquired clinically better Sepsis present on admission CHF COVID 19 patient remains doing well continue antibiotics as ordered to finish 5 days of Rocephin
[2019-11-11 17:15] VITALS: BP 110/80
--- NOTE | 2019-11-11 17:31 | NUR ---
CALL PLACED OUT TO DR. JONES REGARDING DISCHARGE CLEARANCE- AWAITING CALLBACK.
--- NOTE | 2019-11-11 17:46 | NUR ---
RECEIVED CALLBACK FROM DR. JONES- RECEIVED OKAY TO DC PATIENT, NO ANTIBIOTICS NEEDED, AND PATIENT IS TO F/U IN 3 WEEKS
--- NOTE | 2019-11-11 18:43 | NUR ---
PATIENT DISCHARGE HOME- PATIENT OFF THE UNIT AT 1853 ACCOMPANIED BY PCT TO THE FRONT LOBBY. PATIENT IN STABLE CONDITION WITH NO S/S OF RESPIRATORY DISTRESS. NO PAIN VOICED. IV REMOVED WITH TIP INTACT. DISCHARGE TEACHING, INSTRUCTIONS, AND MEDICATIONS GIVEN TO THE PATIENT. ALL PERSONAL ITEMS TAKEN WITH THE PATIENT.
--- NOTE | 2019-11-11 19:57 | Progress Note ---
DATE: SUBJECTIVE: The patient is doing well. No distress. Still having cough. He is being discharged. PHYSICAL EXAMINATION: VITAL SIGNS: Temperature 97.9, pulse of 80, blood pressure 110/80, respiratory rate of 18, and O2 saturation 96%. CHEST: Clear to auscultation bilaterally. No wheezing. HEART: S1-S2 audible. ABDOMEN: Soft. ASSESSMENT AND PLAN: I will discharge him on albuterol inhaler, Tessalon Perles, and Symbicort one puff two times a day. He will follow up in my office in 2-3 weeks. MD NABIL Watts/YOUNG /[id number]
--- NOTE | 2019-11-12 05:48 | Discharge Summary ---
HOSPITAL COURSE: The patient is a 64-year-old male with past medical history positive for hypertension, coronary artery disease, status post stent placement, history of COVID pneumonia about a month ago, came to the hospital sent from Dr. Medina's office because of fever and cough. The patient had a CT of the chest, which showed no evidence of any infiltrate. He noticed no fever. White blood count is normal. The patient has been seen by Dr. Medina, Infectious Disease [employer] consultant, who knows the patient very well. He recommended the patient to go home. Even blood culture negative for 48 hours. PHYSICAL EXAMINATION: HEART: Showed regular rhythm. Normal S1, S2 sound. LUNGS: Clear bilaterally. ABDOMEN: Soft. FINAL IMPRESSION: 1. Fever. 2. Atelectasis. 3. Hypertension. 4. Coronary artery disease, status post stent. 5. Obesity. 6. Sepsis, which has resolved. 7. History of prior COVID pneumonia, but no evidence of pneumonia at this time. He tested positive for COVID-19. PLAN OF TREATMENT: According to Dr. Medina, he meets criteria due to the fact that he had a COVID-19 more than a month ago. So, on the discharge, he is going to: 1. Continue aspirin 81 mg daily. 2. He is on Depakote 500 mg at bedtime. 3. Zetia 10 mg daily. 4. Multivitamin one tablet daily. 5. Guaifenesin 200 mg q.4 hours as needed for cough. 6. Continue Singulair 10 mg daily. 7. Niacin 500 mg daily. 8. Benicar 40 mg daily. 9. Protonix 40 mg daily. 10. Thyroid 60 mg daily. 11. Verapamil 120 mg twice a day for hypothyroidism. 12. Zinc sulfate 220 mg daily. The patient going to be discharged home today, if okay with Dr. Medina. Oxygen is also normal 97%. Afebrile. White blood count is normal and chest x-ray did not show any evidence of any infiltrate. MD RYAN Salmon/YOUNG /[id number]
== END 2019-11-11 18:53 | disposition home or self-care (01) | DRG 871 ==
LOC: ER 13:43 → ERHOLD 14:01 → MED/SURG3 17:12 → OBSVTOIN 11-10 08:35
PROVIDERS: ADMIT Internal Medicine; ATTEND Internal Medicine
PROC: 8E0ZXY6 Isolation (ICD-10-PCS; principal; 2019-11-10)
DX: A41.89 Other specified sepsis (principal); U07.1 COVID-19; J15.9 Unspecified bacterial pneumonia; I25.10 Atherosclerotic heart disease of native coronary artery without angina pectoris; E66.9 Obesity, unspecified; I50.9 Heart failure, unspecified; I11.0 Hypertensive heart disease with heart failure; Z68.36 Body mass index [BMI] 36.0-36.9, adult; Z95.5 Presence of coronary angioplasty implant and graft
CPT/HCPCS: 36415; 71045; 71260; 80048; 80053; 83605; 83880; 84484; 85025; 85651; 86140; 87040; 93005; 99283; G0378; J0456; J0696; J1650; J7030; Q9967; U0002